=== PATIENT | female | born 1940 | race African-American/Black ===

== ENCOUNTER 2018-05-18 12:54 | Emergency (ER) | payer OTHER ==
--- OUTSIDE RECORDS SUMMARY | 2018-05-18 12:55 | XMS REPORT | Clinical Summary ---
:1940 Author Organization [facility] Address [address] [place] [address] Care Team Providers Name Role Phone Sue Jose DO Primary Care Provider Allergies Active Allergy Reactions Severity Noted Date Comments Codeine 12/27/2016 Iodine 12/27/2016 Penicillins 12/27/2016 Current Medications Prescription Sig. Disp. Refills Start Date End Date Status citalopram (CeleXA) TK 1/2 T PO 5 10/28/2016 Active 10 MG tablet QD. BYSTOLIC 10 mg TK 1 T PO 2 10/17/2016 Active tablet BID. lisinopril TK 1 T PO QD 5 12/20/2016 Active (PRINIVIL,ZESTRIL) 20 mg tablet GABAPENTIN ORAL Take by Active mouth. aspirin (ECOTRIN) Take 81 mg by Active 81 MG enteric mouth daily. coated tablet ASCORBATE CALCIUM Take by Active (VITAMIN C ORAL) mouth. CHOLECALCIFEROL, Take by Active VITAMIN D3, mouth. (VITAMIN D3 ORAL) rosuvastatin Take 20 mg by Active (CRESTOR) 20 MG mouth daily. tablet hydrALAZINE Take 1 tablet 180 tablet 3 06/13/2017 06/13/2018 Active (APRESOLINE) 50 MG (50 mg total) tablet by mouth 2 (two) times a day. clopidogrel TK 1 T PO QD 90 tablet 3 09/06/2017 Active (PLAVIX) 75 mg tablet clopidogrel TK 1 T PO QD 3 12/01/2016 09/06/2017 Discontinued (PLAVIX) 75 mg tablet fentaNYL UNW AND JUDY 1 0 10/21/2016 06/13/2017 Discontinued (DURAGESIC) 75 PA TO SKIN Q mcg/hr 3 DAYS. hydrALAZINE TK 1 T PO BID 3 10/13/2016 06/13/2017 Discontinued (APRESOLINE) 25 MG tablet lisinopril TK 1 T PO QD. 5 10/26/2016 06/13/2017 Discontinued (PRINIVIL,ZESTRIL) 10 mg tablet memantine (NAMENDA) 5 10/05/2016 06/13/2017 Discontinued 5 MG tablet Active Problems Problem Noted Date Essential hypertension 06/13/2017 Chest pain 12/27/2016 Coronary artery disease involving [place] heart without angina pectoris 2016 PAD (peripheral artery disease) 12/27/2016 Encounters Date Type Specialty Care Team Description 09/06/2017 Refill Cardiology Terry Mendenhall MA Med Refill 06/13/2017 Office Visit Cardiology Kenn Diane MD Essential hypertension (Primary Dx); Coronary artery disease involving [place] coronary artery of [place] heart without angina pectoris 06/13/2017 Refill Cardiology Smita Jay, Med Refill MA after 05/17/2017 Social History Tobacco Use Types Packs/Day Years Used Date Never Smoker Smokeless Tobacco: Never Used Alcohol Use Drinks/Week oz/Week Comments No Sex Assigned at Date Recorded Not on file Last Filed Vital Signs Vital Sign Reading Time Taken Blood Pressure 199/88 06/13/2017 2:25 PM CDT Pulse 58 06/13/2017 2:18 PM CDT Temperature - - Respiratory Rate - - Oxygen Saturation - - Inhaled Oxygen Concentration - - Weight 61.7 kg (136 lb) 06/13/2017 2:18 PM CDT Height 162.6 cm (5' 4") 06/13/2017 2:18 PM CDT Body Mass Index 23.34 06/13/2017 2:18 PM CDT Plan of Treatment Date Type Specialty Care Team Description 06/12/2018 Office Visit Cardiology Kenn Diane MD [address] [facility] [address] [place] [address] Health Maintenance Due Date Last Done Comments SHINGRIX VACCINE (#1) 1988 ZOSTER VACCINE 1998 PNEUMOCOCCAL POLYSACCHARIDE VACCINE AGE 65 AND OVER 2003 PNEUMOCOCCAL-13 2003 INFLUENZA VACCINE 06/27/2018 Results Not on fileafter 05/17/2017 Insurance Payer Benefit Plan / Group Subscriber ID Type Phone Address HUMANA MEDICARE HUMANA MEDICARE PPO/PFFS/ERS [facility] xxxxxxxxx PPO [phone] [place] [id number]
--- OUTSIDE RECORDS SUMMARY | 2018-05-18 12:55 | XMS REPORT | Continuity of Care Document ---
:1940 Author Organization Interface Problems Problem Status Onset Classification Date Comments Source Date Reported CERVICAL NECK Active Condition 07/06/2015 [facility] CERVICAL Active Condition 07/06/2015 [facility] RADICULOPATHY 5 [facility] CERVICAL Active Condition 07/06/2015 [facility] SPONDYLOSIS 5 [facility] WITHOUT MYELOPATHY CHRONIC PAIN Active Condition 07/06/2015 [facility] SYNDROME 5 [facility] HEADACHE Active Condition 07/06/2015 [facility] Medications Medication Details Route Status Patient Ordering Order Source Instructions Provider Date OMEPRAZOLE 40 Active 07/06/20 [facility] CPDR 15 Neuro GABAPENTIN 300 2 tabs po Active 07/06/20 [facility] CAPS qhs 15 Neuro CLOPIDOGREL Active 07/06/20 [facility] BISULFATE 75 15 Neuro MG TABS CRESTOR TABS Active 07/06/20 [facility] 15 [facility] LISINOPRIL 20 Active 07/06/20 [facility] TABS 15 Neuro BYSTOLIC 10 MG Active 07/06/20 [facility] TABS 15 Neuro HYDRALAZINE Active 07/06/20 [facility] HCL 20 MG/ML 15 Neuro SOLN FENTANYL 50 Active 07/06/20 [facility] MCG/HR PT72 15 Neuro VITAMIN C CAPS Active 07/06/20 [facility] 15 Neuro VITAMIN D TABS Active 07/06/20 [facility] 15 [facility] Allergies, Adverse Reactions, Alerts Substance Category Reaction Severity Reaction Status Date Comments Source type Reported IODINE Drug IODINE [facility] allergy 5 Neuro PENICILLIN Drug PENICILLIN [facility] allergy 5 [facility] Immunizations Immunization Date Given Site Status Last Updated Comments Source Results Order Results Value Reference Date Interpretation Comments Source Name Range Vital Signs Vital Sign Value Date Comments Source Weight 141 07/06/2015 [facility] Height 64 07/06/2015 [facility] Temperature Oral (F) 97.7 F 07/06/2015 [facility] Heart Rate 62 07/06/2015 [facility] Systolic (mm Hg) 210 07/06/2015 [facility] Diastolic (mm Hg) 78 07/06/2015 [facility] Neuro Weight 141 07/06/2015 [facility] Neuro Height 64 07/06/2015 [facility] Neuro Temperature Oral (F) 97.7 F 07/06/2015 [facility] Neuro Heart Rate 62 07/06/2015 [facility] Neuro Systolic (mm Hg) 210 07/06/2015 [facility] Neuro Diastolic (mm Hg) 78 07/06/2015 [facility] Neuro Encounters Location Location Encounter Encounter Reason Attending ADM DC Status Source Details Type Number For Provider Date Date Visit [facility] Office [id number] Tim 07/06 07/06 [facility] Neuroscienc Visit [address] LEDEZMA /2014 Neuro e [facility] [id number] ZACHARY 03/21 Active [facility] [place] Outpatient [id number] ZACHARY 05/17 Active [facility] [place] Outpatient [id number] ZACHARY 05/31 Active [facility] [place] Outpatient [id number] ZACHARY 09/19 Active [place] [address] [place] Procedures Procedure Code Date Perfomer Comments Source smoking/tobacco 14 07/06/2015 yes [facility] Neuro cessation, patient education and counseling
--- OUTSIDE RECORDS SUMMARY | 2018-05-18 12:55 | XMS REPORT | Continuity of Care Document ---
:1940 Author Organization [facility] Care Team Providers Name Role Phone Eyal LEDEZMA, Tim Adler Unavailable Insurance Providers Payer name Policy type / Policy ID Covered democrat ID Policy Thayer Coverage type AETNA - TRS ACTIVECARE SELECT - OPEN ACCESS AETNA - TRS ACTIVECARE SELECT - OPEN ACCESS Encounters Encounter Performer Location Date Office Visit Tim Birch MD [facility] [place] 06, 2015 Allergies, Adverse Reactions, Alerts Type Substance Reaction Status Drug allergy IODINE itching Active Drug allergy PENICILLIN Active Problems Problem Effective Dates Problem Status CERVICAL NECK PAIN Jul 06, 2015 Active CERVICAL RADICULOPATHY Jul 06, 2015 Active 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, 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 CHRONIC PAIN SYNDROME Jul 06, 2015 Active Procedures Date Description Comments Jul 02, 2015 smoking status currrent some day smoker Jul 06, 2015 smoking status Current some day smoker Jul 06, 2015 smoking/tobacco cessation, patient education yes and counseling Medications Medication Instructions Start Date Status OMEPRAZOLE 40 MG CPDR Jul 06, 2015 Active GABAPENTIN 300 MG CAPS 2 tabs po qhs Jul 06, 2015 Active CLOPIDOGREL BISULFATE 75 MG TABS Jul 06, 2015 Active CRESTOR TABS Jul 06, 2015 Active LISINOPRIL 20 MG TABS Jul 06, 2015 Active BYSTOLIC 10 MG TABS Jul 06, 2015 Active HYDRALAZINE HCL 20 MG/ML SOLN Jul 06, 2015 Active FENTANYL 50 MCG/HR PT72 Jul 06, 2015 Active VITAMIN C CAPS Jul 06, 2015 Active VITAMIN D TABS Jul 06, 2015 Active Vital Signs Date Description Test Result Jul 06, 2015 weight E&M - 3141-9 WEIGHT 141 lb Jul 06, 2015 height E&M - 8302-2 HEIGHT 64 in Jul 06, 2015 temperature E&M TEMPERATURE 97.7 deg f Jul 06, 2015 pulse rate E&M - 8867-4 PULSE RATE 62 /min Jul 06, 2015 blood pressure, systolic - 8480-6 BP SYSTOLIC 210 mm Hg Jul 06, 2015 blood pressure, diastolic - 8462-4 BP DIASTOLIC 78 mm Hg Jul 06, 2015 weight E&M - 3141-9 WEIGHT 141 lb Jul 06, 2015 height E&M - 8302-2 HEIGHT 64 in Jul 06, 2015 temperature E&M TEMPERATURE 97.7 deg f Jul 06, 2015 pulse rate E&M - 8867-4 PULSE RATE 62 /min Jul 06, 2015 blood pressure, systolic - 8480-6 BP SYSTOLIC 210 mm Hg Jul 06, 2015 blood pressure, diastolic - 8462-4 BP DIASTOLIC 78 mm Hg
--- OUTSIDE RECORDS SUMMARY | 2018-05-18 12:56 | XMS REPORT | Continuity of Care Document ---
:1940 Author Organization [facility] Care Team Providers Name Role Phone Eyal LEDEZMA, Tim Adler Unavailable Insurance Providers Payer name Policy type / Policy ID Covered constitution party ID Policy Thayer Coverage type AETNA - TRS ACTIVECARE SELECT - OPEN ACCESS AETNA - TRS ACTIVECARE SELECT - OPEN ACCESS Encounters Encounter Performer Location Date Office Visit Tim Birch MD [facility] Jul 06, 2015 Allergies, Adverse Reactions, Alerts Type Substance Reaction Status Drug allergy IODINE itching Active Drug allergy PENICILLIN Active Problems Problem Effective Dates Problem Status CERVICAL NECK PAIN Jul 06, 2015 Active CERVICAL RADICULOPATHY Jul 06, 2015 Active 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
[2018-05-18 14:05] LABS: Absolute Lymphocytes (CBC) 2.4 K/uL (0.7-4.9); Absolute Monocytes 0.8 K/uL (0.1-1.3); Absolute Neutrophil 4.2 K/uL (1.8-8.0); Basophils % 1.1 % (0-1.3); Eosinophils % 1.7 % (0-4.4); Hematocrit 21.8 % (36.0-45.0); Lymphocytes % 31.3 % (15.3-44.8); MCH 25.7 pg (27.0-35.0); MCV 84.2 fL (80-100); MPV 9.1 fL (7.6-11.3); Monocytes % 10.4 % (3.3-12.3); RBC Red Blood Cell Count 2.58 M/uL (3.86-4.86)
[2018-05-18 14:31] LABS: Anisocytosis 1+; Blood Morphology Comment NOTED (NOT SEEN); Hypochromasia 1+; Platelet Estimate ADEQ; Poikilocytosis 2+; Polychromasia 1+
--- NOTE | 2018-05-18 14:37 | RAD REPORT ---
EXAM DESCRIPTION: Dago Worley And Lat (2 Views)05/18/2018 2:29 pm CLINICAL HISTORY: Shortness of breath COMPARISON: 2016 FINDINGS: The proximal descending thoracic aorta is without significant change in appearance. It is prominent. The lungs appear clear of acute infiltrate. The heart is mildly enlarged IMPRESSION: Prominence of the descending thoracic aorta is unchanged from the prior exam. It is eith er ectatic or aneurysmal. Further evaluation could be obtained with CAT scan.
[2018-05-18 14:41] LABS: Urine Blood NEGATIVE (NEG); Urine Glucose NEGATIVE (NEG); Urine Protein 2+ (NEG)
[2018-05-18 14:46] LABS: Urine Bacteria 20-50 /HPF (<20); Urine Culture Reflex Order REFLEXED; Urine RBC <5 /HPF (NONE SEEN)
[2018-05-18] MEDS ORDERED: PANTOPRAZOLE 40 MG INJ ONE (14:55)
[2018-05-18] MEDS ORDERED: NA CHLORIDE 0.9% 250 ML ONE (14:55)
[2018-05-18 14:56] LABS: Potassium 4.9 mmol/L (3.5-5.1)
--- NOTE | 2018-05-18 15:28 | EDPHYS ---
Physician Documentation [facility] Name: Safia Christensen Age: 77 yrs Sex: Female : 1940 Arrival Date: 05/18/2018 Time: 12:56 Bed 30 Private MD: Sue Jose H ED Physician Martín Donohue HPI: 05/18 15:16 This 77 yrs old Black Female presents to ER via Wheelchair with complaints of Anemia. rn 15:[address] Hull for anemia, + chronic kidney disease, reports dark stool, no rn fever, no abd pain, + generalized weakness.. Onset: The symptoms/episode began/occurred at an unknown time. Severity of symptoms: At their worst the symptoms were mild in the emergency department the symptoms are unchanged. The patient has experienced a previous episode. The patient has been recently seen by a physician:. Historical: - Allergies: 13:06 No Known Allergies; sv - PMHx: 13:06 Arthritis; High Cholesterol; Hypertension; sv - PSHx: 13:06 Hysterectomy; cardiac stents; sv - Immunization history:: Adult Immunizations up to date. - Social history:: Smoking status: Patient uses tobacco products, denies chronic smoking, but will smoke occasionally. - Ebola Screening: : No symptoms or risks identified at this time. - Family history:: not pertinent. - Hospitalizations: : No recent hospitalization is reported. ROS: 15:16 Constitutional: Negative for fever, chills, and weight loss, Eyes: Negative for injury, rn pain, redness, and discharge, Neck: Negative for injury, pain, and swelling, Cardiovascular: Negative for chest pain, palpitations, and edema, Respiratory: + mild sob Abdomen/GI: Negative for abdominal pain, nausea, vomiting, diarrhea, and constipation, + dark stool MS/Extremity: Negative for injury and deformity, Skin: Negative for injury, rash, and discoloration, Neuro: Negative for headache, weakness, numbness, tingling, and seizure. Exam: 14:16 Abdomen/GI: Rectal exam: Stool: brown, guaiac positive. rn Vital Signs: 13:07 BP 116 / 58; Pulse 60; Resp 18; Temp 97.3; Pulse Ox 100% ; Weight 65.77 kg; Height 5 sv ft. 4 in. (162.56 cm); 14:09 BP 104 / 49; Pulse 65; Resp 16; Pulse Ox 100% ; tl3 15:17 BP 137 / 75; Pulse 51; Resp 16; Pulse Ox 99% on R/A; Pain 0/10; kr2 16:30 BP 121 / 62; Pulse 72; Resp 18; Temp 97.9; Pulse Ox 99% on R/A; kr2 16:35 BP 130 / 66; Pulse 76; Resp 18; Temp 98.4; Pulse Ox 99% on R/A; kr2 16:40 kr2 13:07 Body Mass Index 24.89 (65.77 kg, 162.56 cm) sv 16:30 prior to start of transfusion kr2 16:35 5 minutes after start of transfusion kr2 16:40 Patient transferred to EMS care, [facility] to continue transfusion in route to kr2 receiving facility MDM: 13:03 Patient medically screened. rn 15:20 ED course: [facility], waiting for GI rn clearance. . 15:25 Differential Diagnosis anemia, UGIB. Data reviewed: vital signs, nurses notes, lab test rn result(s), EKG, radiologic studies, and as a result, I will admit patient. Counseling: I had a detailed discussion with the patient and/or guardian regarding: the historical points, exam findings, and any diagnostic results supporting the discharge/admit diagnosis, lab results, radiology results, the need to transfer to another facility, [facility] does not immediately have the required specialist. Response to treatment: the patient's symptoms have mildly improved after treatment, and as a result, I will admit patient. Admission orders: after a detailed discussion of the patient's condition and case, the admit orders are written by me. 05/18 13:16 Order name: CBC with Diff; Complete Time: 14:42 rn 05/18 13:16 Order name: Basic Metabolic Panel; Complete Time: 15:13 rn 05/18 13:16 Order name: Type And Screen rn 05/18 13:16 Order name: Troponin (emerg Dept Use Only); Complete Time: 14:42 rn 05/18 13:16 Order name: BNP; Complete Time: 15:13 rn 05/18 13:18 Order name: Urine Microscopic Only; Complete Time: 15:13 rn 05/18 13:16 Order name: XRAY Chest Pa And Lat (2 Views); Complete Time: 14:42 rn 05/18 14:17 Order name: Occult Blood--Ancillary 05/18 14:20 Order name: Manual Differential; Complete Time: 14:42 [facility] 05/18 14:23 Order name: Urine Dipstick--Ancillary (enter results); Complete Time: 14:42 bd 05/18 14:48 Order name: Urine Culture [facility] 05/18 14:59 Order name: Bb Add On 05/18 15:29 Order name: Packed RBC Leukored -1 [facility] 05/18 13:16 Order name: IV Start; Complete Time: 15:16 rn 05/18 13:16 Order name: EKG; Complete Time: 13:16 rn 05/18 13:16 Order name: EKG - Nurse/Tech; Complete Time: 14:08 rn 05/18 13:16 Order name: Urine Dipstick-Ancillary (obtain specimen); Complete Time: 15:16 rn Administered Medications: 15:10 Drug: ProTONIX 40 mg Route: IVP; Site: left antecubital; kr2 16:04 Follow up: Response: No adverse reaction kr2 15:15 Drug: ProTONIX 8 mg/hr Route: IV; Rate: 25 ml/hr; Site: left antecubital; kr2 Disposition: 05/18/18 15:[address] [facility]. Diagnosis are Upper GI Bleed, Anemia, Weakness. - Reason for transfer: Higher level of care. - Accepting physician is . - Condition is Stable. - Problem is an ongoing problem. - Symptoms have improved. Signatures: Dispatcher [employer] [facility] Deb Noriega RN Martín Arreaga MD MD rn Reaves, Karey, RN RN kr2 Gladis Aguilar RN RN tl3 Corrections: (The following items were deleted from the chart) 16:45 15:27 05/18/2018 15:[address] [facility]. Diagnosis is tl3 Upper GI Bleed; Anemia; Weakness. Reason for transfer: Higher level of care. Accepting physician is . Condition is Stable. Problem is an ongoing problem. Symptoms have improved. rn
--- NOTE | 2018-05-18 15:28 | ER ---
Nurse's Notes [facility] Name: Safia Christensen Age: 77 yrs Sex: Female : 1940 Arrival Date: 05/18/2018 Time: 12:56 Bed 30 Private MD: Sue Jose H Diagnosis: Upper GI Bleed;Anemia;Weakness Presentation: 05/18 13:05 Presenting complaint: Patient states: sent by Dr Hull for low hemoglobin by lab draw sv this morning. Pt reports weakness, Denies SOB or CP. Transition of care: patient was not received from another setting of care. Onset of symptoms was May 18, 2018. Risk Assessment: Do you want to hurt yourself or someone else? Patient reports no desire to harm self or others. Care prior to arrival: None. 13:05 Method Of Arrival: Wheelchair sv 13:05 Acuity: DARSHAN 3 sv 13:23 Initial Sepsis Screen: Does the patient meet any 2 criteria? No. Patient's initial kr2 sepsis screen is negative. Does the patient have a suspected source of infection? No. Patient's initial sepsis screen is negative. Historical: - Allergies: 13:06 No Known Allergies; sv - PMHx: 13:06 Arthritis; High Cholesterol; Hypertension; sv - PSHx: 13:06 Hysterectomy; cardiac stents; sv - Immunization history:: Adult Immunizations up to date. - Social history:: Smoking status: Patient uses tobacco products, denies chronic smoking, but will smoke occasionally. - Ebola Screening: : No symptoms or risks identified at this time. - Family history:: not pertinent. - Hospitalizations: : No recent hospitalization is reported. Screenin:22 Abuse screen: Denies threats or abuse. Denies injuries from another. Nutritional kr2 screening: No deficits noted. Tuberculosis screening: No symptoms or risk factors identified. Fall Risk None identified. Assessment: 13:14 General: Appears in no apparent distress. comfortable, well groomed, well developed, kr2 well nourished, Behavior is calm, cooperative, appropriate for age. Pain: Denies pain. Neuro: Level of Consciousness is awake, alert, obeys commands, Oriented to person, place, time, situation, Appropriate for age. Cardiovascular: Reports fatigue, lightheadedness, Heart tones S1 S2 present Capillary refill < 3 seconds in bilateral fingers Patient's skin is warm and dry. Respiratory: Airway is patent Respiratory effort is even, unlabored, Respiratory pattern is regular, symmetrical. GI: Abdomen is flat, non-distended. GI: Reports dark stools. : Denies burning with urination. EENT: Nares are clear Oral mucosa is moist. Derm: Skin is intact, is healthy with good turgor, Skin is pink, warm \T\ dry. Musculoskeletal: Circulation, motion, and sensation intact. 14:15 Reassessment: Patient appears in no apparent distress at this time. Patient and/or kr2 family updated on plan of care and expected duration. Pain level reassessed. Patient is alert, oriented x 3, equal unlabored respirations, skin warm/dry/pink. Patient denies pain at this time. 15:16 Reassessment: Patient appears in no apparent distress at this time. Patient and/or kr2 family updated on plan of care and expected duration. Pain level reassessed. Patient is alert, oriented x 3, equal unlabored respirations, skin warm/dry/pink. Patient denies pain at this time. 16:00 Reassessment: Report called to receiving facility nurse, TAM Murphy. kr2 16:30 Reassessment: Patient appears in no apparent distress at this time. Patient and/or kr2 family updated on plan of care and expected duration. Pain level reassessed. Patient is alert, oriented x 3, equal unlabored respirations, skin warm/dry/pink. Blood transfusion initiated, Vi Goddard RN verified blood products and blood transfusion initiated Patient denies pain at this time. 16:40 Reassessment: Patient appears in no apparent distress at this time. Patient and/or kr2 family updated on plan of care and expected duration. Pain level reassessed. Patient is alert, oriented x 3, equal unlabored respirations, skin warm/dry/pink. Transfer of care to EMS, blood transfusion to continue in route. Dr. Donohue aware Patient denies pain at this time. Vital Signs: 13:07 BP 116 / 58; Pulse 60; Resp 18; Temp 97.3; Pulse Ox 100% ; Weight 65.77 kg; Height 5 sv ft. 4 in. (162.56 cm); 14:09 BP 104 / 49; Pulse 65; Resp 16; Pulse Ox 100% ; tl3 15:17 BP 137 / 75; Pulse 51; Resp 16; Pulse Ox 99% on R/A; Pain 0/10; kr2 16:30 BP 121 / 62; Pulse 72; Resp 18; Temp 97.9; Pulse Ox 99% on R/A; kr2 16:35 BP 130 / 66; Pulse 76; Resp 18; Temp 98.4; Pulse Ox 99% on R/A; kr2 16:40 kr2 13:07 Body Mass Index 24.89 (65.77 kg, 162.56 cm) sv 16:30 prior to start of transfusion kr2 16:35 5 minutes after start of transfusion kr2 16:40 Patient transferred to [facility] care, [facility] to [facility] transfusion in route to kr2 receiving facility ED Course: 12:56 Patient arrived in ED. mr 12:56 Sue Jose DO is Private Physician. mr 13:02 Karina Davis, RN is Primary Nurse. kr2 13:03 Martín Donohue MD is Attending Physician. rn 13:06 Triage completed. sv 13:07 Arm band placed on right wrist. sv 13:23 Patient has correct armband on for positive identification. Bed in low position. Call kr2 light in reach. Side rails up X 1. Adult w/ patient. monitoring analyst on. Pulse ox on. NIBP on. Door closed. Warm blanket given. Pillow given. Head of bed elevated. 13:32 EKG done, by oncology technician. reviewed by Martín Donohue MD. sm3 14:00 Missed attempt(s): 22 gauge in right forearm. Bleeding controlled, band aid applied, dh3 catheter tip intact. 14:00 Initial lab(s) drawn, by md, sent to lab. T\T\S collected, blood band applied to patient. dh3 14:26 XRAY Chest Pa And Lat (2 Views) In Process Unspecified. EDMS 14:45 Inserted saline lock: 20 gauge in left antecubital area, using aseptic technique. Blood kr2 collected. 16:13 Consent for blood and/or blood product transfusion explained by staff, explained by kr2 physician, signed by patient. 16:28 Inserted saline lock: 22 gauge in right antecubital area, using aseptic technique. dh3 16:40 No provider procedures requiring assistance completed. Patient transferred, IV remains kr2 in place. Administered Medications: 15:10 Drug: ProTONIX 40 mg Route: IVP; Site: left antecubital; kr2 16:04 Follow up: Response: No adverse reaction kr2 15:15 Drug: ProTONIX 8 mg/hr Route: IV; Rate: 25 ml/hr; Site: left antecubital; kr2 Outcome: 15:27 ER care complete, transfer ordered by . rn 16:40 Transferred by ground EMS to [facility], Transfer form completed. kr2 16:40 Condition: stable 16:40 Instructed on the need for transfer. 16:45 Patient left the ED. tl3 Signatures: Dispatcher [employer] EDDeb Gallardo RN RN sv Rivera, Maria mr Nieto, Roman, MD MD rn Herrera, Madeleine [facility] Karina Davis RN RN kr2 Gladis Aguilar RN RN tl3 Digna العلي 3
[2018-05-18 17:14] VITALS: TEMP 97.3
[2018-05-18 17:28] VITALS: BP 137/75; O2SAT 99
--- NOTE | 2018-05-18 17:31 | EKG ---
Test Date: 2018-05-18 Test Time: 13:26:06 Parts Clerk: SERJIO MEASUREMENT RESULTS: Intervals: Rate: 60 NE: 200 QRSD: 86 QT: 446 QTc: 446 [place]: P: 35 NE: 200 QRS: 85 T: 39 INTERPRETIVE STATEMENTS: Sinus rhythm with premature atrial complexes with aberrant conduction Nonspecific T wave abnormality Abnormal ECG Compared to ECG 07/26/2016 10:11:04 Atrial premature complex(es) now present Aberrant conduction of supraventricular beat(s) now present T-wave abnormality now present Sinus bradycardia no longer present Left ventricular hypertrophy no longer present Electronically Signed On 05-18-18 17:30:16 CDT by Nathaniel Grajeda
== END 2018-05-18 16:45 | disposition short-term general hospital (02) ==
LOC: ER 12:54
PROC: 30233N1 Transfusion of Nonautologous Red Blood Cells into Peripheral Vein, Percutaneous Approach (ICD-10-PCS; principal; 2018-05-18)
DX: D64.9 Anemia, unspecified (principal); I12.9 Hypertensive chronic kidney disease with stage 1 through stage 4 chronic kidney disease, or unspecified chronic kidney disease; N18.9 Chronic kidney disease, unspecified; Z72.0 Tobacco use; Z95.818 Presence of other cardiac implants and grafts
CPT/HCPCS: 36415; 36430; 71046; 80048; 82272; 83880; 84484; 85025; 86850; 86900; 86901; 87086; 87088; 93005; 96374; 99285; C9113; P9016; 72100; 81003; 81015; 82565; 84520; 85652

== ENCOUNTER 2019-02-22 10:32 | Inpatient (IN) | payer OTHER ==
--- OUTSIDE RECORDS SUMMARY | 2019-02-22 10:35 | XMS REPORT | Clinical Summary ---
:1940 Author Organization [facility] Address [address] [place] [address] Care Team Providers Name Role Phone Sue Jose DO Primary Care Provider Allergies Active Allergy Reactions Severity Noted Date Comments Codeine 12/27/2016 Iodine 12/27/2016 Nsaids (Non-Steroidal 05/19/2018 History of gastritis and Anti-Inflammatory Drug) ulcers Penicillins 12/27/2016 Medications Medication Sig Dispensed Refills Start Date End Date Status citalopram TK 1/2 T PO 5 10/28/2016 Active (CeleXA) 10 MG QD. tablet lisinopril TK 1 T PO QD 5 12/20/2016 Active (PRINIVIL,ZESTRIL) 20 mg tablet aspirin (ECOTRIN) Take 81 mg by 0 Active 81 MG enteric mouth daily. coated tablet ASCORBATE CALCIUM Take by mouth. 0 Active (VITAMIN C ORAL) CHOLECALCIFEROL, Take by mouth. 0 Active VITAMIN D3, (VITAMIN D3 ORAL) rosuvastatin Take 20 mg by 0 Active (CRESTOR) 20 MG mouth daily. tablet gabapentin TK 2 CS PO 0 04/30/2018 Active (NEURONTIN) 300 mg BID. capsule pantoprazole Take 40 mg by 0 Active (PROTONIX) 40 MG mouth daily. EC tablet hydrALAZINE Take 1 tablet 270 tablet 3 06/12/2018 06/12/2019 Active (APRESOLINE) 50 MG (50 mg total) tablet by mouth 3 (three) times a day. metoprolol Take 1 tablet 90 tablet 3 06/12/2018 06/12/2019 Active succinate XL (50 mg total) (TOPROL-XL) 50 mg by mouth 24 hr tablet daily. memantine 5 11/10/2018 Active (NAMENDA) 5 MG tablet amLODIPine Take 1 tablet 90 tablet 3 12/11/2018 Active (NORVASC) 5 mg (5 mg total) tablet by mouth daily. clopidogrel TAKE 1 TABLET 90 tablet 0 12/12/2018 Active (PLAVIX) 75 mg BY MOUTH EVERY tablet DAY clopidogrel TAKE 1 TABLET 90 tablet 0 01/08/2019 Active (PLAVIX) 75 mg BY MOUTH EVERY tablet DAY BYSTOLIC 10 mg TK 1 T PO 2 10/17/2016 06/12/2018 Discontinued tablet BID. GABAPENTIN ORAL Take 300 mg by 0 06/12/2018 Discontinued mouth 2 (two) times a day. 2 capsules twice a day hydrALAZINE Take 1 tablet 180 tablet 3 06/13/2017 06/12/2018 Discontinued (APRESOLINE) 50 MG (50 mg total) tablet by mouth 2 (two) times a day. clopidogrel TK 1 T PO QD 90 tablet 3 09/06/2017 10/16/2018 Discontinued (PLAVIX) 75 mg tablet clopidogrel TAKE 1 TABLET 90 tablet 0 10/16/2018 12/12/2018 Discontinued (PLAVIX) 75 mg BY MOUTH EVERY tablet DAY Active Problems Problem Noted Date Bilateral carotid bruits 12/11/2018 Essential hypertension 06/13/2017 Chest pain 12/27/2016 Coronary artery disease involving torres martinez heart without angina pectoris 2016 PAD (peripheral artery disease) 12/27/2016 Encounters Date Type Specialty Care Team Description 01/08/2019 Refill Cardiology Kenn Becerril MD Med Refill 12/12/2018 Refill Cardiology Kenn Becerril MD Med Refill 12/11/2018 Office Visit Cardiology Kenn Becerril MD Coronary artery disease involving torres martinez coronary artery of torres martinez heart without angina pectoris (Primary Dx); Essential hypertension; PAD (peripheral artery disease) (HCC); Bilateral carotid bruits 10/16/2018 Refill Cardiology Kenn Becerril MD Med Refill 06/12/2018 Office Visit Cardiology Kenn Becerril MD Coronary artery disease involving torres martinez coronary artery of torres martinez heart without angina pectoris (Primary Dx); PAD (peripheral artery disease); Essential hypertension after 02/21/2018 Family History Relation Name Status Comments Father Mother Social History Tobacco Use Types Packs/Day Years Used Date Never Smoker Smokeless Tobacco: Never Used Alcohol Use Drinks/Week oz/Week Comments No Sex Assigned at Date Recorded Not on file Job Start Date Occupation Industry Not on file Not on file Not on file Travel History Travel Start Travel End No recent travel history available. Last Filed Vital Signs Vital Sign Reading Time Taken Blood Pressure 160/87 12/11/2018 1:11 PM [employer] Pulse 62 12/11/2018 1:11 PM [employer]ERK Temperature - - Respiratory Rate - - Oxygen Saturation - - Inhaled Oxygen Concentration - - Weight 70.3 kg (155 lb) 12/11/2018 1:11 PM [employer]LE[employer] CLERK Height 165.1 cm (5' 5") 12/11/2018 1:11 PM [employer]LE[employer] CLERK Body Mass Index 25.79 12/11/2018 1:11 PM [employer]LE[employer] CLERK Plan of Treatment Date Type Specialty Care Team Description 06/11/2019 Office Visit Cardiology Kenn Becerril MD [address] [facility] [address] [place] [phone] Health Maintenance Due Date Last Done Comments SHINGLES VACCINES (#1) 1988 65+ PNEUMOCOCCAL VACCINE (1 of 2 - PCV13) 2003 PNEUMOCOCCAL POLYSACCHARIDE VACCINE AGE 65 AND OVER 2003 INFLUENZA VACCINE 06/27/2018 Procedures Procedure Name Priority Date/Time Associated Diagnosis Comments US CAROTID DUPLEX Routine 12/13/2018 11:50 AM Coronary artery Results for this BILATERAL [employer]LE[employer] CLERK disease involving procedure are in torres martinez coronary the results artery of torres martinez section. heart without angina pectoris Essential hypertension PAD (peripheral artery disease) (HCC) Bilateral carotid bruits US RENAL DOPPLER Routine 12/11/2018 3:49 PM Coronary artery Results for this [employer]LE[employer] CLERK disease involving procedure are in torres martinez coronary the results artery of torres martinez section. heart without angina pectoris Essential hypertension PAD (peripheral artery disease) (HCC) Bilateral carotid bruits after 02/21/2018 Results Us carotid duplex (12/13/2018 11:50 AM BANK [employer] C[employer] COLLECTION CLERK) Narrative Performed At [facility] Carotid Artery Ultrasound Report Pat.Name:LAUREN HELLER.ID:[id number] .Date: 12/13/2018 Refer.MD:KENN BECERRIL MD Exam Time: 11:13:00 AM Study Type:Carotid DOBAge:1940,78YSex: FEMALE Sonogrphr: Sugey Rucker RVT Pat. Stat.:Outpatient Room:[facility] TapeVol: SD, CPT - 4: 40542 Echo Event ID:[id number] Order ID:[id number] Reason for Study:Bilateral carotid bruit, Carotid artery disease, S/P left carotid endarterectomy, Hx of HTN, CAD. Procedures:Colorflow, Grayscale/2D, Pulsed wave Doppler SUMMARY: CAROTID ARTERY SCAN RIGHT:There is scattered hard plaquein the common carotid artery. There is hard and calcified plaque noted in the bulb extending into the proximal internal carotid artery. There external carotid artery is artery is clearly not visualized in sorensen scale. Colorflow is minimally disturbed. The vertebral artery has absent color flow and Doppler signals. LEFT:There is scattered hard plaquein the common carotid artery.There is satisfactory appearance of distal common carotid to proximal internal carotid endarterectomy site. The external carotid artery is poorly seen in the sorensen scale. Color flow appears normal. PRELIMINARY FINDINGS 1. <50% stenosis in the right bulb/internal carotid artery. 2. Satisfactory appearance of left distal common carotid to proximal internal carotid endarterectomy site. 3. The right vertebral artery has absent color flow and Doppler signals, suggestive of occlusion. 4. Antegrade flow in the left vertebral artery. 5. Non stenotic scattered hard plaque in the common carotid artery, bilaterally. PHYSICIAN INTERPRETATION Bilateral carotid duplex exam demonstrates atherosclerotic plaque in both common carotid arteries and the right bulb/internal carotid artery with <50% stenosis. There is satisfactory appearance of left distal common carotid to proximal internal carotid artery endarterectomy site. Occlusion of the right vertebral artery. Left vertebral artery has antegrade flow. Carotid Findings:RightLeft Verteb.Flw Absent Antegrade Subclavian Biphasic Biphasic MEASUREMENTS: DOPPLER Right CCA Dist CCA Dist PSV70.5 cm/sCCA Dist EDV12.1 cm/s Right CCA Mid CCA Mid PSV 99 cm/sCCA Mid EDV 12.6 cm/s Right CCA Prox CCA Prox PSV 115 cm/sCCA Prox EDV14.1 cm/s Right Bulb Bulb PSV55.7 cm/sBulb EDV10.8 cm/s Right ECA Prox ECA Prox PSV88.5 cm/sECA Prox EDV4.15 cm/s Right ICA Dist ICA Dist PSV65 cm/[place] Dist EDV17.8 cm/s Right ICA Mid ICA Mid PSV 87.3 cm/[place] Mid EDV 26.1 cm/s Right ICA Prox ICA Prox PSV89.9 cm/[place] Prox EDV23.5 cm/s Right Vertebral Vertebral PSV 17.5 cm/sVertebral EDV0 cm/s Right SCA Prox SCA Prox PSV 181 cm/sSCA Prox EDV 0 cm/s Left CCA Mid CCA Mid PSV 91.4 cm/sCCA Mid EDV 14.9 cm/s Left CCA Prox CCA Prox PSV77.3 cm/sCCA Prox EDV10.4 cm/s Left Bulb Bulb PSV80.2 cm/sBulb EDV 0 cm/s Left ECA Prox ECA Prox PSV58.2 cm/sECA Prox EDV5.71 cm/s Left ICA Dist ICA Dist PSV95.3 cm/[place] Dist EDV27.2 cm/s Left ICA Mid ICA Mid PSV 73.7 cm/[place] Mid EDV 20.2 cm/s Left ICA Prox ICA Prox PSV74.9 cm/[place] Prox EDV19.3 cm/s Left Vertebral Vertebral PSV 53.3 cm/sVertebral EDV 10.2 cm/s Left SCA Prox SCA Prox PSV 121 cm/sSCA Prox EDV1.63 cm/s Right ICA/CCA Ratio ICA/CCA PSV0.908 Left ICA/CCA Ratio ICA/CCA PSV0.819 Left CCA Dist CCA Dist PSV67 cm/sCCA Dist EDV13 cm/s Signed 12/15/2018 06:47 AM Kenn Becerril MD Procedure Note Interface, Radiology Results In - 12/15/2018 6:48 AM B[employer]LECTION CLERK [facility] Carotid Artery Ultrasound Report Pat.Name: LAUREN HELLER Pat.ID: [id number] St.Date: 12/13/2018 Refer.MD: KENN BECERRIL MD Exam Time: 11:13:00 AM Study Type:Carotid Age: 8 1940,78Y Sex: FEMALE Sonogrphr: Sugey Rucker RVT Pat. Stat.:Outpatient Room: [place] Tape Vol: SD, CPT - 4: 11778 Echo Event ID:[id number] Order ID: [id number] Reason for Study:Bilateral carotid bruit, Carotid artery disease, S/P left carotid endarterectomy, Hx of HTN, CAD. Procedures:Colorflow, Grayscale/2D, Pulsed wave Doppler SUMMARY: CAROTID ARTERY SCAN RIGHT: There is scattered hard plaque in the common carotid artery. There is hard and calcified plaque noted in the bulb extending into the proximal internal carotid artery. There external carotid artery is artery is clearly not visualized in sorensen scale. Colorflow is minimally disturbed. The vertebral artery has absent color flow and Doppler signals. LEFT: There is scattered hard plaque in the common carotid artery. There is satisfactory appearance of distal common carotid to proximal internal carotid endarterectomy site. The external carotid artery is poorly seen in the sorensen scale. Color flow appears normal. PRELIMINARY FINDINGS 1. <50% stenosis in the right bulb/internal carotid artery. 2. Satisfactory appearance of left distal common carotid to proximal internal carotid endarterectomy site. 3. The right vertebral artery has absent color flow and Doppler signals, suggestive of occlusion. 4. Antegrade flow in the left vertebral artery. 5. Non stenotic scattered hard plaque in the common carotid artery, bilaterally. PHYSICIAN INTERPRETATION Bilateral carotid duplex exam demonstrates atherosclerotic plaque in both common carotid arteries and the right bulb/internal carotid artery with <50% stenosis. There is satisfactory appearance of left distal common carotid to proximal internal carotid artery endarterectomy site. Occlusion of the right vertebral artery. Left vertebral artery has antegrade flow. Carotid Findings: Right Left Verteb.Flw Absent Antegrade Subclavian Biphasic Biphasic MEASUREMENTS: DOPPLER Right CCA Dist CCA Dist PSV 70.5 cm/s CCA Dist EDV 12.1 cm/s Right CCA Mid CCA Mid PSV 99 cm/s CCA Mid EDV 12.6 cm/s Right CCA Prox CCA Prox PSV 115 cm/s CCA Prox EDV 14.1 cm/s Right Bulb Bulb PSV 55.7 cm/s Bulb EDV 10.8 cm/s Right ECA Prox ECA Prox PSV 88.5 cm/s ECA Prox EDV 4.15 cm/s Right ICA Dist ICA Dist PSV 65 cm/s ICA Dist EDV 17.8 cm/s Right ICA Mid ICA Mid PSV 87.3 cm/s ICA Mid EDV 26.1 cm/s Right ICA Prox ICA Prox PSV 89.9 cm/s ICA Prox EDV 23.5 cm/s Right Vertebral Vertebral PSV 17.5 cm/s Vertebral EDV 0 cm/s Right SCA Prox SCA Prox PSV 181 cm/s SCA Prox EDV 0 cm/s Left CCA Mid CCA Mid PSV 91.4 cm/s CCA Mid EDV 14.9 cm/s Left CCA Prox CCA Prox PSV 77.3 cm/s CCA Prox EDV 10.4 cm/s Left Bulb Bulb PSV 80.2 cm/s Bulb EDV 0 cm/s Left ECA Prox ECA Prox PSV 58.2 cm/s ECA Prox EDV 5.71 cm/s Left ICA Dist ICA Dist PSV 95.3 cm/s ICA Dist EDV 27.2 cm/s Left ICA Mid ICA Mid PSV 73.7 cm/s ICA Mid EDV 20.2 cm/s Left ICA Prox ICA Prox PSV 74.9 cm/s ICA Prox EDV 19.3 cm/s Left Vertebral Vertebral PSV 53.3 cm/s Vertebral EDV 10.2 cm/s Left SCA Prox SCA Prox PSV 121 cm/s SCA Prox EDV 1.63 cm/s Right ICA/CCA Ratio ICA/CCA PSV 0.908 Left ICA/CCA Ratio ICA/CCA PSV 0.819 Left CCA Dist CCA Dist PSV 67 cm/s CCA Dist EDV 13 cm/s Signed 12/15/2018 06:47 AM Kenn Becerril MD Performing Organization Address [facility]ode Phone Number [facility]UP[facility] [address] [place] [place] [address] [place] Renal Doppler (12/11/2018 3:49 PM BANK CR[employer] C[employer] COLLECTION CLERK) Narrative Performed At EXAMINATION:US RENAL DOPPLER [facility] CLINICAL HISTORY:I25.10 Atherosclerotic heart disease of torres martinez coronary artery without angina pectoris, I10 Essential (primary) hypertension, other TECHNIQUE: Examination includes a full duplex Doppler scan of the renal vessels (real-time B mode grayscale, Doppler spectral analysis, and Doppler color flow imaging). COMPARISON:None. FINDINGS: There is a delayed upstroke in the right mid renal artery. 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 The right renal vein is patent.The resistive index measures 0.75-0.88. Left renal arterial waveforms demonstrate normal systolic upstrokes and good end diastolic flow. The left renal vein is patent.The resistive index measures 8.0. IMPRESSION: Equivocal findings in the right kidney for which right renal artery stenosis cannot be excluded. If further evaluation is desired, suggest CTA or MRA. [facility]-[id number] Procedure Note Interface, Radiology Results Incoming - 12/11/2018 4:43 PM BANK CREDIT CARD COLLECTION CLERK EXAMINATION: US RENAL DOPPLER CLINICAL HISTORY: I25.10 Atherosclerotic heart disease of torres martinez coronary artery without angina pectoris, I10 Essential (primary) hypertension, other TECHNIQUE: Examination includes a full duplex Doppler scan of the renal vessels (real-time B mode grayscale, Doppler spectral analysis, and Doppler color flow imaging). COMPARISON: None. FINDINGS: There is a delayed upstroke in the right mid renal artery. 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 The right renal vein is patent. The resistive index measures 0.75-0.88. Left renal arterial waveforms demonstrate normal systolic upstrokes and good end diastolic flow. The left renal vein is patent. The resistive index measures 8.0. IMPRESSION: Equivocal findings in the right kidney for which right renal artery stenosis cannot be excluded. If further evaluation is desired, suggest CTA or MRA. [facility]-[id number] Performing Organization Address [facility]/Zipcode Phone Number [facility] [address] [place] [address] after 02/21/2018 Insurance Payer Benefit Plan / Group Subscriber ID Type Phone Address [employer]NA MEDICARE HU[employer]NA MEDICARE PPO/PFFS/[facility] xxxxxxxxx PPO
--- OUTSIDE RECORDS SUMMARY | 2019-02-22 10:36 | XMS REPORT | Continuity of Care Document ---
[...] [facility] Diastolic (mm Hg) 78 07/06/2015 [facility] Weight 141 07/06/2015 [facility] Height 64 07/06/2015 [facility] Temperature Oral (F) 97.7 F 07/06/2015 [facility] Heart Rate 62 07/06/2015 [facility] Systolic (mm Hg) 210 07/06/2015 [facility] Diastolic (mm Hg) 78 07/06/2015 [facility] Encounters Location Location Encounter Encounter Reason Attending ADM DC Status Source Details Type Number For Provider Date Date Visit [facility] Office [id number] Tim 07/06 07/06 [facility] Visit 9640 Eyal LEDEZMA /2014 [facility] [id number] ZACHARY 03/21 Active [facility] [id number] ZACHARY 05/17 Active [facility] [place] [facility] [id number] ZACHARY 05/31 Active [facility] [place] [facility] [id number] ZACHARY 08/16 Active [facility] [place] [facility] [id number] ZACHARY 09/19 Active [facility] [place] [facility] [id number] Zachary 02/20 Active [facility] [place] [facility] [id number] Zachary 02/20 Active [facility] [place] [facility] [id number] Zachary 04/24 Active [facility] [place] Procedures Procedure Code Date Perfomer Comments Source smoking/tobacco 14 07/06/2015 yes [facility] cessation, patient education and counseling
--- OUTSIDE RECORDS SUMMARY | 2019-02-22 10:36 | XMS REPORT | Continuity of Care Document ---
:1940 Author Organization [facility] Care Team Providers Name Role Phone Eyal LEDEZMA, Tim Adler Unavailable Insurance Providers Payer name Policy type / Policy ID Covered alliance party ID Policy Thayer Coverage type AETNA - TRS ACTIVECARE SELECT - OPEN ACCESS AETNA - TRS ACTIVECARE SELECT - OPEN ACCESS Encounters Encounter Performer Location Date Office Visit Tim Birch MD [facility] Jul 06, 2015 Allergies, Adverse Reactions, [...]
--- OUTSIDE RECORDS SUMMARY | 2019-02-22 10:36 | XMS REPORT | Clinical Summary ---
:1940 Author Organization [facility] Address [address] [place] [address] Care Team Providers Name Role Phone Pcp, No Primary Care Provider Unavailable Allergies Active Allergy Reactions Severity Noted Date Comments Nsaids (Non-Steroidal 05/19/2018 History of gastritis and Anti-Inflammatory Drug) ulcers Medications Medication Sig Dispensed Refills Start Date End Date Status rosuvastatin Take 1 tablet by 0 06/07/2017 Active (CRESTOR) 20 MG mouth. tablet citalopram (CELEXA) Take 0.5 tablets 0 08/16/2017 Active 10 MG tablet by mouth. memantine (NAMENDA) Take 10 mg by 0 Active 10 MG tablet mouth. clopidogrel (PLAVIX) TK 1 T PO QD 0 09/06/2017 Active 75 mg tablet gabapentin TK 2 CS PO BID. 1 04/30/2018 Active (NEURONTIN) 300 MG capsule lisinopril TK 1 T PO BID 4 03/25/2018 Active (PRINIVIL,ZESTRIL) 20 MG tablet BYSTOLIC 10 mg tablet TK 1 T PO BID. 2 03/17/2018 Active furosemide (LASIX) 20 Take 1 tablet 20 tablet 0 05/19/2018 05/19/2019 Active MG tablet (20 mg total) by mouth daily as needed (leg swelling). hydrALAZINE Take 50 mg by 0 06/13/2017 06/13/2018 (APRESOLINE) 50 MG mouth. tablet pantoprazole Take 1 tablet 60 tablet 2 05/19/2018 08/17/2018 (PROTONIX) 40 MG (40 mg total) by tablet mouth 2 (two) times daily for 90 days. 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 Overview: Mild, no stents Duodenitis 05/19/2018 Gastritis 05/19/2018 Esophagitis 05/19/2018 GI bleed 05/18/2018 Elevated brain natriuretic peptide (BNP) level 05/18/2018 Leg swelling 05/18/2018 Essential hypertension HLD (hyperlipidemia) Encounters Date Type Specialty Care Team Description 05/19/2018 Anesthesia Event Gastroenterology Stephanie Rossi, ROHAN 05/19/2018 Surgery Gastroenterology Heather Leyva UPPER ENDOSCOPY,BIOPSY MD Dory 05/18/2018 Hospital Cardiology Changela, Elevated brain natriuretic peptide (BNP) level; - Encounter Ashly Garrison MD Essential hypertension; 05/19/2018 Nalam, Ramonita Gastrointestinal hemorrhage with melena; MD Zoya Hyperlipidemia, unspecified hyperlipidemia type; Leg swelling 05/18/2018 Orders Only General Internal Medicine 05/18/2018 Telephone Gastroenterology Heather Leyva Fatigue MD Dory after 02/21/2018 Social History Tobacco Use Types Packs/Day Years Used Date Never Assessed Sex Assigned at Date Recorded Not on file Job Start Date Occupation Industry Not on file Not on file Not on file Travel History Travel Start Travel End No recent travel history available. Last Filed Vital Signs Vital Sign Reading Time Taken Blood Pressure 178/77 05/19/2018 11:59 AM CDT Pulse 60 05/19/2018 1:19 PM CDT Temperature 36.1 C (96.9 F) 05/19/2018 11:59 AM CDT Respiratory Rate 15 05/19/2018 11:59 AM CDT Oxygen Saturation 99% 05/19/2018 11:59 AM CDT Inhaled Oxygen Concentration - - Weight - - Height - - Body Mass Index - - Plan of Treatment Not on file Procedures Procedure Name Priority Date/Time Associated Comments Diagnosis TRANSFUSION SERVICE 05/21/2018 6:00 REPORT - SCAN PM CDT RHYTHM STRIP - SCAN 05/21/2018 1:01 PM CDT PREPARE Routine 05/20/2018 11:54 Results for this LEUKO-REDUCED RBC PM CDT procedure are in the results section. TRANSFUSION SERVICE 05/19/2018 6:01 REPORT - SCAN PM CDT TSH/FREE T4 IF Routine 05/19/2018 12:11 Results for this INDICATED PM CDT procedure are in the results section. BASIC METABOLIC Routine 05/19/2018 12:11 Results for this PANEL (7) PM CDT procedure are in the results section. POCT-GLUCOSE METER Routine 05/19/2018 11:27 Results for this AM CDT procedure are in the results section. HEMOGLOBIN AND Routine 05/19/2018 11:27 Results for this HEMATOCRIT AM CDT procedure are in the results section. REPORT OF PROCEDURE 05/19/2018 10:36 - ENDOSCOPY URL AM CDT TISSUE EXAM AP Routine 05/19/2018 10:16 Results for this AM CDT procedure are in the results section. UPPER 05/19/2018 10:00 Gastric bleeding ENDOSCOPY,BIOPSY AM CDT POCT-GLUCOSE METER Routine 05/19/2018 6:12 Results for this AM CDT procedure are in the results section. HEMOGLOBIN AND Routine 05/19/2018 5:17 Results for this HEMATOCRIT AM CDT procedure are in the results section. TRANSFUSE Routine 05/19/2018 3:24 LEUKO-REDUCED RED AM CDT BLOOD CELLS ECG 12-LEAD Routine 05/18/2018 11:35 PM CDT Procedure Note - Interface, External Ris In - 05/18/2018 11:41 PM CDT Ventricular Rate 68 BPM Atrial Rate 68 BPM P-R Interval 224 ms QRS Duration 84 ms Q-T Interval 424 ms QTC Calculation(Bazett) 450 ms P Porter 45 degrees R Porter -12 degrees T Porter 54 degrees Sinus rhythm with 1st degree A-V block with frequent and consecutive Premature ventricular complexes Minimal voltage criteria for LVH, may be normal variant T wave abnormality, consider lateral ischemia Abnormal ECG When compared with ECG of 08-JUN-2005 12:56, Premature ventricular complexes are now Present ECG 12-LEAD Routine 05/18/2018 11:35 PM CDT POCT-GLUCOSE METER Routine 05/18/2018 11:08 PM CDT CBC W/PLT COUNT & AUTO Routine 05/18/2018 9:40 PM CDT Results for this DIFFERENTIAL procedure are in the results section. TYPE AND SCREEN, AUTOMATED Routine 05/18/2018 9:40 PM CDT B-TYPE NATRIURETIC FACTOR Routine 05/18/2018 9:40 PM CDT Results for this (BNP) procedure are in the results section. TROPONIN I Routine 05/18/2018 9:40 PM CDT PT/APTT Routine 05/18/2018 9:40 PM CDT HEPATIC FUNCTION PANEL Routine 05/18/2018 9:40 PM CDT CBC W/PLT COUNT & AUTO Routine 05/18/2018 9:40 PM CDT Results for this DIFFERENTIAL procedure are in the results section. BASIC METABOLIC PANEL (7) Routine 05/18/2018 9:40 PM CDT after 02/21/2018 Results TRANSFUSION SERVICE REPORT - SCAN (05/21/2018 6:00 PM CDT)Only the most recent of2 resultswithin the time period is included. Narrative Performed At RHYTHM STRIP - SCAN (05/21/2018 1:01 PM CDT) Narrative Performed At Prepare Leuko-Red RBC (05/20/2018 11:54 PM CDT) CROSSMATCH COMPATIBLE SAFETRACE TX Unit ABO B Pos SAFETRACE TX UNIT NUMBER [id number] SAFETRACE TX Status TRANSFUSED SAFETRACE TX Blood Bank Product RED BLOOD CELLS SAFETRACE TX PRODUCT CODE [id number] [place]AFET[place]ACE [place] Specimen Other Performing Organization Address City/State/[facility] Phone Number SAFETRACE TX TSH/Free T4 If Indicated (05/19/2018 12:11 PM CDT) TSH 1.13 0.35 - 4.94 uIU/mL [facility] Specimen Blood - Line, Venous Performing Organization Address City/State/Zipcode Phone Number [address] [address] [phone] CENTER Basic Metabolic Panel (05/19/2018 12:11 PM CDT)Only the most recent of2 resultswithin the time period is included. Sodium 141 136 - 145 meq/L [facility] Potassium 4.4 3.5 - 5.1 meq/L [facility] Chloride 117 (H) 98 - 107 meq/L [facility] CO2 16 (L) 22 - 29 meq/L [facility] BUN 22 (H) 7 - 21 mg/dL [facility] Creatinine 0.95 0.57 - 1.25 mg/dL [facility] Glucose 81 70 - 105 mg/dL [facility] Calcium 8.7 8.4 - 10.2 mg/dL [facility] EGFR 69Comment: ESTIMATED GFR IS mL/min/1.73 sq m [facility] NOT ACCURATE CREATININE [facility] CENTER CLEARANCE IN PREDICTING GLOMERULAR FILTRATION RATE. ESTIMATED GFR IS NOT APPLICABLE FOR DIALYSIS PATIENTS. Specimen Blood - Line, Venous Performing Organization Address City/[facility] Phone Number [address] [address] CENTER POC-Glucose meter (05/19/2018 11:27 AM CDT)Only the most recent of3 resultswithin the time period is included. POC-Glucose Meter 103Comment: TESTED AT 70 - 110 mg/dL [facility] [address] [place] [id number] Specimen Blood Performing Organization Address City/[facility] Phone Number [address] [address] CENTER Hemoglobin and hematocrit (05/19/2018 11:27 AM CDT)Only the most recent of2 resultswithin the time period is included. Hemoglobin 8.9 (L) 11.2 - 15.7 GM/DL [facility] Hematocrit 28.7 (L) 34.1 - 44.9 % [facility] Specimen Blood Performing Organization Address City/[facility] Phone Number [address] [address] CENTER REPORT OF PROCEDURE - ENDOSCOPY URL (05/19/2018 10:36 AM CDT) Narrative Performed At Tissue Exam (05/19/2018 10:16 AM CDT) Case Report Surgical Pathology Report Case: [id number] [facility] Authorizing Provider:Heather Leyva MDCollected: 05/19/[address] [place] [address] Ordering Location: [address] Received: 05/21/2018 0830 Service Pathologist: Jeet Soria MD Specimen:Biopsy, Gastric, raondom bx r/o H PYLORI DIAGNOSIS STOMACH, RANDOM, BIOPSY [facility] - NO DIAGNOSTIC ALTERATION [facility] - NEGATIVE FOR HELICOBACTER ON WARTHIN-STARRY STAIN Signing Pathologist Direct Phone Line: [phone] CPT Code(s) 13707, 66858 [facility] CLINICAL HISTORY Gastric bleeding, rule out [facility] H. pylori [facility] SPECIMEN SOURCE A. Random gastric biopsy [facility] GROSS DESCRIPTION The specimen is received in [facility] a formalin-filled container [facility] and labeled with the patient's information and labeled "random gastric biopsy" and consists of four fragments of dao tissue ranging from less than 0.1 to 0.3 cm, submitted entirely A1. CG/pl MICROSCOPIC DESCRIPTION Performed. [facility] Specimen Tissue - Biopsy, Gastric Performing Organization Address City/State/Zipcode Phone Number [facility] [address] [place] [address] [phone] CENTER Transfuse Leuko-Red RBC (05/19/2018 3:24 AM CDT)Only the most recent of2 resultswithin the time period is included.ECG 12 lead (05/18/2018 11:35 PM CDT) Narrative Performed At Ventricular Rate 68 BPM GE MUSE Atrial Rate 68 BPM P-R Interval 224 ms QRS Duration 84 ms Q-T Interval 424 ms QTC Calculation(Bazett) 450 ms P Porter 45 degrees R Porter -12 degrees T Porter 54 degrees Sinus rhythm with 1st degree A-V block with frequent and consecutive Premature ventricular complexes Minimal voltage criteria for LVH, may be normal variant T wave abnormality, consider lateral ischemia Abnormal ECG When compared with ECG of 08-JUN-2005 12:56, Premature ventricular complexes are now Present Confirmed by MD LORETTA, KRISTAN ([id number]) on 05/19/2018 10:29:26 AM Procedure Note Interface, External Ris In - 05/19/2018 10:29 AM CDT Ventricular Rate 68 BPM Atrial Rate 68 BPM P-R Interval 224 ms QRS Duration 84 ms Q-T Interval 424 ms QTC Calculation(Bazett) 450 ms P Porter 45 degrees R Porter -12 degrees T Porter 54 degrees Sinus rhythm with 1st degree A-V block with frequent and consecutive Premature ventricular complexes Minimal voltage criteria for LVH, may be normal variant T wave abnormality, consider lateral ischemia Abnormal ECG When compared with ECG of 08-JUN-2005 12:56, Premature ventricular complexes are now Present Confirmed by MD BURGOS PABLO ([id number]) on 05/19/2018 10:29:26 AM Performing Organization Address [facility] Phone Number GE MUSE Type and screen, automated (05/18/2018 9:40 PM CDT) ABO/RH AUTOMATED (BEAKER) B POSITIVE [facility] Ab Scrn NEGATIVE [facility] Specimen Blood Performing Organization Address [facility] Phone Number [address] [address] PT/aPTT (05/18/2018 9:40 PM CDT) Protime 16.5 (H) 11.7 - 14.7 seconds [facility] INR 1.3 <=5.9 [facility] PTT 30.0 22.5 - 36.0 seconds [facility] Specimen Blood Narrative Performed At [facility] RECOMMENDED COUMADIN/WARFARIN INR THERAPY RANGES STANDARD DOSE: 2.0 - 3.0 Includes: PROPHYLAXIS for venous thrombosis, systemic embolization; TREATMENT for venous thrombosis and/or pulmonary embolus. HIGH RISK: Target INR is 2.5-3.5 for patients with mechanical heart valves. Performing Organization Address [facility] Phone Number [address] [address] [phone] CENTER CBC with platelet count + automated diff (05/18/2018 9:40 PM CDT) WBC 7.0 3.5 - 10.5 K/L [facility] RBC 2.78 (L) 3.93 - 5.22 M/L [facility] Hemoglobin 7.4 (L) 11.2 - 15.7 GM/DL [facility] Hematocrit 24.0 (L) 34.1 - 44.9 % [facility] MCV 86.3 79.4 - 94.8 fL [facility] MCH 26.6 25.6 - 32.2 pg [facility] MCHC 30.8 (L) 32.2 - 35.5 GM/DL [facility] RDW 17.2 (H) 11.7 - 14.4 % [facility] Platelets 256 150 - 450 K/CU MM [facility] MPV 10.8 9.4 - 12.3 fL [facility] nRBC 1 (H) 0 - 0 /100 WBC [facility] % Neutros 67 % [facility] % Lymphs 20 % [facility] % Monos 11 % [facility] % Eos 2 % [facility] % Baso 0 % [facility] # Neutros 4.70 1.56 - 6.13 K/L [facility] # Lymphs 1.37 1.18 - 3.74 K/L [facility] # Monos 0.79 (H) 0.24 - 0.36 K/L [facility] # Eos 0.15 0.04 - 0.36 K/L [facility] # Baso 0.02 0.01 - 0.08 K/L [facility] Immature Granulocytes-Relative 0 0 - 1 % [facility] Specimen Blood Performing Organization Address [facility]/Zipcode Phone Number [address] [address] CENTER Troponin I (05/18/2018 9:40 PM CDT) Troponin I 0.03 0.00 - 0.03 ng/mL [facility] Specimen Blood Narrative Performed At [facility] Troponin I (TnI) levels must be interpreted in the context of the presenting symptoms and the clinical findings. Elevated TnI levels indicate myocardial damage, but are not specific for ischemic heart disease. Elevated TnI levels are seen in patients with other cardiac conditions (including myocarditis and congestive heart failure), and slight TnI elevations occur in patients with other conditions, including sepsis, renal failure, acidosis, acute neurological disease, and persistent tachyarrhythmia. Performing Organization Address City/[facility] Phone Number [address] [address] CENTER B-type Natriuretic Factor (BNP) (05/18/2018 9:40 PM CDT) BNP 432 (H) 0 - 100 pg/mL [facility] Specimen Blood Performing Organization Address City/[facility] Phone Number [address] [address] [place] Hepatic function panel (05/18/2018 9:40 PM CDT) Protein, Total 6.1 6.0 - 8.3 gm/dL [facility] Albumin 3.8 3.5 - 5.0 g/dL [facility] Total Bilirubin 0.6 0.2 - 1.2 mg/dL [facility] Bilirubin, Direct 0.3 0.1 - 0.5 mg/dL [facility] Alkaline Phosphatase 164 (H) 40 - 150 U/L [facility] AST 24 5 - 34 U/L [facility] ALT 18 6 - 55 U/L [facility] Specimen Blood Performing Organization Address City/State/Zipcode Phone Number [facility] [address] [place] [address] CENTER after 02/21/2018 Insurance Payer Benefit Plan / Group Subscriber ID Type Phone Address HUMANA - MEDICARE MGD HUMANA MEDICARE ADV xxxxxxxxx Maps Contracted CARE Advance Directives For more information, please contact:[facility] [place], [place] [phone] Code Status Date Activated Date Inactivated Comments Full Code 05/18/2018 6:41 PM 05/19/2018 5:31 PM This code status was determined by: Patient
--- OUTSIDE RECORDS SUMMARY | 2019-02-22 10:36 | XMS REPORT | Continuity of Care Document ---
:1940 Author Organization [facility] Care Team Providers Name Role Phone Eyal LEDEZMA, Tim Adler Unavailable Insurance Providers Payer name Policy type / Policy ID Covered green party ID Policy Thayer Coverage type AETNA - TRS ACTIVECARE SELECT - OPEN ACCESS AETNA - TRS ACTIVECARE SELECT - OPEN ACCESS Encounters Encounter Performer Location Date Office Visit Tim Birch MD [facility] Jul 06, 2015 Allergies, Adverse Reactions, [...]
--- OUTSIDE RECORDS SUMMARY | 2019-02-22 10:37 | XMS REPORT ---
:1940 [facility] Address [address] [place] [address] Care Team Providers Name Role Phone ALYCEJENNIFER DURHAMCynthia Garrison Unavailable Unavailable Problems This patient has no known problems. Allergies, Adverse Reactions, Alerts This patient has no known allergies or adverse reactions. Medications This patient has no known medications. Results Test Description Test Time Test Comments Text Results Atomic Results Result Comments TISSUE EXAM 2018-05-22 09:29:00 Surgical Pathology Report Case: [id number] Authorizing Provider: Heather Leyva MD Collected: 05/19/2018 1016 Ordering Location: [address] Received: 05/21/2018 0830 Service Pathologist: Jeet Soria MD Specimen: Biopsy, Gastric, raondom bx r/o H PYLORI STOMACH, RANDOM, BIOPSY- NO DIAGNOSTIC ALTERATION- NEGATIVE FOR HELICOBACTER ON WARTHIN-STARRY STAIN Signing Pathologist Direct Phone Line: [phone] signed by Jeet Soria MD on 05/22/2018 at 9:29 [id number], [id number] bleeding, rule out H. pyloriA. Random gastric biopsyThe specimen is received in a formalin-filled container and labeled with the patient's information and labeled "random gastric biopsy" and consists of four fragments of dao tissue ranging from less than 0.1 to 0.3 cm, submitted entirely A1. CG/pl Performed. TSH/FREE T4 IF INDICATED 2018-05-19 13:03:00 Test Item Value Reference Range Comments THYROID STIMULATING HORMONE (BEAKER) (test ajdh=126) 1.13 uIU/mL 0.35-4.94 BASIC METABOLIC [id number] 12:43:00 Test Item Value Reference Range Comments SODIUM (BEAKER) (test 141 meq/L 136-145 iepm=810) POTASSIUM (BEAKER) (test 4.4 meq/L 3.5-5.1 wawe=267) CHLORIDE (BEAKER) (test 117 meq/L 98-107 ryzq=425) CO2 (BEAKER) (test 16 meq/L 22-29 gfiu=635) BLOOD UREA NITROGEN 22 mg/dL 7-21 (BEAKER) (test vwjb=643) CREATININE (BEAKER) (test 0.95 mg/dL 0.57-1.25 urci=328) GLUCOSE RANDOM (BEAKER) 81 mg/dL 70-105 (test cnac=718) CALCIUM (BEAKER) (test 8.7 mg/dL 8.4-10.2 lmeg=474) EGFR (BEAKER) (test 69 mL/min/1.73 sq m ESTIMATED GFR IS NOT xzjw=5654) ACCURATE CREATININE CLEARANCE IN PREDICTING GLOMERULAR FILTRATION RATE. ESTIMATED GFR IS NOT APPLICABLE FOR DIALYSIS PATIENTS. HEMOGLOBIN AND [id number] 11:34:00 Test Item Value Reference Range Comments HEMOGLOBIN (BEAKER) (test efhv=300) 8.9 GM/DL 11.2-15.7 HEMATOCRIT (BEAKER) (test twdo=446) 28.7 % 34.1-44.9 POCT-GLUCOSE [id number] 11:29:00 Test Item Value Reference Range Comments POC-GLUCOSE METER (BEAKER) 103 mg/dL 70-110 TESTED AT [address] (test avta=5845) [facility] [address] POCT-GLUCOSE [id number] 06:18:00 Test Item Value Reference Range Comments POC-GLUCOSE METER (BEAKER) 81 mg/dL 70-110 TESTED AT [address] (test cbzd=9186) [place] [id number] HEMOGLOBIN AND [id number] 05:44:00 Test Item Value Reference Range Comments HEMOGLOBIN (BEAKER) (test fohn=686) 8.6 GM/DL 11.2-15.7 HEMATOCRIT (BEAKER) (test jsco=573) 27.4 % 34.1-44.9 POCT-GLUCOSE [id number] 23:11:00 Test Item Value Reference Range Comments POC-GLUCOSE METER (BEAKER) 91 mg/dL 70-110 TESTED AT [address] (test ubpv=6819) [facility] [address] TROPONIN [id number] 22:21:00 Test Item Value Reference Range Comments TROPONIN I (BEAKER) (test kgyu=197) 0.03 ng/mL 0.00-0.03 Troponin I (TnI) levels must be interpreted [...] failure, acidosis, acute neurological disease, and persistent tachyarrhythmia.B-TYPE NATRIURETIC FACTOR (BNP) 22:21:00 Test Item Value Reference Range Comments B-TYPE NATRIURETIC PEPTIDE (BEAKER) (test 432 pg/mL 0-100 wbhn=999) HEPATIC FUNCTION [id number] 22:15:00 Test Item Value Reference Range Comments TOTAL PROTEIN (BEAKER) (test kqsw=353) 6.1 gm/dL 6.0-8.3 ALBUMIN (BEAKER) (test itsy=5183) 3.8 g/dL 3.5-5.0 BILIRUBIN TOTAL (BEAKER) (test pzck=446) 0.6 mg/dL 0.2-1.2 BILIRUBIN DIRECT (BEAKER) (test povo=237) 0.3 mg/dL 0.1-0.5 ALKALINE PHOSPHATASE (BEAKER) (test ydmp=867) 164 U/L 40-150 AST (SGOT) (BEAKER) (test yzpe=479) 24 U/L 5-34 ALT (SGPT) (BEAKER) (test leqy=900) 18 U/L 6-55 BASIC METABOLIC [id number] 22:15:00 Test Item Value Reference Range Comments SODIUM (BEAKER) (test 141 meq/L 136-145 piva=639) POTASSIUM (BEAKER) (test 4.6 meq/L 3.5-5.1 bkkx=787) CHLORIDE (BEAKER) (test 117 meq/L 98-107 tbnu=666) CO2 (BEAKER) (test 14 meq/L 22-29 vjfm=957) BLOOD UREA NITROGEN 32 mg/dL 7-21 (BEAKER) (test tuwj=659) CREATININE (BEAKER) (test 1.14 mg/dL 0.57-1.25 hekk=223) GLUCOSE RANDOM (BEAKER) 90 mg/dL 70-105 (test hdgm=707) CALCIUM (BEAKER) (test 8.6 mg/dL 8.4-10.2 xzns=730) EGFR (BEAKER) (test 56 mL/min/1.73 sq m ESTIMATED GFR IS NOT hand=9476) ACCURATE CREATININE CLEARANCE IN PREDICTING GLOMERULAR FILTRATION RATE. ESTIMATED GFR IS NOT APPLICABLE FOR DIALYSIS PATIENTS. [id number] 22:06:00 Test Item Value Reference Range Comments PROTIME (BEAKER) (test eaqr=926) 16.5 seconds 11.7-14.7 INR (BEAKER) (test zgro=548) 1.3 <=5.9 PARTIAL THROMBOPLASTIN TIME (BEAKER) (test 30.0 seconds 22.5-36.0 ihhf=631) RECOMMENDED COUMADIN/WARFARIN INR THERAPY RANGESSTANDARD DOSE: 2.0 - 3.0 Includes: PROPHYLAXIS forvenous thrombosis, systemic embolization; TREATMENT for venous thrombosis and/or pulmonary embolus.HIGH RISK: Target INR is 2.5-3.5 for patients with mechanical heart valves.CBC W/PLT COUNT & AUTO [id number] 22:00:00 Test Item Value Reference Range Comments WHITE BLOOD CELL COUNT (BEAKER) (test gipr=690) 7.0 K/ L 3.5-10.5 RED BLOOD CELL COUNT (BEAKER) (test dewr=667) 2.78 M/ L 3.93-5.22 HEMOGLOBIN (BEAKER) (test jest=773) 7.4 GM/DL 11.2-15.7 HEMATOCRIT (BEAKER) (test kgwf=218) 24.0 % 34.1-44.9 MEAN CORPUSCULAR VOLUME (BEAKER) (test xded=841) 86.3 fL 79.4-94.8 MEAN CORPUSCULAR HEMOGLOBIN (BEAKER) (test 26.6 pg 25.6-32.2 rkel=489) MEAN CORPUSCULAR HEMOGLOBIN CONC (BEAKER) (test 30.8 GM/DL 32.2-35.5 xwoh=106) RED CELL DISTRIBUTION WIDTH (BEAKER) (test 17.2 % 11.7-14.4 bsjb=414) PLATELET COUNT (BEAKER) (test twke=919) 256 K/CU MM 150-450 MEAN PLATELET VOLUME (BEAKER) (test uqly=409) 10.8 fL 9.4-12.3 NUCLEATED RED BLOOD CELLS (BEAKER) (test 1 /100 WBC 0-0 jsap=471) NEUTROPHILS RELATIVE PERCENT (BEAKER) (test 67 % jtxb=618) LYMPHOCYTES RELATIVE PERCENT (BEAKER) (test 20 % pzqx=229) MONOCYTES RELATIVE PERCENT (BEAKER) (test 11 % zpqn=835) EOSINOPHILS RELATIVE PERCENT (BEAKER) (test 2 % crll=151) BASOPHILS RELATIVE PERCENT (BEAKER) (test 0 % xfos=979) NEUTROPHILS ABSOLUTE COUNT (BEAKER) (test 4.70 K/ L 1.56-6.13 yptn=476) LYMPHOCYTES ABSOLUTE COUNT (BEAKER) (test 1.37 K/ L 1.18-3.74 qrij=653) MONOCYTES ABSOLUTE COUNT (BEAKER) (test 0.79 K/ L 0.24-0.36 xkoo=374) EOSINOPHILS ABSOLUTE COUNT (BEAKER) (test 0.15 K/ L 0.04-0.36 eynw=374) BASOPHILS ABSOLUTE COUNT (BEAKER) (test 0.02 K/ L 0.01-0.08 sjij=379) IMMATURE GRANULOCYTES-RELATIVE PERCENT (BEAKER) 0 % 0-1 (test lnnm=2992)
[2019-02-22] MEDS ORDERED: PANTOPRAZOLE INJ 80 MG in NA CHLORIDE 0.9% 250 ML IV ONE (11:15)
[2019-02-22] MEDS ORDERED: PANTOPRAZOLE 40 MG INJ ONE (11:20)
[2019-02-22] MEDS ORDERED: NA CHLORIDE 0.9% 500 ML ONE (11:20)
[2019-02-22 11:48] LABS: Absolute Lymphocytes (CBC) 1.8 K/uL (0.7-4.9); Absolute Monocytes 0.5 K/uL (0.1-1.3); Absolute Neutrophil 7.2 K/uL (1.8-8.0); Basophils % 0.1 % (0-1.3); Lymphocytes % 18.7 % (15.3-44.8); MPV 9.9 fL (7.6-11.3); RBC Red Blood Cell Count 4.68 M/uL (3.86-4.86)
[2019-02-22] MEDS ORDERED: ONDANSETRON 4 MG/2 ML VIAL ONE (11:50)
[2019-02-22 11:59] LABS: Albumin 4.1 g/dL (3.4-5.0); Bilirubin Direct 0.1 mg/dL (0-0.2); Bilirubin Total 0.4 mg/dL (0.2-1.0); Protein, Total 8.1 g/dL (6.4-8.2)
[2019-02-22] MEDS ORDERED: NA CHLORIDE 0.9% 1,000 ML ONE (12:08)
--- NOTE | 2019-02-22 12:48 | EKG ---
Test Date: 2019-02-22 Test Time: 10:59:30 Professor Of Kinesiology: LUDWIN MEASUREMENT RESULTS: Intervals: Rate: 77 KS: 174 QRSD: 100 QT: 406 QTc: 459 [place]: P: 36 KS: 174 QRS: -25 T: 90 INTERPRETIVE STATEMENTS: Normal sinus rhythm Voltage criteria for left ventricular hypertrophy Nonspecific T wave abnormality Abnormal ECG Compared to ECG 05/18/2018 13:26:06 Left ventricular hypertrophy now present Atrial premature complex(es) no longer present Aberrant conduction of supraventricular beat(s) no longer present T-wave abnormality still present Electronically Signed On 02-22-19 12:47:25 CDT by Ant Slater
--- NOTE | 2019-02-22 13:04 | RAD REPORT ---
EXAM DESCRIPTION: CT - Abdomen Pelvis Wo Contrast - 02/22/2019 12:52 pm CLINICAL HISTORY: Abdominal pain vomiting COMPARISON: 2016 TECHNIQUE: Computed axial tomography of the abdomen and pelvis was obtained. IV and oral contrast we re not requested. All CT scans are performed using dose optimization technique as appropriate and may include automated exposure control or mA/KV adjustment according to patient size. FINDINGS: The evaluation of solid organs, vessels and bowel is limited secondary to the lack of con trast administration. A moderate hiatal hernia The liver, pancreas and adrenals appear grossly normal. Absent spleen Bilateral renal cysts. Largest extends off of the right kidney measuring 4 centimeters. Aorto bi femoral graft. Diverticula stem from the colon. Minimal stranding adjacent to the sigmoid. Wall of the transverse colon appears mildly thickened. 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
[2019-02-22] MEDS ORDERED: METRONIDAZOLE 500mg IVPB 500 MG/100 ML BAG IV ONE (13:56)
[2019-02-22] MEDS ORDERED: CEFTRIAXONE/SWI 1gm 1 GM/10 ML SYR ONE (13:56)
[2019-02-22 14:19] LABS: Anisocytosis 2+; Blood Morphology Comment NOTED (NOT SEEN); Platelet Estimate ADEQ; Poikilocytosis 2+
[2019-02-22 14:20] LABS: Burr Cells 2+
--- NOTE | 2019-02-22 14:20 | EDPHYS ---
Physician Documentation [facility] Name: Safia Christensen Age: 78 yrs Sex: Female : 1940 Arrival Date: 02/22/2019 Time: 10:36 Bed 2 Private MD: Sue Jose H ED Physician Martín Donohue HPI: 02/22 11:33 This 78 yrs old Black Female presents to ER via Wheelchair with complaints of vomiting, rn black stool, weakness. 11:33 The patient presents to the emergency department with weakness of the entire body, rn generalized weakness. Onset: The symptoms/episode began/occurred 1 week(s) ago. Severity of symptoms: At their worst the symptoms were moderate in the emergency department the symptoms are unchanged. Current symptoms:. The patient has not experienced similar symptoms in the past. Reports 1 week of nausea/vomiting/dark stool/generalized weakness, no hx of ulcers/GERD/bleeding, sent by Dr. Jose for concern of GI bleed. . Historical: - Allergies: 10:40 No Known Allergies; aj1 - Home Meds: 10:40 aspirin 325 mg Oral tab 1 tab once daily [Active]; baclofen 10 mg Oral tab nightly aj1 [Active]; Bystolic 10 mg Oral tab 1 tab twice a day [Active]; citalopram 10 mg tab 0.5 tab once daily [Active]; gabapentin 300 mg Oral cap 2 caps twice daily [Active]; hydralazine 25 mg Oral tab twice a day [Active]; memantine 10 mg Oral tab 1 tab 2 times per day [Active]; rosuvastatin Oral 20 mg once daily [Active]; - PMHx: 10:40 Arthritis; High Cholesterol; Hypertension; aj1 - PSHx: 10:40 Hysterectomy; aj1 - Immunization history:: Flu vaccine is not up to date. - Social history:: Smoking status: Patient uses tobacco products, denies chronic smoking, but will smoke occasionally. - Ebola Screening: : Patient denies travel to an Ebola-affected area in the 21 days before illness onset. - Family history:: not pertinent. - Hospitalizations: : No recent hospitalization is reported. ROS: 11:33 Constitutional: Negative for fever, chills, and weight loss, Eyes: Negative for injury, rn pain, redness, and discharge, Neck: Negative for injury, pain, and swelling, Cardiovascular: Negative for chest pain, palpitations, and edema, Respiratory: Negative for shortness of breath, cough, wheezing, and pleuritic chest pain, Abdomen/GI: + nausea/vomiting, no abdominal pain MS/Extremity: Negative for injury and deformity, Skin: Negative for injury, rash, and discoloration, Neuro: + generalized weakness Exam: 11:03 ECG was reviewed by the Attending Physician. rn 11:33 Constitutional: This is a well developed, well nourished patient who is awake, alert, rn very weak, unable to walk to bed from wheelchair without assistance Head/Face: Normocephalic, atraumatic. Eyes: Slightly pale conjunctivae ENT: dry MM Cardiovascular: Regular rate and rhythm, No pulse deficits. Respiratory: Lungs have equal breath sounds bilaterally, clear to auscultation, No increased work of breathing, no retractions or nasal flaring. Abdomen/GI: soft, non-tender MS/ Extremity: Pulses equal, no cyanosis. Neurovascular intact. Full, normal range of motion. Equal circumference. Neuro: Awake and alert, GCS 15, oriented to person, place, time, and situation. Cranial nerves II-XII grossly intact. Motor strength 4/5 in all extremities. Sensory grossly intact. Vital Signs: 10:40 BP 71 / 41; Pulse 88; Resp 20; Temp 97.5; Pulse Ox 96% on R/A; Weight 65.32 kg (R); aj1 Height 5 ft. 2 in. (157.48 cm) (R); Pain 0/10; 11:43 BP 77 / 54; Pulse 82; Resp 15; Pulse Ox 98% on R/A; aj1 12:00 BP 76 / 48; Pulse 89; Resp 18; Pulse Ox 100% on R/A; aj1 12:22 BP 84 / 45; Pulse 89; Resp 16; Pulse Ox 95% on R/A; aj1 12:45 BP 85 / 38; Pulse 88; Resp 18; Pulse Ox 97% on R/A; aj1 13:00 BP 78 / 39; Pulse 86; Resp 20; Pulse Ox 94% on R/A; aj1 13:15 BP 92 / 42; Pulse 82; Resp 20; Pulse Ox 94% on R/A; aj1 13:30 BP 81 / 45; Pulse 92; Resp 12; Pulse Ox 99% on R/A; aj1 13:45 BP 104 / 48; Pulse 90; Resp 20; Pulse Ox 97% on R/A; aj1 13:57 BP 110 / 53; Pulse 88; Resp 13; Pulse Ox 97% on R/A; aj1 14:15 BP 109 / 49; Pulse 92; Resp 14; Pulse Ox 96% on R/A; aj1 14:30 BP 125 / 69; Pulse 92; Resp 20; Pulse Ox 95% on R/A; aj1 14:45 BP 100 / 48; Pulse 95; Resp 20; Pulse Ox 96% on R/A; aj1 15:00 BP 112 / 62; Pulse 97; Resp 18; Pulse Ox 96% on R/A; aj1 15:15 BP 103 / 47; Pulse 84; Resp 20; Pulse Ox 97% on R/A; aj1 15:30 BP 100 / 51; Pulse 97; Resp 18; Pulse Ox 97% on R/A; aj1 16:02 BP 121 / 48; Pulse 100; Resp 18; Pulse Ox 95% on R/A; aj1 16:15 BP 124 / 80; Pulse 102; Resp 18; Pulse Ox 95% on R/A; aj1 16:30 BP 121 / 55; Pulse 103; Resp 18; Pulse Ox 95% on R/A; aj1 16:45 BP 117 / 65; Pulse 103; Resp 20; Pulse Ox 95% on R/A; aj1 17:00 BP 108 / 75; Pulse 102; Resp 20; Pulse Ox 96% on R/A; aj1 17:15 BP 112 / 67; Pulse 103; Resp 20; Pulse Ox 95% on R/A; aj1 10:40 Body Mass Index 26.34 (65.32 kg, 157.48 cm) aj MDM: 10:39 Patient medically screened. rn 13:11 Data reviewed: vital signs, nurses notes, lab test result(s), radiologic studies, CT rn scan, and as a result, I will admit patient. ED course: Patient almost done with fluid challenge, still hypotensive, spoke with patient and verbally consented to central line for pressor support. Stool black and hemoccult +.. 13:51 ED course: About to place central line, BP improved, will give another 500cc bolus and rn reassess. Current BP 114/58. 14:18 Counseling: I had a detailed discussion with the patient and/or guardian regarding: the rn historical points, exam findings, and any diagnostic results supporting the discharge/admit diagnosis, lab results, radiology results, the need for further work-up and treatment in the hospital. Response to treatment: the patient's symptoms have markedly improved after treatment, and as a result, I will admit patient. Admission orders: after a detailed discussion of the patient's condition and case, the admit orders are written by me. ED course: Admitted to Dr. Anglin for acute renal failure, dehydration, and upper GI bleed. . 02/22 10:44 Order name: Basic Metabolic Panel; Complete Time: 12:13 rn 02/22 10:44 Order name: CBC with Diff; Complete Time: 15:13 rn 02/22 10:44 Order name: Hepatic Function; Complete Time: 12:13 rn 02/22 10:44 Order name: Lipase; Complete Time: 12:13 rn 02/22 10:44 Order name: Type And Screen; Complete Time: 12:57 rn 02/22 14:14 Order name: Manual Differential; Complete Time: 15:13 EDMS 02/22 12:37 Order name: Abdomen ; Complete Time: 13:10 EDMS 02/22 10:44 Order name: IV Saline Lock; Complete Time: 11:35 rn 02/22 10:44 Order name: Labs collected and sent; Complete Time: 11:35 rn 02/22 10:44 Order name: EKG; Complete Time: 10:45 rn 02/22 10:44 Order name: EKG - Nurse/Tech; Complete Time: 11:07 rn EC:03 Rate is 77 beats/min. Rhythm is regular. QRS [place] is Normal. [place] interval is normal. QRS rn interval is normal. T waves are Flattened in leads V5, V6. No ST changes noted. Clinical impression: NSR w/ Non-specific ST/T Changes. Interpreted by me. Administered Medications: 11:00 Drug: NS 0.9% 500 ml Route: IV; Rate: bolus; Site: right forearm; aj1 12:00 Follow up: IV Status: Completed infusion; IV Intake: 500ml aj1 11:36 Drug: ProTONIX 40 mg Route: IVP; Site: right forearm; aj1 12:00 Follow up: Response: No adverse reaction aj1 11:36 Drug: ProTONIX 8 mg/hr Route: IV; Rate: 25 ml/hr; Site: right forearm; aj1 11:43 Drug: Zofran 4 mg Route: IVP; Site: right forearm; aj1 12:15 Follow up: Response: No adverse reaction aj1 12:00 Drug: NS 0.9% 1000 ml Route: IV; Rate: 1000 ml; Site: right forearm; aj1 17:42 Follow up: IV Status: Infusion continued upon admission aj1 13:58 Drug: NS 0.9% 500 ml Route: IV; Rate: bolus; Site: right forearm; aj1 15:00 Follow up: IV Status: Completed infusion; IV Intake: 500ml aj1 15:30 Drug: Rocephin - (cefTRIAXone) 1 grams {Note: Given SIVP per hospital policy.} Route: aj1 IVPB; Infused Over: 30 mins; Site: left jugular; 15:35 Follow up: IV Status: Completed infusion; IV Intake: 10ml aj1 15:45 Drug: Flagyl 500 mg Volume: 100 ml; Route: IVPB; Rate: 200 ml/hr; Infused Over: 30 aj1 mins; Site: left jugular; 16:45 Follow up: IV Status: Completed infusion; IV Intake: 100ml aj Disposition: 02/22/19 14:20 Hospitalization ordered by Melly Anglin for Inpatient Admission. Preliminary diagnosis are Hypotension, Dehydration, Acute kidney failure, Diverticulitis of large intestine without perforation or abscess with bleeding. - Bed requested for Intensive Care Unit. - Status is Inpatient Admission. aj1 - Condition is Fair. - Problem is new. - Symptoms have improved. UTI on Admission? No Critical care time excluding procedures: 14:18 Critical care time: Bedside Care: 25 minutes, Consultation: 5 minutes, Family rn Intervention: 5 minutes. 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 EDAR EDMS 15:10 14:20 Hospitalization Ordered by Melly Anglin MD for Inpatient Admission. Preliminary dw diagnosis is Hypotension; Dehydration; Acute kidney failure; Diverticulitis of large intestine without perforation or abscess with bleeding. Bed requested for Telemetry/MedSurg (Inpatient). Status is Inpatient Admission. Condition is Fair. Problem is new. Symptoms have improved. UTI on Admission? No. rn 15:39 15:10 02/22/2019 14:20 Hospitalization Ordered by Melly Anglin MD for Inpatient dw Admission. Preliminary diagnosis is Hypotension; Dehydration; Acute kidney failure; Diverticulitis of large intestine without perforation or abscess with bleeding. Bed requested for Intensive Care Unit. Status is Inpatient Admission. Condition is Fair. Problem is new. Symptoms have improved. UTI on Admission? No. dw 17:44 15:39 02/22/2019 14:20 Hospitalization Ordered by Melly Anglin MD for Inpatient aj1 Admission. Preliminary diagnosis is Hypotension; Dehydration; Acute kidney failure; Diverticulitis of large intestine without perforation or abscess with bleeding. Bed requested for Intensive Care Unit. Status is Inpatient Admission. Condition is Fair. Problem is new. Symptoms have improved. UTI on Admission? No. dw
--- NOTE | 2019-02-22 14:20 | ER ---
Nurse's Notes [facility] Name: Safia Christensen Age: 78 yrs Sex: Female : 1940 Arrival Date: 02/22/2019 Time: 10:36 Bed 2 Private MD: Sue Jose H Diagnosis: Hypotension;Dehydration;Acute kidney failure;Diverticulitis of large intestine without perforation or abscess with bleeding Presentation: 02/22 10:40 Presenting complaint: Patient states: She has been having generalized weakness, and aj1 dark black stools for the past week. Denies pain at this time. Transition of care: patient was not received from another setting of care. Onset of symptoms was February 15, 2019. Risk Assessment: Do you want to hurt yourself or someone else? Patient reports no desire to harm self or others. Initial Sepsis Screen: Does the patient meet any 2 criteria? RR > 20 per min. Systolic BP < 90 mmHg. Does the patient have a suspected source of infection? No. Patient's initial sepsis screen is negative. Care prior to arrival: None. 10:40 Method Of Arrival: Wheelchair aj1 10:40 Acuity: DARSHAN 2 aj1 Triage Assessment: 10:40 General: Appears uncomfortable, ill, Behavior is calm, cooperative, appropriate for aj1 age. Pain: Denies pain. Historical: - Allergies: 10:40 No Known Allergies; aj1 - Home Meds: 10:40 aspirin 325 mg Oral tab 1 tab once daily [Active]; baclofen 10 mg Oral tab nightly aj1 [Active]; Bystolic 10 mg Oral tab 1 tab twice a day [Active]; citalopram 10 mg tab 0.5 tab once daily [Active]; gabapentin 300 mg Oral cap 2 caps twice daily [Active]; hydralazine 25 mg Oral tab twice a day [Active]; memantine 10 mg Oral tab 1 tab 2 times per day [Active]; rosuvastatin Oral 20 mg once daily [Active]; - PMHx: 10:40 Arthritis; High Cholesterol; Hypertension; aj1 - PSHx: 10:40 Hysterectomy; aj1 - Immunization history:: Flu vaccine is not up to date. - Social history:: Smoking status: Patient uses tobacco products, denies chronic smoking, but will smoke occasionally. - Ebola Screening: : Patient denies travel to an Ebola-affected area in the 21 days before illness onset. - Family history:: not pertinent. - Hospitalizations: : No recent hospitalization is reported. Screenin:40 Abuse screen: Denies threats or abuse. Denies injuries from another. Nutritional aj1 screening: No deficits noted. Tuberculosis screening: No symptoms or risk factors identified. 17:39 Fall Risk No fall in past 12 months (0 pts). Secondary diagnosis (15 points) dementia, aj1 IV access (20 points). Ambulatory Aid- None/Bed Rest/Nurse Assist (0 pts). Gait- Weak (10 pts.). Mental Status- Oriented to own ability (0 pts). Total Gonzalez Fall Scale indicates High Risk Score (45 or more points). Fall prevention measures have been instituted. Frequent Obs/Assessments Occuring. Assessment: 10:40 General: Appears in no apparent distress. uncomfortable, ill, Behavior is calm, aj1 cooperative, appropriate for age, Reports generalized weakness and not feeling well for the past week. Pain: Denies pain. Neuro: Level of Consciousness is awake, alert, obeys commands, Oriented to person, place, time, situation, Operator Bearer Systems are weak bilaterally Moves all extremities. Speech slow. Neuro: Facial symmetry appears normal. Cardiovascular: Denies chest pain, Heart tones S1 S2 present Patient's skin is warm and dry. Rhythm is sinus rhythm. Respiratory: Airway is patent Respiratory effort is even, unlabored, Respiratory pattern is regular, symmetrical. GI: Abdomen is round non-distended, Bowel sounds present X 4 quads. Abd is soft X 4 quads Abdomen is tender to palpation X 4 quads. Reports diarrhea, Patient currently denies nausea, vomiting. : No signs and/or symptoms were reported regarding the genitourinary system. EENT: No signs and/or symptoms were reported regarding the EENT system. Derm: Skin is pale. Musculoskeletal: No signs and/or symptoms reported regarding the musculoskeletal system. Circulation, motion, and sensation intact. 11:40 Reassessment: Patient appears in no apparent distress at this time. No changes from aj1 previously documented assessment. Patient and/or family updated on plan of care and expected duration. Pain level reassessed. Patient is alert, oriented x 3, equal unlabored respirations, skin warm/dry/pink. 12:26 Reassessment: Patient and/or family updated on plan of care and expected duration. Pain aj1 level reassessed. General: Appears in no apparent distress. uncomfortable, ill, Behavior is calm, cooperative, appropriate for age. Pain: Denies pain. Neuro: Level of Consciousness is awake, alert, obeys commands, Oriented to person, place, time, situation, Moves all extremities. Speech slow. Cardiovascular: Patient's skin is warm and dry. Rhythm is sinus rhythm. Respiratory: Airway is patent Respiratory effort is even, unlabored, Respiratory pattern is regular, symmetrical. GI: Abdomen is round non-distended. Derm: Skin is pale. Musculoskeletal: Circulation, motion, and sensation intact. 12:45 Reassessment: Patient transported to CT via stretcher. aj1 13:00 Reassessment: Patient returned to ER bed 2. Notified Dr. Donohue of patient's current aj1 vital signs. Order received to continue fluid bolus and monitor improvement in blood pressure. 13:30 Reassessment: Order received to obtain consent for central line placement. Dr. Donohue at aj1 bedside to explain procedure to patient. 13:30 Reassessment: Patient and/or family updated on plan of care and expected duration. Pain aj1 level reassessed. General: Appears in no apparent distress. uncomfortable, ill, Behavior is calm, cooperative, appropriate for age. Pain: Denies pain. Neuro: Level of Consciousness is awake, alert, obeys commands, Oriented to person, place, time, situation, Operator Bearer Systems are weak bilaterally Moves all extremities. Speech is normal, Facial symmetry appears normal. Cardiovascular: Patient's skin is warm and dry. Rhythm is sinus rhythm. Respiratory: Airway is patent Respiratory effort is even, unlabored, Respiratory pattern is regular, symmetrical. GI: Abdomen is round distended, Bowel sounds present X 4 quads. Abd is soft X 4 quads Abdomen is tender to palpation X 4 quads. Derm: Skin is pale. 13:35 Reassessment: Consent obtained for central line placement and placed on chart. aj1 13:45 Reassessment: Dr. Donohue at bedside, patient's blood pressure has improved at this time. aj1 Order received that we will hold central line placement, give patient an additional 500cc NS bolus and continue to monitor blood pressure. 14:17 Reassessment: Patient appears in no apparent distress at this time. No changes from aj1 previously documented assessment. Patient and/or family updated on plan of care and expected duration. Pain level reassessed. Patient is alert, oriented x 3, equal unlabored respirations, skin warm/dry/pink. 15:15 Reassessment: Patient appears in no apparent distress at this time. No changes from aj1 previously documented assessment. Patient and/or family updated on plan of care and expected duration. Pain level reassessed. Patient is alert, oriented x 3, equal unlabored respirations, skin warm/dry/pink. 16:01 Reassessment: Patient and/or family updated on plan of care and expected duration. Pain aj1 level reassessed. General: Appears in no apparent distress. comfortable, Behavior is calm, cooperative, appropriate for age. Pain: Denies pain. Neuro: Level of Consciousness is awake, alert, obeys commands, Oriented to person, place, time, situation, Speech is normal, Facial symmetry appears normal. Cardiovascular: Patient's skin is warm and dry. Respiratory: Airway is patent Respiratory effort is even, unlabored, Respiratory pattern is regular, symmetrical. GI: Abdomen is non-distended. Derm: Skin is pink, warm \T\ dry. normal. Musculoskeletal: Circulation, motion, and sensation intact. 17:15 Reassessment: Patient appears in no apparent distress at this time. No changes from aj1 previously documented assessment. Patient and/or family updated on plan of care and expected duration. Pain level reassessed. Patient is alert, oriented x 3, equal unlabored respirations, skin warm/dry/pink. Vital Signs: 10:40 BP 71 / 41; Pulse 88; Resp 20; Temp 97.5; Pulse Ox 96% on R/A; Weight 65.32 kg (R); aj1 Height 5 ft. 2 in. (157.48 cm) (R); Pain 0/10; 11:43 BP 77 / 54; Pulse 82; Resp 15; Pulse Ox 98% on R/A; aj1 12:00 BP 76 / 48; Pulse 89; Resp 18; Pulse Ox 100% on R/A; aj1 12:22 BP 84 / 45; Pulse 89; Resp 16; Pulse Ox 95% on R/A; aj1 12:45 BP 85 / 38; Pulse 88; Resp 18; Pulse Ox 97% on R/A; aj1 13:00 BP 78 / 39; Pulse 86; Resp 20; Pulse Ox 94% on R/A; aj1 13:15 BP 92 / 42; Pulse 82; Resp 20; Pulse Ox 94% on R/A; aj1 13:30 BP 81 / 45; Pulse 92; Resp 12; Pulse Ox 99% on R/A; aj1 13:45 BP 104 / 48; Pulse 90; Resp 20; Pulse Ox 97% on R/A; aj1 13:57 BP 110 / 53; Pulse 88; Resp 13; Pulse Ox 97% on R/A; aj1 14:15 BP 109 / 49; Pulse 92; Resp 14; Pulse Ox 96% on R/A; aj1 14:30 BP 125 / 69; Pulse 92; Resp 20; Pulse Ox 95% on R/A; aj1 14:45 BP 100 / 48; Pulse 95; Resp 20; Pulse Ox 96% on R/A; aj1 15:00 BP 112 / 62; Pulse 97; Resp 18; Pulse Ox 96% on R/A; aj1 15:15 BP 103 / 47; Pulse 84; Resp 20; Pulse Ox 97% on R/A; aj1 15:30 BP 100 / 51; Pulse 97; Resp 18; Pulse Ox 97% on R/A; aj1 16:02 BP 121 / 48; Pulse 100; Resp 18; Pulse Ox 95% on R/A; aj1 16:15 BP 124 / 80; Pulse 102; Resp 18; Pulse Ox 95% on R/A; aj1 16:30 BP 121 / 55; Pulse 103; Resp 18; Pulse Ox 95% on R/A; aj1 16:45 BP 117 / 65; Pulse 103; Resp 20; Pulse Ox 95% on R/A; aj1 17:00 BP 108 / 75; Pulse 102; Resp 20; Pulse Ox 96% on R/A; aj1 17:15 BP 112 / 67; Pulse 103; Resp 20; Pulse Ox 95% on R/A; aj1 10:40 Body Mass Index 26.34 (65.32 kg, 157.48 cm) aj1 ED Course: 10:36 Patient arrived in ED. mr 10:37 Sue Jose DO is Private Physician. mr 10:39 Martín Donohue MD is Attending Physician. rn 10:40 No provider procedures requiring assistance completed. aj1 10:40 Arm band placed on. aj1 10:40 Patient has correct armband on for positive identification. Bed in low position. Call aj1 light in reach. Side rails up X 1. edge worker on. Pulse ox on. NIBP on. 10:41 Alma Delia Birch, RN is Primary Nurse. aj1 11:08 EKG done, by echo technician. reviewed by Martín Donohue MD. at1 11:16 Triage completed. aj1 11:35 Initial lab(s) drawn, by me, sent to lab. T\T\S collected, blood band applied to patient. jb1 Inserted saline lock: 22 gauge in right forearm, using aseptic technique. Blood collected. 12:52 Abdomen In Process Unspecified. EDMS 14:19 Melly Anglin MD is Hospitalizing Provider. rn 15:00 Inserted saline lock: 20 gauge in left EJ, using aseptic technique. ,using aseptic aj1 technique. by FABIANO Melo. 17:38 Report given to TAM Gonzalez in ICU. aj1 17:40 Patient admitted, IV remains in place. aj1 Administered Medications: 11:00 Drug: NS 0.9% 500 ml Route: IV; Rate: bolus; Site: right forearm; aj1 12:00 Follow up: IV Status: Completed infusion; IV Intake: 500ml aj1 11:36 Drug: ProTONIX 40 mg Route: IVP; Site: right forearm; aj1 12:00 Follow up: Response: No adverse reaction aj1 11:36 Drug: ProTONIX 8 mg/hr Route: IV; Rate: 25 ml/hr; Site: right forearm; aj1 11:43 Drug: Zofran 4 mg Route: IVP; Site: right forearm; aj1 12:15 Follow up: Response: No adverse reaction aj1 12:00 Drug: NS 0.9% 1000 ml Route: IV; Rate: 1000 ml; Site: right forearm; aj1 17:42 Follow up: IV Status: Infusion continued upon admission aj1 13:58 Drug: NS 0.9% 500 ml Route: IV; Rate: bolus; Site: right forearm; aj1 15:00 Follow up: IV Status: Completed infusion; IV Intake: 500ml aj1 15:30 Drug: Rocephin - (cefTRIAXone) 1 grams {Note: Given SIVP per hospital policy.} Route: aj1 IVPB; Infused Over: 30 mins; Site: left jugular; 15:35 Follow up: IV Status: Completed infusion; IV Intake: 10ml aj1 15:45 Drug: Flagyl 500 mg Volume: 100 ml; Route: IVPB; Rate: 200 ml/hr; Infused Over: 30 aj1 mins; Site: left jugular; 16:45 Follow up: IV Status: Completed infusion; IV Intake: 100ml aj1 Intake: 12:00 IV: 500ml; Total: 500ml. aj1 15:00 IV: 500ml; Total: 1000ml. aj1 15:35 IV: 10ml; Total: 1010ml. aj1 16:45 IV: 100ml; Total: 1110ml. aj1 Outcome: 14:20 Decision to Hospitalize by Provider. rn 17:41 Admitted to ICU accompanied by nurse, accompanied by tech, via stretcher, with chart. aj1 17:41 critical 17:41 Discharge instructions given to patient, family, Instructed on the need for admit, Demonstrated understanding of instructions. 17:44 Patient left the ED. aj1 Signatures: Dispatcher [employer] EDStefan Unger jb1 Alma Delia Birch, RN RN aj1 Arminda Brambila Roman, MD MD rn Gonzales, Amanda, asset protection associate EKG Tat1 Corrections: (The following items were deleted from the chart) 15:36 14:30 BP 125 / 69; Pulse 9bpm; Resp 20bpm; Pulse Ox 95% RA; aj1 aj1 17:43 13:45 Flagyl 500 mg 100 ml IVPB at 200 ml/hr in left jugular over 30 mins 100 ml aj1 aj1
--- NOTE | 2019-02-22 17:31 | P.HP ---
Certification for Inpatient Patient admitted to: Inpatient With expected LOS: >2 Midnights Practitioner: I am a practitioner with admitting privileges, knowledge of patient current condition, hospital course, and medical plan of care. Services: Services provided to patient in accordance with Admission requirements found in Title 42 Section 412.3 of the Code of Federal Regulations Patient History Date of Service: 02/22/19 Reason for admission: Vomiting, Melena History of Present Illness: This is a 78 year old female with a PMH of HTN, depression admitted for melena and 1 week long vomiting along with JASON. Patient states that she started with vomiting 1 week ago, has been pretty persistent. It was non billious and non bloody but the more concerning thing for her was that she was having dark, bloody stools for the past week. She is complaing of feeling weak and lethargic. In the ED, she was hypotensive to SBP of 70, which was responsive to 2.5 L IVF bolus. Her H&H were stable at 13.7/42.0, her creatinine was 9.11 but otherwise was unremarkable. Her lipase was elevated to 742 and alk phos was elevated to 241. CT scan of her abdomen/pelvis showed a moderate hiatal hernia, mild colitis of transverse colon along with diverticulitis and a thoracic aneurysm. At the time of my exam, patient looked weak/ill, was not really in acute distress, SBP had improved though was still around 100. She was also tachycardic. She will be admitted to the ICU for further monitoring/evaluation and treatment. Allergies codeine Allergy (Verified 07/26/16 14:37) unknown iodine Allergy (Verified 07/26/16 14:37) unknown Penicillins Allergy (Verified 07/26/16 14:37) unknown Iodine-Iodine Containing Allergy (Uncoded 07/26/16 14:37) Unknown IODINE; IODINE CONTAINING Allergy (Uncoded 07/26/16 14:37) Unknown No Known Allergy (Uncoded 05/18/18 16:49) Unknown No Known Aller Allergy (Uncoded 08/02/16 20:00) Unknown Home medications list reviewed: Yes Home Medications: Aspirin Tab [Madi Aspirin*] 325 mg PO DAILY #30 tab 06/15/16 Baclofen [Lioresal*] 10 mg PO DAILY AT SUPPER #30 tab 06/15/16 Citalopram [Celexa*] 5 mg PO DAILY #30 tablet 06/15/16 Memantine HCl [Namenda*] 5 mg PO BID #60 tablet 06/15/16 Rosuvastatin [Crestor*] 20 mg PO BEDTIME #30 tab 06/15/16 Hydralazine [Apresoline*] 25 mg PO BID 07/26/16 Nebivolol HCl [Bystolic*] 10 mg PO BID 07/26/16 Gabapentin [Neurontin*] 300 mg PO BID #90 cap 07/28/16 - Past Medical/Surgical History Diabetic: No -: HTN -: Hyperlipidemia -: GERD with hiatal hernia -: History of esophageal stenosis -: Depression with anxiety -: Anemia -: History of left renal cyst -: Chronic kidney disease -: Severe lumbar spinal stenosis -: 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 She has a large extended family. - Family History Father -: Seizures Mother -: Heart disease, Hypertension, Cancer - Social History Alcohol use: No CD- Drugs: No Caffeine use: No Review of Systems 10-point ROS is otherwise unremarkable Physical Examination - Physical Exam General: Alert, In no apparent distress, Oriented x3, Other (ill appearing) HEENT: Other (dry mucous membranes) Neck: Supple, JVD not distended Respiratory: Clear to auscultation bilaterally, Normal air movement Cardiovascular: No edema, Irregular heart rate/rhythm Gastrointestinal: Normal bowel sounds, No tenderness Integumentary: No rashes Neurological: Normal speech, Normal tone Lymphatics: No axilla or inguinal lymphadenopathy - Studies Laboratory Data (last 24 hrs) 02/22/19 11:20: WBC 9.4, Hgb 13.7, Hct 42.0, Plt Count 280 02/22/19 11:20: Sodium 135 L, Potassium 5.0, BUN 100 H, Creatinine 9.11 H*, Glucose 131 H, Total Bilirubin 0.4, AST 17, ALT 16, Alkaline Phosphatase 241 H, Lipase 742 H Assessment and Plan - Problems (Diagnosis) (1) Acute renal failure Onset Date: 02/22/19 Current Visit: Yes Status: Acute Qualifiers: Acute renal failure type: unspecified Qualified Code(s): N17.9 - Acute kidney failure, unspecified (2) Hypotension Current Visit: Yes Status: Acute Qualifiers: Hypotension type: hypotension due to hypovolemia Qualified Code(s): I95.89 - Other hypotension; E86.1 - Hypovolemia (3) Diverticulitis Current Visit: Yes Status: Acute (4) GIB (gastrointestinal bleeding) Current Visit: Yes Status: Acute Qualifiers: GI bleed type/associated pathology: melena Qualified Code(s): K92.1 - Melena (5) Dehydration Onset Date: 07/27/16 Current Visit: No Status: Acute (6) Carotid artery disease Current Visit: Yes Status: Chronic Qualifiers: Carotid artery disease type: unspecified Laterality: unspecified laterality Qualified Code(s): I77.9 - Disorder of arteries and arterioles, unspecified (7) Vomiting Current Visit: No Status: Acute (8) Depression with anxiety Onset Date: 07/27/16 Current Visit: No Status: Chronic (9) Hiatal hernia with GERD Onset Date: 07/27/16 Current Visit: No Status: Chronic (10) Hypertension Onset Date: 07/27/16 Current Visit: No Status: Chronic Qualifiers: Hypertension type: essential hypertension Qualified Code(s): I10 - Essential (primary) hypertension (11) Weakness Onset Date: 06/06/16 Current Visit: No Status: Acute - Plan Patient Problems: Acute renal failure (Acute 02/22/19) Dehydration (Acute 06/06/16) E86.0 Patient s/p 2/5 L bolus in ER. Recheck labs at 7 pm Nephrology consulted. Avoid nephrotoxic drugs. Hypotension (Acute) I95.9 Likely secondary to hypovolemia from persistent vomiting. BP improved. Hold BP medications at this time. Monitor closely in the ICU If patient gets hypotensive again, may require pressors. Diverticulitis (Acute) K57.92 Continue IV antibiotics at this time. Keep NPO GIB (gastrointestinal bleeding) (Acute) K92.2 H&H stable at this time. Continue to [facility] H&H GI consult. IV protonix Vomiting (Acute) R11.10 No episodes since here zofran for nausea Depression with anxiety (Chronic 07/27/16) F41.8 Will restart home medications Stable at this time. Denies SI or HI Hiatal hernia with GERD (Chronic 08/31/16) K21.9, K44.9 Protinix as above Hypertension (Chronic 07/27/16) I10 Hold BP meds at this time 2/2 hypotension. Will restart as tolerated. Carotid artery disease (Chronic) I77.9 Stable DVT Prophylaxis: Hold d/t GIB GI Prophylaxis: IV protonix Diet: NPO Disposition: Admit to ICU, monitor labs and vital signs closely. Pending GI and Nephro consultation - Advance Directives Does patient have a Living Will: No Does patient have a Durable POA for Healthcare: No Critical Care: Yes Time Spent Managing Pts Care (In Minutes): 65
[2019-02-22] MEDS ORDERED: NA CHLORIDE 0.9% 1,000 ML IV SCH (17:51)
[2019-02-22] MEDS ORDERED: ONDANSETRON 4 MG/2 ML VIAL IV PRN (17:51)
[2019-02-22] MEDS ORDERED: METRONIDAZOLE 500mg IVPB 500 MG/100 ML BAG IV SCH (19:00)
[2019-02-22 19:39] LABS: Urine Appearance CLOUDY; Urine Blood NEGATIVE (NEG); Urine Color DK YELLOW; Urine Glucose NEGATIVE (NEG); Urine Protein 2+ (NEG); Urine Urobilinogen 0.2 mg/dL (0.2-1.0)
[2019-02-22 19:43] LABS: Urine Bilirubin 1+ (NEG)
[2019-02-22 20:04] LABS: Urine Bacteria <20 /HPF (<20); Urine Culture Reflex Order NOT NEEDED; Urine RBC <5 /HPF (NONE SEEN)
[2019-02-22 20:04] LABS: Absolute Lymphocytes (CBC) 1.5 K/uL (0.7-4.9); Absolute Monocytes 0.9 K/uL (0.1-1.3); Absolute Neutrophil 8.3 K/uL (1.8-8.0); Basophils % 0.3 % (0-1.3); Hematocrit 34.4 % (36.0-45.0); Lymphocytes % 13.8 % (15.3-44.8); MPV 9.7 fL (7.6-11.3); Monocytes % 8.1 % (3.3-12.3); RBC Red Blood Cell Count 3.79 M/uL (3.86-4.86)
--- NOTE | 2019-02-22 20:05 | RAD REPORT ---
EXAM DESCRIPTION: US - Renal Ultrasound-Complete - 02/22/2019 6:47 pm CLINICAL HISTORY: Acute kidney injury COMPARISON: , CT study February 22 FINDINGS: The right kidney measures 10.2 x 5.5 x 4.7 cm. The left kidney measures 11.4 x 5.0 x 4.4 cm.. Cortical echogenicity is increased. Cortical thickness is normal. No hydronephrosis or suspiciou s renal mass. Bilateral renal cysts are present. These are too numerous on the left. Largest on the r ight is 4 cm. Largest on the left approximately 4.2 cm. No bladder wall thickening or mass. No intraluminal stone or mass. IMPRESSION: Medical renal disease is identified in both kidneys. No hydronephrosis or solid mass. Numerous bilateral renal cysts are present without suspicious sonographic characteristics.
[2019-02-22 20:25] LABS: Potassium 5.4 mmol/L (3.5-5.1)
[2019-02-22] MEDS: PANTOPRAZOLE INJ 80 MG in NA CHLORIDE 0.9% 250 ML IV SCH (20:28)
[2019-02-22] MEDS: D5W 1,000 ML with NA BICARB 8.4% 100 MEQ IV SCH ×2 (22:46)
[2019-02-22] MEDS ORDERED: D5W 1,000 ML IV ONE (22:48)
[2019-02-23] MEDS: METRONIDAZOLE 500mg IVPB 500 MG/100 ML BAG IV SCH ×3 (00:22→17:26)
[2019-02-23] MEDS: PANTOPRAZOLE INJ 80 MG in NA CHLORIDE 0.9% 250 ML IV SCH ×3 (05:00→20:53)
[2019-02-23 05:18] LABS: Absolute Lymphocytes (CBC) 1.6 K/uL (0.7-4.9); Absolute Monocytes 1.1 K/uL (0.1-1.3); Absolute Neutrophil 5.2 K/uL (1.8-8.0); Basophils % 0.6 % (0-1.3); Eosinophils % 0.7 % (0-4.4); Hematocrit 34.2 % (36.0-45.0); Lymphocytes % 19.6 % (15.3-44.8); MPV 9.9 fL (7.6-11.3); Monocytes % 13.5 % (3.3-12.3); RBC Red Blood Cell Count 3.81 M/uL (3.86-4.86)
[2019-02-23 05:38] LABS: Albumin 3.1 g/dL (3.4-5.0); Bilirubin Total 0.4 mg/dL (0.2-1.0); Potassium 4.7 mmol/L (3.5-5.1); Protein, Total 6.2 g/dL (6.4-8.2)
[2019-02-23] MEDS: CEFTRIAXONE/SWI 1gm 1 GM/10 ML SYR IVP SCH (09:27)
[2019-02-23 11:58] LABS: Ferritin 98.8 ng/mL (8-388)
--- NOTE | 2019-02-23 12:43 | P.PN ---
Subjective Date of Service: 02/23/19 Chief Complaint: Vomiting, Melena Patient seen and examined at bedside. family at bedside. Chart reviewed and case discussed with nursing staff. Patient states she is doing well. Denies any dizziness, shortness of breath, chest pain, nausea or vomiting. States she has been more sleepy than usual because she is tired. No acute events overnight Review of Systems 10-point ROS is otherwise unremarkable Physical Examination - Vital Signs Temperature: 97.9 F Blood Pressure: 109/54 Pulse: 68 Respirations: 14 Pulse Ox (%): 90 - Physical Exam General: Alert, In no apparent distress, Oriented x3, Other (Sleepy in, arousable able answer all questions appropriately) HEENT: Atraumatic, PERRLA, EOMI Neck: Supple, JVD not distended Respiratory: Clear to auscultation bilaterally, Normal air movement Cardiovascular: Regular rate/rhythm, Normal S1 S2 Gastrointestinal: Normal bowel sounds, No tenderness - Studies Laboratory Data (last 24 hrs) 02/22/19 11:20: WBC 9.4, Hgb 13.7, Hct 42.0, Plt Count 280 Assessment And Plan - Current Problems (Diagnosis) (1) Acute renal failure Onset Date: 02/22/19 Current Visit: Yes Status: Acute Qualifiers: Acute renal failure type: unspecified Qualified Code(s): N17.9 - Acute kidney failure, unspecified (2) Hypotension Current Visit: Yes Status: Acute Qualifiers: Hypotension type: hypotension due to hypovolemia Qualified Code(s): I95.89 - Other hypotension; E86.1 - Hypovolemia (3) Diverticulitis Current Visit: Yes Status: Acute (4) GIB (gastrointestinal bleeding) Current Visit: Yes Status: Acute Qualifiers: GI bleed type/associated pathology: melena Qualified Code(s): K92.1 - Melena (5) Dehydration Onset Date: 07/27/16 Current Visit: No Status: Acute (6) Carotid artery disease Current Visit: Yes Status: Chronic Qualifiers: Carotid artery disease type: unspecified Laterality: unspecified laterality Qualified Code(s): I77.9 - Disorder of arteries and arterioles, unspecified (7) Vomiting Current Visit: No Status: Acute (8) Depression with anxiety Onset Date: 07/27/16 Current Visit: No Status: Chronic (9) Hiatal hernia with GERD Onset Date: 07/27/16 Current Visit: No Status: Chronic (10) Hypertension Onset Date: 07/27/16 Current Visit: No Status: Chronic Qualifiers: Hypertension type: essential hypertension Qualified Code(s): I10 - Essential (primary) hypertension (11) Weakness Onset Date: 06/06/16 Current Visit: No Status: Acute - Plan Patient Problems: Acute renal failure (Acute 02/22/19) Dehydration (Acute 06/06/16) E86.0 IV fluids suggestive nephrology. Continue. Nephrology consulted. Recommendations appreciated Avoid nephrotoxic drugs. Hypotension (Acute) I95.9 Likely secondary to hypovolemia from persistent vomiting. BP improved. Hold BP medications at this time. Will continue to Monitor closely in the ICU If patient gets hypotensive again, may require pressors. Diverticulitis (Acute) K57.92 Continue IV antibiotics at this time. Per GI, start clear liquid diet. Will advance as tolerated GIB (gastrointestinal bleeding) (Acute) K92.2 H&H stable at this time. Continue to [facility] H&H GI consult. Recommendations appreciated. Patient may need a scope down the line when she is more stable. Continue IV protonix Vomiting (Acute) R11.10 No episodes since here zofran for nausea Depression with anxiety (Chronic 07/27/16) F41.8 Will restart home medications Stable at this time. Denies SI or HI Hiatal hernia with GERD (Chronic 07/27/16) K21.9, K44.9 Protinix as above Hypertension (Chronic 07/27/16) I10 Hold BP meds at this time 2/2 hypotension. Will restart as tolerated. Carotid artery disease (Chronic) I77.9 Stable DVT Prophylaxis: Hold d/t GIB GI Prophylaxis: IV protonix Diet: Clear liquid diet, advance as tolerated Disposition: Continue to monitor in ICU. Pending symptomatic improvement
[2019-02-23] MEDS: D5W 1,000 ML with NA BICARB 8.4% 100 MEQ IV SCH ×2 (13:31)
[2019-02-23 13:46] LABS: Protime INR 1.13
[2019-02-23] MEDS ORDERED: ACETAMINOPHEN 500 MG TAB PO PRN (18:05)
[2019-02-23] MEDS: HYDRALAZINE HCL 25 MG TABLET PO SCH ×2 (18:21→20:54)
[2019-02-24] MEDS: METRONIDAZOLE 500mg IVPB 500 MG/100 ML BAG IV SCH ×3 (00:24→16:14)
--- NOTE | 2019-02-24 01:40 | CON ---
Date of Consultation: 02/23/2019 History Of Present Illness: Acute kidney injury. History Of Present Illness: Acute kidney injury, nonoliguric, severe, in the setting of chronic kidney disease stage 3. Baseline creatinine level back in October 2019 was ranging from 1.2 to 1.5. On presentation to the hospital, creatinine level was 9.11 and BUN was 100. Electrolytes as follows: Sodium 141 , potassium 5.4, CO2 13, chloride 112, calcium 7.9. The patient has severe acute kidney injury, nonoliguric, associated with hyperkalemia, metabolic acidosis. Renal function has not improved significantly since yesterday. BUN today is 97, creatinine 7.51. The patient has history of acute kidney injury. Several years ago she developed acute kidney injury, and she did not require dialysis. Renal ultrasound was done and it showed medical renal disease, right kidney 10.2 x 5.5 cm in length, left kidney 11.4 x 5.0. Cortical echogenicity was increased. Cortical thickness is normal. The patient has bilateral kidney cysts, largest cyst on the left approximately 4.2 cm in length. The patient had CT scan of the abdomen and pelvis done without contrast and it showed moderate hiatal hernia, diverticular changes, minimal stranding adjacent to sigmoid. Wall of the transverse colon appeared to be mildly thickened. The liver, pancreas, adrenal glands appear normal. Bilateral renal cysts, the largest of the right kidney measuring 4 cm in length was present. Apparent mild thickening of the wall of the transverse colon, might indicate mild colitis secondary to incomplete distention. The patient came to the hospital on February 22. She was complaining of generalized weakness. She is admitted to ICU. She developed nausea, vomiting, and melena. Past Medical History: Significant for hypertension, depression. She developed melena about 1 week ago and was complaining of vomiting for several days. She denies hematemesis, although she has dark stools. She was lethargic and had decreased p.o. intake. On arrival to the hospital, she was found to have severe hypotension. Systolic blood pressure was 70. She responded to IV fluid resuscitation, received 2.5 L of normal saline bolus. Creatinine was 9.11. Electrolytes showed some hyperkalemia and metabolic acidosis. Hemoglobin level was 13.7. The patient is admitted to ICU for Protonix drip and treatment of possible diverticulitis. The patient remains on pressors, and she has IV fluids for volume resuscitation. She remained hemodynamically stable. Review of Systems: Constitutional: She denies fever, chills. Eyes: Denies vision changes. Ears, Nose, Mouth and Throat: Denies sore throat, earache. Respiratory: Denies PND, orthopnea. Cardiovascular: Denies chest pain or palpitation. GI: She had melena, nausea, vomiting, decreased p.o. intake. Neurological: She was complaining of generalized weakness. Denies speech problems. : She denied dysuria, hematuria, incomplete voiding. All other systems reviewed and all are negative. Past Medical History: Hypertension, hyperlipidemia, GERD, history of esophageal stenosis, depression with anxiety, anemia, chronic history of left renal cyst and right renal cyst, bilateral multiple kidney cysts, chronic kidney disease stage 3, history of acute kidney injury several years ago, degenerative disk disease and joint disease, carotid surgery, hysterectomy, appendicectomy, uterus removed, carotid arterial disease. Family History: Father, seizure. Mother, heart disease, hypertension, and cancer. Social History: Denies tobacco, alcohol, or illicit drugs. Physical Examination: General: The patient is awake, alert, lethargic. Eyes: Anicteric sclerae. EOMI. Ears, Nose, Mouth, and Throat: Oral mucosa moist. No pallor. Neck: Supple. No JVD. No bruits. Lungs: Few crackles at bases. No rhonchi. Heart: S1, S2. No pericardial friction rub. Abdomen: Soft. There is generalized tenderness. Extremities: Slight edema. No cellulitis Neurological: Moving extremities. Cranial nerves intact. Psychiatric: Alert, oriented x3. Normal affect. Laboratory Data: Sodium 139, potassium 4.7, chloride 111, CO2 15, BUN is 97, creatinine is 7.51, total bilirubin 0.4, uric acid 9.0, CK level 425, troponin is less than 0.02, albumin 3.1, total protein is 6.2, lipase 742, amylase is pending. Impression And Plan: 1. Acute kidney injury, severe nonoliguric. The patient was found to have severe hypotension on arrival to the hospital was treated for severe volume depletion. The patient received IV fluids to control severe renal hypoperfusion and hypotension. The patient currently is on sodium bicarbonate for treatment of metabolic acidosis secondary to acute kidney injury and diarrhea. Continue to monitor electrolytes. Adjust bicarbonate drip accordingly. 2. Severe hypotension, blood pressure improving. 3. Melena. The patient will have workup to rule out colon cancer. The patient likely has diverticulitis and possible diverticular bleeding. Monitor hemoglobin level. Continue IV fluids as needed and blood transfusion according to hemoglobin level. 4. Check PT/INR to rule out coagulopathy. 5. The patient will continue Protonix drip for possible upper gastrointestinal bleeding. 6. Severe acute kidney injury, nonoliguric. The patient may require dialysis if renal function does not stabilize over the next few days. Currently, the patient does not have hyperkalemia. Metabolic acidosis is treated with bicarbonate drip. Continue current treatment. EB/MODL Voice ID: [id number] Report ID: [id number] MTDD
[2019-02-24] MEDS: D5W 1,000 ML with NA BICARB 8.4% 100 MEQ IV SCH ×2 (05:15)
[2019-02-24 05:55] LABS: Hematocrit 32.6 % (36.0-45.0); MPV 9.6 fL (7.6-11.3); RBC Red Blood Cell Count 3.66 M/uL (3.86-4.86)
[2019-02-24 06:02] LABS: Albumin 3.1 g/dL (3.4-5.0); Bilirubin Total 0.5 mg/dL (0.2-1.0); Potassium 4.2 mmol/L (3.5-5.1)
[2019-02-24 08:08] LABS: Anisocytosis 1+; Blood Morphology Comment NOTED (NOT SEEN); Burr Cells 1+; Platelet Estimate ADEQ; Polychromasia 1+
[2019-02-24] MEDS: CEFTRIAXONE/SWI 1gm 1 GM/10 ML SYR IVP SCH (09:25)
[2019-02-24] MEDS: HYDRALAZINE HCL 25 MG TABLET PO SCH ×3 (09:25→20:01)
[2019-02-24] MEDS: PANTOPRAZOLE INJ 80 MG in NA CHLORIDE 0.9% 250 ML IV SCH (10:37)
--- NOTE | 2019-02-24 11:06 | P.PN ---
Subjective Date of Service: 02/24/19 Chief Complaint: Vomiting, Melena Subjective: Improving (Improving in ICU, no longer with acidemia, renal failure improving slowly, more energetic. No blood seen today, though hgb slowly drifting down, now at 10.8.) Review of Systems 10-point ROS is otherwise unremarkable General: Weakness (Improving ), Malaise Physical Examination - Vital Signs Temperature: 98.3 F Blood Pressure: 110/66 Pulse: 91 Respirations: 16 Pulse Ox (%): 95 - Physical Exam General: Alert, In no apparent distress, Oriented x3, Cooperative HEENT: Atraumatic, Normocephalic, PERRLA, EOMI Neck: Supple Respiratory: Normal air movement Cardiovascular: Normal pulses Gastrointestinal: Soft and benign, No tenderness, No rebound, No guarding Neurological: Normal speech, Normal strength at 5/5 x4 extr Assessment And Plan - Current Problems (Diagnosis) (1) Melena Current Visit: Yes Status: Acute Comment: Improved, though hgb down to 10.8 (2) Acidemia Current Visit: Yes Status: Acute Comment: Resolved. (3) Acute renal failure Onset Date: 02/22/19 Current Visit: Yes Status: Acute Comment: Slowly improving Qualifiers: Acute renal failure type: unspecified Qualified Code(s): N17.9 - Acute kidney failure, unspecified (4) GIB (gastrointestinal bleeding) Current Visit: Yes Status: Acute Qualifiers: GI bleed type/associated pathology: melena Qualified Code(s): K92.1 - Melena - Plan REC: 1) continue PPI therapy and IVFs 2) EGD soon 3) serial H&Hs and transfuse prn 4) diet CL to FLs
[2019-02-24] MEDS: NA CHLORIDE 0.9% 1,000 ML IV SCH (16:14)
[2019-02-24] MEDS: METOPROLOL XL 50 MG TAB PO SCH (16:14)
[2019-02-24] MEDS: LISINOPRIL 20 MG TAB PO SCH (16:14)
--- NOTE | 2019-02-24 19:48 | P.PN ---
Subjective Date of Service: 02/24/19 Chief Complaint: Vomiting, Melena Subjective: Improving Patient seen and examined at bedside. family at bedside. Chart reviewed and case discussed with nursing staff. Patient states she is doing well. Denies any dizziness, shortness of breath, chest pain, nausea or vomiting. Sitting up in chair comfortably. No acute events overnight Review of Systems 10-point ROS is otherwise unremarkable Physical Examination - Vital Signs Temperature: 98.0 F Blood Pressure: 164/78 Pulse: 76 Respirations: 14 Pulse Ox (%): 93 - Physical Exam General: Alert, In no apparent distress Neck: Supple, JVD not distended Respiratory: Clear to auscultation bilaterally, Normal air movement Cardiovascular: Regular rate/rhythm, Normal S1 S2 Assessment And Plan - Current Problems (Diagnosis) (1) Acute renal failure Onset Date: 02/22/19 Current Visit: Yes Status: Acute Qualifiers: Acute renal failure type: unspecified Qualified Code(s): N17.9 - Acute kidney failure, unspecified (2) Hypotension Current Visit: Yes Status: Acute Qualifiers: Hypotension type: hypotension due to hypovolemia Qualified Code(s): I95.89 - Other hypotension; E86.1 - Hypovolemia (3) Diverticulitis Current Visit: Yes Status: Acute (4) GIB (gastrointestinal bleeding) Current Visit: Yes Status: Acute Qualifiers: GI bleed type/associated pathology: melena Qualified Code(s): K92.1 - Melena (5) Dehydration Onset Date: 07/27/16 Current Visit: No Status: Acute (6) Carotid artery disease Current Visit: Yes Status: Chronic Qualifiers: Carotid artery disease type: unspecified Laterality: unspecified laterality Qualified Code(s): I77.9 - Disorder of arteries and arterioles, unspecified (7) Vomiting Current Visit: No Status: Acute (8) Depression with anxiety Onset Date: 07/27/16 Current Visit: No Status: Chronic (9) Hiatal hernia with GERD Onset Date: 07/27/16 Current Visit: No Status: Chronic (10) Hypertension Onset Date: 07/27/16 Current Visit: No Status: Chronic Qualifiers: Hypertension type: essential hypertension Qualified Code(s): I10 - Essential (primary) hypertension (11) Weakness Onset Date: 06/06/16 Current Visit: No Status: Acute - Plan Patient Problems: Acute renal failure (Acute 02/22/19) Dehydration (Acute 06/06/16) E86.0 IV fluids adjusted by nephrology. Continue. Nephrology consulted. Recommendations appreciated Avoid nephrotoxic drugs. Hypotension (Acute) I95.9 Likely secondary to hypovolemia from persistent vomiting. BP improved. Now blood pressure starting to increase. Will restart home medications as tolerated May transfer to the floor Diverticulitis (Acute) K57.92 Continue IV antibiotics at this time. Per GI, start clear liquid diet. Will advance as tolerated GIB (gastrointestinal bleeding) (Acute) K92.2 H&H stable at this time. Continue to [facility] H&H GI consult. Recommendations appreciated. Patient may need a scope down the line when she is more stable. Continue IV protonix Vomiting (Acute) R11.10 No episodes since here zofran for nausea Depression with anxiety (Chronic 07/27/16) F41.8 Will restart home medications Stable at this time. Denies SI or HI Hiatal hernia with GERD (Chronic 07/27/16) K21.9, K44.9 Protinix as above Hypertension (Chronic 07/27/16) I10 Restart medications as tolerated. Blood pressure now starting to increase. Carotid artery disease (Chronic) I77.9 Stable DVT Prophylaxis: Hold d/t GIB GI Prophylaxis: IV protonix Diet: Clear liquid diet, advance as tolerated Disposition: Transferred to the floor. Pending symptomatic improvement
[2019-02-25] MEDS: PANTOPRAZOLE INJ 80 MG in NA CHLORIDE 0.9% 250 ML IV SCH ×3 (01:31→16:49)
[2019-02-25] MEDS: METRONIDAZOLE 500mg IVPB 500 MG/100 ML BAG IV SCH ×3 (01:32→16:49)
[2019-02-25] MEDS: NA CHLORIDE 0.9% 1,000 ML IV SCH ×2 (04:20→09:27)
[2019-02-25 04:27] LABS: Absolute Lymphocytes (CBC) 1.8 K/uL (0.7-4.9); Absolute Monocytes 1.5 K/uL (0.1-1.3); Absolute Neutrophil 4.8 K/uL (1.8-8.0); Basophils % 0.9 % (0-1.3); Hematocrit 32.1 % (36.0-45.0); MPV 9.7 fL (7.6-11.3)
[2019-02-25 04:33] LABS: Monocytes % 18.5 % (3.3-12.3)
--- NOTE | 2019-02-25 04:53 | PN ---
Date of Progress Note: 02/24/2019 Chief Complaint: Acute kidney injury, severe, nonoliguric associated with renal hypoperfusion and nonoliguric ATN. History Of Present Illness: The patient is responding to IV fluids. Renal function has not improved significantly. The patient was found to have severe metabolic acidosis and was started on bicarbonate drip. Bicarbonate level has improved and bicarbonate drip was terminated. The patient is on normal saline fluid for hydration. The patient has multiple medical problems. She came to the hospital because she developed lower GI bleeding with melena and she is undergoing workup to rule out colon cancer. The patient is started on Protonix drip for possible upper gastrointestinal bleeding. Review of Systems: Denies fever, chills. Denies nausea, vomiting. Physical Examination: Lungs: Clear to auscultation bilaterally. Heart: S1, S2. Abdomen: Soft, benign. Extremities: No edema. Laboratory Data: Blood work today show sodium 131, potassium 4.2, chloride 111 , CO2 20, glucose 105, BUN 75, creatinine 4.19, calcium 7.7. Impression And Plan: 1. Acute kidney injury, severe. Renal function has not improved significantly over the last 24 hours. The patient remains in ICU. She is hemodynamically stable. She will continue IV fluids. She developed gastrointestinal bleeding. She may require blood transfusion. She is undergoing treatment for diverticulitis. 2. Hypertension. Blood pressure in acceptable control. 3. Generalized weakness. Monitor hemoglobin level. At this point, the patient does not require transfusion. Hemoglobin level is 10.3. 4. Metabolic acidosis. Bicarbonate on arrival to the hospital was 12, subsequently improved to 15. Potassium level improved from 5.4 to 4.2. Metabolic acidosis is controlled. Bicarbonate is 20 today. Plan is to stop drip with bicarbonate and continue IV normal saline. The patient did not want to start dialysis. Renal function is improving in response to IV fluids. The patient has underlying chronic kidney stage 3. Monitor renal function and fluid balance. Continue IV fluids. I spent total 36 min including 25 min to coordinate care plan. EL/LOUIS Voice ID: [id number] Report ID: [id number] WENDY
[2019-02-25 05:13] LABS: Bilirubin Total 0.6 mg/dL (0.2-1.0); Potassium 4.1 mmol/L (3.5-5.1); Protein, Total 5.9 g/dL (6.4-8.2)
[2019-02-25] MEDS: METOPROLOL XL 50 MG TAB PO SCH (06:19)
[2019-02-25] MEDS: CEFTRIAXONE/SWI 1gm 1 GM/10 ML SYR IVP SCH (09:25)
[2019-02-25] MEDS: HYDRALAZINE HCL 25 MG TABLET PO SCH ×3 (09:26→21:53)
[2019-02-25] MEDS: LISINOPRIL 20 MG TAB PO SCH (09:26)
--- NOTE | 2019-02-25 19:29 | P.PN ---
Subjective Date of Service: 02/25/19 Chief Complaint: Vomiting, Melena Subjective: Improving Patient seen and examined at bedside. family at bedside. Chart reviewed and case discussed with nursing staff. Patient states she is doing well. Denies any dizziness, shortness of breath, chest pain, nausea or vomiting. Sitting up in chair comfortably. No acute events overnight Denies any episodes of melena overnight, though she is not sure. Review of Systems 10-point ROS is otherwise unremarkable Physical Examination - Vital Signs Temperature: 98.6 F Blood Pressure: 164/79 Pulse: 66 Respirations: 18 Pulse Ox (%): 96 - Physical Exam General: Alert, In no apparent distress HEENT: Atraumatic, PERRLA, EOMI Neck: Supple, JVD not distended Respiratory: Clear to auscultation bilaterally, Normal air movement Cardiovascular: Regular rate/rhythm, Normal S1 S2 Gastrointestinal: Normal bowel sounds, No tenderness Assessment And Plan - Current Problems (Diagnosis) (1) Acute renal failure Onset Date: 02/22/19 Current Visit: Yes Status: Acute Qualifiers: Acute renal failure type: unspecified Qualified Code(s): N17.9 - Acute kidney failure, unspecified (2) Hypotension Current Visit: Yes Status: Acute Qualifiers: Hypotension type: hypotension due to hypovolemia Qualified Code(s): I95.89 - Other hypotension; E86.1 - Hypovolemia (3) Diverticulitis Current Visit: Yes Status: Acute (4) GIB (gastrointestinal bleeding) Current Visit: Yes Status: Acute Qualifiers: GI bleed type/associated pathology: melena Qualified Code(s): K92.1 - Melena (5) Dehydration Onset Date: 07/27/16 Current Visit: No Status: Acute (6) Carotid artery disease Current Visit: Yes Status: Chronic Qualifiers: Carotid artery disease type: unspecified Laterality: unspecified laterality Qualified Code(s): I77.9 - Disorder of arteries and arterioles, unspecified (7) Vomiting Current Visit: No Status: Acute (8) Depression with anxiety Onset Date: 07/27/16 Current Visit: No Status: Chronic (9) Hiatal hernia with GERD Onset Date: 07/27/16 Current Visit: No Status: Chronic (10) Hypertension Onset Date: 07/27/16 Current Visit: No Status: Chronic Qualifiers: Hypertension type: essential hypertension Qualified Code(s): I10 - Essential (primary) hypertension (11) Weakness Onset Date: 06/06/16 Current Visit: No Status: Acute - Plan Patient Problems: Acute renal failure (Acute 02/22/19) Dehydration (Acute 06/06/16) E86.0 Creatinine improving. IV fluids adjusted by nephrology. Continue. Nephrology consulted. Recommendations appreciated Avoid nephrotoxic drugs. Hypotension (Acute) I95.9 Likely secondary to hypovolemia from persistent vomiting. BP improved. Now blood pressure starting to increase. Will restart home medications as tolerated Transferred to the floor from the ICU, blood pressure remained stable. Diverticulitis (Acute) K57.92 Continue IV antibiotics at this time. Per GI, continue clear liquid diet. GIB (gastrointestinal bleeding) (Acute) K92.2 H&H stable at this time. Continue to [facility] H&H GI consult. Recommendations appreciated. Patient may need a scope soon when she is more stable. Continue IV protonix Vomiting (Acute) R11.10 No episodes since here zofran for nausea Depression with anxiety (Chronic 07/27/16) F41.8 Will restart home medications Stable at this time. Denies SI or HI Hiatal hernia with GERD (Chronic 07/27/16) K21.9, K44.9 Protonix as above Hypertension (Chronic 07/27/16) I10 Continue medications as tolerated. Blood pressure now starting to increase. Carotid artery disease (Chronic) I77.9 Stable DVT Prophylaxis: Hold d/t GIB GI Prophylaxis: IV protonix Diet: Clear liquid diet Disposition: Pending symptomatic improvement and GI workup for GI bleed. Discharge Plan: Home
[2019-02-26] MEDS ORDERED: HYDRALAZINE HCL 20 MG/ML VIAL IV ONE ×4 (00:48→13:11)
[2019-02-26] MEDS: METRONIDAZOLE 500mg IVPB 500 MG/100 ML BAG IV SCH ×3 (01:22→16:25)
[2019-02-26] MEDS: NA CHLORIDE 0.9% 1,000 ML IV SCH ×3 (01:26→15:25)
--- NOTE | 2019-02-26 03:33 | PN ---
Date of Progress Note: 02/25/2019 Chief Complaint: Acute kidney injury. History Of Present Illness: Acute kidney injury, nonoliguric, severe. Renal function has gradually improved. Urine output is nonoliguric. Primarily when she came to the hospital, creatinine was 9.11 and BUN was 100. The patient has a history of acute kidney injury several years ago. She developed acute kidney injury and did not require dialysis. Renal ultrasound showed medical renal disease, right kidney at 10.2 cm in length, left kidney is 11.4. Review of Systems: Denies fever, chills. Physical Examination: Lungs: Few crackles at bases. Heart: S1, S2. Abdomen: Soft, benign. Extremities: Slight edema. Impression And Plan: 1. End-stage renal disease. Continue to monitor fluid balance and urine output. 2. Avoid nonsteroidal anti-inflammatory medication. 3. Hypertension. Blood pressure is in acceptable control. Monitor blood pressure and add diuretic as needed for volume control. 4. Severe hypertension. Blood pressure is improving. 5. Melena. The patient will have a surgery for colon cancer. 6. Acute kidney injury. The patient has responded to IV fluids. Avoid nonsteroidal anti-inflammatory medication. EL/LOUIS Voice ID: [id number] Report ID: [id number] WENDY
[2019-02-26] MEDS: METOPROLOL XL 50 MG TAB PO SCH (06:07)
[2019-02-26] MEDS: PANTOPRAZOLE INJ 80 MG in NA CHLORIDE 0.9% 250 ML IV SCH ×3 (06:07→18:14)
[2019-02-26 06:14] LABS: Potassium 4.3 mmol/L (3.5-5.1)
[2019-02-26 06:18] LABS: Hematocrit 32.3 % (36.0-45.0); MPV 9.2 fL (7.6-11.3); RBC Red Blood Cell Count 3.61 M/uL (3.86-4.86)
[2019-02-26] MEDS: CEFTRIAXONE/SWI 1gm 1 GM/10 ML SYR IVP SCH (08:20)
[2019-02-26 08:57] LABS: Anisocytosis 2+; Blood Morphology Comment NOTED (NOT SEEN); Burr Cells 2+; Elliptocytes 1+; Platelet Estimate ADEQ
[2019-02-26] MEDS: HYDRALAZINE HCL 25 MG TABLET PO SCH ×3 (09:00→22:31)
[2019-02-26] MEDS ORDERED: LIDOCAINE 1% MPF 5 ML VIAL ONE (12:15)
[2019-02-26] MEDS ORDERED: PROPOFOL 200 MG/20 ML VIAL IV ONE (12:15)
--- NOTE | 2019-02-26 12:36 | ENDO RPT ---
[address], [address] EGD PROCEDURE REPORT EXAM DATE: 02/26/2019 PATIENT NAME: Safia Christensen MR#: [id number] BIRTHDATE: 1940 ATTENDING: Al Eduardo Dr STATUS: inpatient - 7 RN L AND D: Starla Curry and Meg Duque RN INDICATIONS: The patient is a 78 yr old Female here for an EGD due to melenic bleeding and anemia PROCEDURE PERFORMED: EGD with biopsy MEDICATIONS: Per Anesthesia. TOPICAL ANESTHETIC: none CONSENT: The patient understands the risks and benefits of the procedure and understands that these risks include, but are not limited to: sedation, allergic reaction, infection, perforation and/or bleeding. Alternative means of evaluation and treatment include, among others: physical exam, x-rays, and/or surgical intervention. The patient elects to proceed with this endoscopic procedure. DESCRIPTION OF PROCEDURE: During intra-op preparation period all mechanical medical equipment was checked for proper function. Hand hygiene and appropriate measures for infection prevention was taken. Procedure, possible complications, and alternatives including but not limited to the possibility of bleeding, perforation, tear, infection, sepsis, need for surgery, need for blood transfusion, and anesthesia related complications were explained to the patient. After the risks, benefits and alternatives of the procedure were thoroughly explained, Informed consent was verified, confirmed and timeout was successfully executed by the treatment team. The patient was placed in the left lateral position. The patient was anesthetized with topical anesthesia. Through the anesthetized oropharyngeal area, the scope was passed without any difficulty. The [id number] ([id number]) endoscope was introduced through the mouth and advanced to the third portion of the duodenum. Retroflexed views revealed a moderate sized hiatal hernia. The gastroscope was then slowly withdrawn and removed. A Schatzki's ring was found in the lower esophagus. A moderate sized hiatal hernia was found Nodular mucosa was found in the body of the stomach. Multiple biopsies were obtained and sent to pathology. Multiple erosions were found in the antrum. Multiple biopsies were obtained and sent to pathology. Duodenitis was found in the bulb and descending duodenum. Multiple erosions were found in the descending duodenum. Mild notching of small bowel folds, s/p biopsies. ADVERSE EVENTS: There were no complications. IMPRESSIONS: 1. Schatzki's ring in the lower esophagus (no history of dysphagia) 2. Moderate sized hiatal hernia 3. Nodular mucosa in the body of the stomach, s/p biopsies 4. Multiple ( 30) erosions in the antrum, s/p biopsies 5. Duodenitis in the bulb and descending duodenum 6. Multiple ( 4) erosions in the descending duodenum 7. Mild notching of small bowel folds, s/p biopsies RECOMMENDATIONS: 1. await biopsy results 2. acid suppression therapy 3. check celiac panel REPEAT EXAM: Al Eduardo Dr eSigned: Al Eduardo Dr 02/26/2019 12:35 PM cc: CPT CODES: ICD9 CODES: PATIENT NAME: Safia Christensen MR#: [id number]
[2019-02-26] MEDS: LISINOPRIL 20 MG TAB PO SCH (13:26)
[2019-02-26] MEDS ORDERED: cloNIDine HCl 0.1 MG TAB PO PRN (15:04)
[2019-02-26] MEDS: AMLODIPINE 10 MG TAB PO SCH (15:22)
[2019-02-26] MEDS: HYDRALAZINE HCL 20 MG/ML VIAL IV PRN ×2 (15:24→22:31)
--- NOTE | 2019-02-26 17:03 | PN ---
Date of Progress Note: 02/26/2019 Subjective: The patient came with GI bleed. Kidney function being around baseline. The patient has no nausea, no vomiting. No recent change of her medication. Physical Examination: Vital Signs: Blood pressure 162/67, pulse of 61. Afebrile. Chest: Clear to auscultation. Heart: S1, S2, regular. Abdomen: Soft, nontender. Extremities: Trace edema. Laboratory Data: WBC 8.5, H and H 10.6/32.3, platelet of 183. Sodium 147, potassium 4.3, bicarb 23, BUN 1.2, GFR of 24, calcium 7.9. Current Medications: The patient on its include: 1.Hydralazine 100 t.i.d. 2.Lisinopril 20 mg b.i.d. 3.Metoprolol 50 b.i.d. 4.Tylenol. 5.Zofran. 6.IV fluid 75 per hour. Assessment And Plan: 1.Acute kidney injury secondary to prerenal, secondary to the gastrointestinal loss, back to her bas kayli, looked to me close to normal volume. I going to decrease IV fluid to 50 per hour, given that the patient is going to be n.p.o. for the time being for the EGD. Next, I going to keep holding the lisinopril given the recent acute kidney injury and we will monitor the patient. 2.Hypertension, not controlled. We will add calcium channel luz again because of the recent acu te kidney injury. I am going to hold on the AMERICA inhibitor for the time being. 3.Gastrointestinal bleed. Plan for EGD. We will follow up with GI. Gaines for using PPI for the donaldo e being. MERARI Voice ID: [id number] Report ID: [id number]
--- NOTE | 2019-02-26 17:18 | PN ---
Date of Progress Note: 02/26/2019 Subjective: Patient is seen and examined. Chart reviewed and case discussed with RN. The patient w ent for EGD today, has uncontrolled blood pressure, likely as she was n.p.o. Did not receive her blo od pressure medications this morning. Code Status: Full. Physical Examination: Vital Signs: Temperature 98, heart rate 65, blood pressure 162/67, respirations 16, O2 97% on room a ir. General: Awake, alert, oriented x3 elderly female. CV: S1, S2. Regular rate and rhythm. Peripheral pulses present. Respiratory: Moving air well bilaterally. No wheezing. Gastrointestinal: Abdomen is soft, nontender, nondistended. Positive bowel sounds. Extremities: No clubbing, cyanosis, or edema. Neurologic: Nonfocal. Laboratory Data: Sodium 147, potassium 4.3, chloride 117, CO2 23, BUN 24, creatinine 1.29, glucose 1 04, calcium 7.9. WBC 8.5, H and H 10.6 and 32.3, platelets 183, neutrophils not present. Assessment And Plan: An 78-year-old female with. 1.Acute kidney injury, creatinine improving, likely secondary to hypotension. We will continue to a void nephrotoxins. Monitor creatinine. Appreciate Nephrology input. 2.Acute hypotension secondary to hypovolemia from persistent vomiting. Blood pressure now on the un controlled side. We will continue with blood pressure medications p.o. and IV hydralazine. The tigre ent was in ICU previously. 3.Diverticulitis. The patient has had esophagogastroduodenoscopy today. Advance diet per GI. 4.Gastrointestinal bleed. H and H are stable. Hemoccult was positive now status post esophagogastr oduodenoscopy. We will continue with IV Protonix. Monitor for signs of bleeding. 5.Intractable nausea and vomiting, resolved. Continue antiemetics p.r.n. 6.Depression with anxiety, stable. 7.Hiatal hernia with gastroesophageal reflux disease. We will continue with Protonix. 8.Essential hypertension, uncontrolled. Blood pressure initially was low due to hypovolemia and vom iting but however now has been uncontrolled in the 200 systolic. p.r.n. medications added. 9.Carotid artery disease, chronic, currently stable. 10.Deep vein thrombosis prophylaxis. Hold Lovenox due to gastrointestinal bleed. Continue SCDs and GI prophylaxis with Protonix. Plan: Adjust blood pressure medications. Follow up with GI and Nephrology. Likely discharge in the next 24-48 hours depending on clinical response. /LOUIS Voice ID: [id number] Report ID: [id number]
[2019-02-26] MEDS ORDERED: ROSUVASTATIN 10 MG TAB PO SCH (21:00)
[2019-02-26 22:13] VITALS: O2SAT 94
[2019-02-26] MEDS: MEMANTINE HCL 10 MG TABLET PO SCH (22:31)
[2019-02-26] MEDS: GABAPENTIN 300 MG CAP PO SCH (22:32)
[2019-02-27] MEDS: METRONIDAZOLE 500mg IVPB 500 MG/100 ML BAG IV SCH ×3 (02:03→16:11)
[2019-02-27] MEDS: PANTOPRAZOLE INJ 80 MG in NA CHLORIDE 0.9% 250 ML IV SCH ×2 (05:00→09:00)
[2019-02-27] MEDS: METOPROLOL XL 50 MG TAB PO SCH (06:03)
[2019-02-27 06:33] VITALS: BMI 24.7
[2019-02-27] MEDS: MEMANTINE HCL 10 MG TABLET PO SCH (08:24)
[2019-02-27] MEDS: GABAPENTIN 300 MG CAP PO SCH (08:25)
[2019-02-27] MEDS: HYDRALAZINE HCL 25 MG TABLET PO SCH ×2 (08:25→13:05)
[2019-02-27] MEDS: AMLODIPINE 10 MG TAB PO SCH (08:26)
[2019-02-27 08:47] VITALS: BP 164/78; TEMP 98.3
[2019-02-27] MEDS ORDERED: LISINOPRIL 20 MG TAB PO SCH (09:00)
[2019-02-27] MEDS ORDERED: CITALOPRAM 10 MG TABLET PO SCH (09:00)
[2019-02-27] MEDS: CEFTRIAXONE/SWI 1gm 1 GM/10 ML SYR IVP SCH (09:32)
[2019-02-27] MEDS: NA CHLORIDE 0.9% 1,000 ML IV SCH ×2 (10:00→13:08)
--- NOTE | 2019-02-27 12:36 | P.PN ---
Subjective Date of Service: 02/27/19 Chief Complaint: Vomiting, Melena Subjective: Improving (No GI bleeding noted. On floor, out of ICU. Tolerating po diet well.) Review of Systems 10-point ROS is otherwise unremarkable General: Weakness (Improved) Physical Examination - Vital Signs Temperature: 98.3 F Blood Pressure: 164/78 Pulse: 71 Respirations: 18 Pulse Ox (%): 98 - Physical Exam General: Alert, In no apparent distress, Oriented x3, Cooperative HEENT: Atraumatic, Normocephalic, PERRLA, EOMI Neck: Supple Respiratory: Normal air movement Cardiovascular: Normal pulses Gastrointestinal: Soft and benign, No tenderness, No rebound, No guarding Neurological: Normal speech Assessment And Plan - Current Problems (Diagnosis) (1) Melena Current Visit: Yes Status: Acute Comment: Hgb stable at 10.6. No further bleeding. Probable due to numerous erosions in the antrum and duodenum; now on PPI therapy. (2) Acidemia Current Visit: Yes Status: Acute Comment: Resolved. 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
[2019-02-27] MEDS ORDERED: CARVEDILOL 25 MG TAB PO SCH (18:00)
--- NOTE | 2019-02-27 19:57 | PN ---
Subjective: The patient is doing well. More awake. No nausea, no vomiting. Physical Examination: Vital Signs: Blood pressure 164/78, pulse of 71. Chest: Clear to auscultation. Heart: S1, S2. Regular. Abdomen: Soft, nontender. Extremities: No edema. Laboratory Data: H and H 10.6 over 32.3. Sodium 147, potassium 4.3, bicarb 23, BUN 24, creatinine 1 .2. GFR of 48, calcium 7.9. Current Medications: 1.Amlodipine. 2.Clonidine 0.1 t.i.d. 3.Hydralazine 100 t.i.d. 4.Lisinopril 20 b.i.d. 5.Metoprolol. 6.Gabapentin. Assessment And Plan: 1.Acute kidney injury secondary to prerenal, recovered and resolved. I am going to go ahead and dis continue IV fluid. Hold on adding any AMERICA inhibitor for the time being and we will monitor. 2.Hypertension. We just adjust hydralazine, discontinue lisinopril given the acute kidney injury. I can switch her metoprolol to carvedilol and we will discontinue IV fluid. We will follow up. 3.Gastrointestinal bleed, status post EGD. We will follow up with GI and primary. JUANA/LOUIS Voice ID: [id number] Report ID: [id number]
--- NOTE | 2019-02-28 06:04 | DS ---
Date of Discharge: 02/27/2019 Fusing Line Inspector: Dr. Murphy with Nephrology, Dr. Eduardo with GI, Dr. Zaman with Nephrology as well. Procedures: Endoscopy on 02/26/2019 with findings of hiatal hernia. Schatzki's ring in lower esopha juliann, nodular mucosa in the stomach, multiple erosions in the antrum, duodenitis, notching of the smal l bowel folds. Admitting Diagnoses: 1.Acute kidney injury. 2.Hypertension. 3.Diverticulitis. 4.Gastrointestinal bleed. 5.Dehydration. 6.Carotid artery disease. 7.Nausea and vomiting. 8.Depression with anxiety. 9.Hiatal hernia with gastroesophageal reflux disease. 10.Essential hypertension, currently hypotensive. 11.Generalized weakness. Discharge Diagnoses: 1.Acute kidney injury, resolved, due to hypotension. 2.Acute hypotension, secondary to hypovolemia from persistent vomiting, resolved. 3.Diverticulitis. 4.Duodenitis. 5.Gastrointestinal bleed. Hemoglobin and hematocrit stable, status post esophagogastroduodenoscopy. 6.Intractable nausea and vomiting, resolved. 7.Depression with anxiety, stable. 8.Hiatal hernia with gastroesophageal reflux disease. We will continue with proton pump inhibitor. 9.Essential hypertension, not well controlled. 10.Carotid artery disease, on aspirin and Plavix. 11.Schatzki's ring. Hospital Course: The patient is an 78-year-old female who comes in with vomiting and melena with savannah k bloody stools and the patient was found to be hypotensive with systolic blood pressure in the 70s. The patient responded to IV fluid boluses and her blood pressure improved. The patient's hemoglobin initially started at 13.7. CT scan showed moderate hiatal hernia and colitis and diverticulitis as well as a thoracic aneurysm. The patient was admitted to the ICU. The patient did well. Over the c ourse of the hospital stay, her blood pressure improved. She was able to be transferred out of the [facility]. Her blood pressure then went on the opposite spectrum and was difficult to control. Regarding h er kidney function, Dr. Murphy and Dr. Zaman were consulted. This was due to hypotension . Creatinine normalized after rehydration and resuscitation; initially it was 9.11. The patient was also seen by GI, Dr. Eduardo, and the procedure was done as mentioned above. She tolerated the EGD w ell with findings of duodenitis, Schatzki's ring, and erosions in the stomach. Her C. diff assay was negative. Fecal occult blood was however positive. The patient was doing well. Her hemoglobin rem ained stable, did not require any blood transfusions. She was then cleared for discharge from Nephro logy and GI standpoint. She was sent home in a stable condition. Activity: As tolerated. Fall precautions. Medications: As per medication reconciliation list. The patient will continue PPI b.i.d. Followup: Will follow up with primary care physician in 2-3 days. Follow up with GI, Dr. Eduardo, in 2 weeks. Follow up with document control associate, Dr. Murphy, in 2 weeks. Return to ER for worsening conditi on. Diet: Heart healthy. Activity: Fall precautions. Physical Examination: General: Awake, alert, oriented x3. No acute distress. CV: S1, S2. No murmurs. Respiratory: Moving air well bilaterally. Abdomen: Abdomen is soft, nontender, nondistended. Positive bowel sounds. Extremities: No clubbing, cyanosis, or edema. Neurologic: Nonfocal. Total time spent discharging the patient was 38 minutes. /LOUIS Voice ID: [id number] Report ID: [id number]
== END 2019-02-27 17:53 | disposition home or self-care (01) | DRG 682 ==
LOC: ER 10:32 → ERHOLD 14:56 → 3RD-ICU 17:14 → 4TH 02-24 21:10
PROVIDERS: ADMIT Family Medicine; ATTEND Family Medicine
PROC: 0DB78ZX Excision of Stomach, Pylorus, Via Natural or Artificial Opening Endoscopic, Diagnostic (ICD-10-PCS; 2019-02-26)
PROC: 0DB68ZX Excision of Stomach, Via Natural or Artificial Opening Endoscopic, Diagnostic (ICD-10-PCS; 2019-02-26)
PROC: 0DB98ZX Excision of Duodenum, Via Natural or Artificial Opening Endoscopic, Diagnostic (ICD-10-PCS; principal; 2019-02-26 11:30)
DX: N17.9 Acute kidney failure, unspecified (principal); K25.4 Chronic or unspecified gastric ulcer with hemorrhage; K26.4 Chronic or unspecified duodenal ulcer with hemorrhage; K57.32 Diverticulitis of large intestine without perforation or abscess without bleeding; E87.2 Acidosis; I95.9 Hypotension, unspecified; E86.1 Hypovolemia; E86.0 Dehydration; K29.80 Duodenitis without bleeding; R11.10 Vomiting, unspecified; E87.5 Hyperkalemia; D64.9 Anemia, unspecified; I12.9 Hypertensive chronic kidney disease with stage 1 through stage 4 chronic kidney disease, or unspecified chronic kidney disease; N18.3 Chronic kidney disease, stage 3 (moderate); I77.89 Other specified disorders of arteries and arterioles; F41.8 Other specified anxiety disorders; R53.1 Weakness; K21.9 Gastro-esophageal reflux disease without esophagitis; K44.9 Diaphragmatic hernia without obstruction or gangrene; I71.2 Thoracic aortic aneurysm, without rupture; N28.1 Cyst of kidney, acquired; K22.2 Esophageal obstruction; F17.210 Nicotine dependence, cigarettes, uncomplicated; Z79.82 Long term (current) use of aspirin; Z88.5 Allergy status to narcotic agent; Z88.0 Allergy status to penicillin
CPT/HCPCS: 36415; 74176; 76770; 80048; 80053; 80076; 81001; 82274; 82550; 82728; 83540; 83690; 84466; 84550; 85025; 85610; 85730; 86850; 86900; 86901; 87493; 88305; 88312; 93005; 97116; 97162; 97530; 99285; C9113; J0360; J0696; J2405; J2704; J7030

== ENCOUNTER 2020-03-18 17:02 | Inpatient (IN) | payer OTHER ==
--- OUTSIDE RECORDS SUMMARY | 2020-03-18 17:05 | XMS REPORT ---
:1940 Author Organization [facility] t Address [address] [place] [address] Care Team Providers Name Role Phone Bladimir JEFFERSON Unavailable Unavailable Problems This patient has no known problems. Allergies, Adverse Reactions, Alerts This patient has no known allergies or adverse reactions. Medications This patient has no known medications. Results Test Description Test Time Test Comments Text Results Atomic Results Result Comments TISSUE EXAM 2018-05-22 09:29:00 Surgical Pathology Re port Case: [id number] Authorizing Provider: Heather Leyva MD Collected: [id number] Ordering Location: [address] Received: 018 0830 Service Pathologist: Jeet Soria MD Specimen: Biopsy, Gastric , raondom bx r/o H PYLORI STOMACH, RANDOM, BIOPSY- N O DIAGNOSTIC ALTERATION- NEGATIVE FOR HE LICOBACTER ON WARTHIN-STARRY STAIN Si seaning Pathologist Direct Phone Line: [phone] b leeding, rule out H. pyloriA. Random gastric biop syThe specimen is received in a formalin-fille d container and labeled with the patient's i nformation and labeled "random gastric biop sy" and consists of four fragments of dao tissue ranging from less than 0.1 to 0.3 cm, submitte d entirely A1. CG/pl Performed. TSH/FREE T4 IF INDICATED 2018-05-19 13:03:00 Test Item Value Reference Range Comments THYROID STIMULATING HORMONE (BEAKER) (test code = 772) 1.13 uIU/ mL 0.35-4.94 BASIC METABOLIC [id number] 12:43:00 Test Item Value Reference Range Comments SODIUM (BEAKER) (test 141 meq/L 136-145 code = 381) POTASSIUM (BEAKER) (test 4.4 meq/L 3.5-5.1 code = 379) CHLORIDE (BEAKER) (test 117 meq/L 98-107 code = 382) CO2 (BEAKER) (test code = 16 meq/L 22-29 355) BLOOD UREA NITROGEN 22 mg/dL 7-21 (BEAKER) (test code = 354) CREATININE (BEAKER) (test 0.95 mg/dL 0.57-1.25 code = 358) GLUCOSE RANDOM (BEAKER) 81 mg/dL 70-105 (test code = 652) CALCIUM (BEAKER) (test 8.7 mg/dL 8.4-10.2 code = 697) EGFR (BEAKER) (test code 69 mL/min/1.73 sq m EST IMATED GFR IS NOT = 1092) ACCURATE CREA TININE CLEARANCE IN PRE DICTING GLOMERULAR FILTR ATION RATE. ESTIMATED GFR IS NOT APPLICABLE F OR DIALYSIS PATIENT S. HEMOGLOBIN AND [id number] 11:34:00 Test Item Value Reference Range Comments HEMOGLOBIN (BEAKER) (test code = 410) 8.9 GM/DL 11.2-15.7 HEMATOCRIT (BEAKER) (test code = 411) 28.7 % 34.1-44.9 POCT-GLUCOSE [id number] 11:29:00 Test Item Value Reference Range Comments POC-GLUCOSE METER (BEAKER) 103 mg/dL 70-110 TESTE D AT [address] (test code = 1538) [place] [id number] POCT-GLUCOSE [id number] 06:18:00 Test Item Value Reference Range Comments POC-GLUCOSE METER (BEAKER) 81 mg/dL 70-110 TESTE D AT [address] (test code = 1538) [place] [id number] HEMOGLOBIN AND [id number] 05:44:00 Test Item Value Reference Range Comments HEMOGLOBIN (BEAKER) (test code = 410) 8.6 GM/DL 11.2-15.7 HEMATOCRIT (BEAKER) (test code = 411) 27.4 % 34.1-44.9 POCT-GLUCOSE [id number] 23:11:00 Test Item Value Reference Range Comments POC-GLUCOSE METER (BEAKER) 91 mg/dL 70-110 [address]E D [address] (test code = 1538) [facility] [address] TROPONIN [id number] 22:21:00 Test Item Value Reference Range Comments TROPONIN I (BEAKER) (test code = 397) 0.03 ng/mL 0.00-0.03 Troponin I (TnI) levels [...] disease, and persistent tachyarrhythmia.B-TYPE NATRIURETIC FACTOR (BNP) 2018-05-18 22:21:00 Test Item Value Reference Range Comments B-TYPE NATRIURETIC PEPTIDE (BEAKER) (test code = 432 pg/mL 0-100 700) HEPATIC FUNCTION [id number] 22:15:00 Test Item Value Reference Range Comments TOTAL PROTEIN (BEAKER) (test code = 770) 6.1 gm/dL 6.0-8.3 ALBUMIN (BEAKER) (test code = 1145) 3.8 g/dL 3.5-5.0 BILIRUBIN TOTAL (BEAKER) (test code = 377) 0.6 mg/dL 0.2-1 .2 BILIRUBIN DIRECT (BEAKER) (test code = 706) 0.3 mg/dL 0.1- 0.5 ALKALINE PHOSPHATASE (BEAKER) (test code = 346) 164 U/L 40-150 AST (SGOT) (BEAKER) (test code = 353) 24 U/L 5-34 ALT (SGPT) (BEAKER) (test code = 347) 18 U/L 6-55 BASIC METABOLIC [id number] 22:15:00 Test Item Value Reference Range Comments SODIUM (BEAKER) (test 141 meq/L 136-145 code = 381) POTASSIUM (BEAKER) (test 4.6 meq/L 3.5-5.1 code = 379) CHLORIDE (BEAKER) (test 117 meq/L 98-107 code = 382) CO2 (BEAKER) (test code = 14 meq/L 22-29 355) BLOOD UREA NITROGEN 32 mg/dL 7-21 (BEAKER) (test code = 354) CREATININE (BEAKER) (test 1.14 mg/dL 0.57-1.25 code = 358) GLUCOSE RANDOM (BEAKER) 90 mg/dL 70-105 (test code = 652) CALCIUM (BEAKER) (test 8.6 mg/dL 8.4-10.2 code = 697) EGFR (BEAKER) (test code 56 mL/min/1.73 sq m EST IMATED GFR IS NOT = 1092) ACCURATE CREA TININE CLEARANCE IN PRE DICTING GLOMERULAR FILTR ATION RATE. ESTIMATED GFR IS NOT APPLICABLE F OR DIALYSIS PATIENT S. [id number] 22:06:00 Test Item Value Reference Range Comments PROTIME (BEAKER) (test code = 759) 16.5 seconds 11.7-14.7 INR (BEAKER) (test code = 370) 1.3 <=5.9 PARTIAL THROMBOPLASTIN TIME (BEAKER) (test code 30.0 seconds 22.5-36.0 = 760) RECOMMENDED COUMADIN/WARFARIN INR THERAPY RANGESSTANDARD DOSE: 2.0 - 3.0 Includes: PROPHYLAXIS forvenous thrombosis, systemic embolization; TREATMENT for venous thrombosis and/or pulmonary embolus.HIGH RISK: Target INR is 2.5-3.5 for patients with mechanical heart valves.CBC W/PLT COUNT & AUTO DIFFERENTIAL 2018-05-18 22:00:00 Test Item Value Reference Range Comments WHITE BLOOD CELL COUNT (BEAKER) (test code = 7.0 K/ L 3.5 -10.5 775) RED BLOOD CELL COUNT (BEAKER) (test code = 761) 2.78 M/ L 3.93-5.22 HEMOGLOBIN (BEAKER) (test code = 410) 7.4 GM/DL 11.2-15.7 HEMATOCRIT (BEAKER) (test code = 411) 24.0 % 34.1-44.9 MEAN CORPUSCULAR VOLUME (BEAKER) (test code = 86.3 fL 79 .4-94.8 753) MEAN CORPUSCULAR HEMOGLOBIN (BEAKER) (test code 26.6 pg 25.6-32.2 = 751) MEAN CORPUSCULAR HEMOGLOBIN CONC (BEAKER) (test 30.8 GM/DL 32.2-35.5 code = 752) RED CELL DISTRIBUTION WIDTH (BEAKER) (test code 17.2 % 11.7-14.4 = 412) PLATELET COUNT (BEAKER) (test code = 756) 256 K/CU MM 150-45 0 MEAN PLATELET VOLUME (BEAKER) (test code = 754) 10.8 fL 9.4-12.3 NUCLEATED RED BLOOD CELLS (BEAKER) (test code = 1 /100 WBC 0-0 413) NEUTROPHILS RELATIVE PERCENT (BEAKER) (test code 67 % = 429) LYMPHOCYTES RELATIVE PERCENT (BEAKER) (test code 20 % = 430) MONOCYTES RELATIVE PERCENT (BEAKER) (test code = 11 % 431) EOSINOPHILS RELATIVE PERCENT (BEAKER) (test code 2 % = 432) BASOPHILS RELATIVE PERCENT (BEAKER) (test code = 0 % 437) NEUTROPHILS ABSOLUTE COUNT (BEAKER) (test code = 4.70 K/ L 1.56-6.13 670) LYMPHOCYTES ABSOLUTE COUNT (BEAKER) (test code = 1.37 K/ L 1.18-3.74 414) MONOCYTES ABSOLUTE COUNT (BEAKER) (test code = 0.79 K/ L 0 .24-0.36 415) EOSINOPHILS ABSOLUTE COUNT (BEAKER) (test code = 0.15 K/ L 0.04-0.36 416) BASOPHILS ABSOLUTE COUNT (BEAKER) (test code = 0.02 K/ L 0 .01-0.08 417) IMMATURE GRANULOCYTES-RELATIVE PERCENT (BEAKER) 0 % 0-1 (test code = 2801)
[2020-03-18] MEDS ORDERED: NA CHLORIDE 0.9% 500 ML ONE (17:36)
[2020-03-18 18:05] LABS: Basophils % 0.4 % (0-1.3); Hematocrit 36.7 % (36.0-45.0); Lymphocytes % 9.8 % (15.3-44.8); RBC Red Blood Cell Count 3.85 M/uL (3.86-4.86)
--- NOTE | 2020-03-18 18:05 | RAD REPORT ---
EXAM DESCRIPTION: [facility] Single View03/18/2020 5:47 pm CLINICAL HISTORY: Chest pain COMPARISON: 2016 FINDINGS: The lungs appear clear of acute infiltrate. The heart is mildly enlarged. Aorta is tortuous/ectatic IMPRESSION: No acute abnormalities displayed
[2020-03-18 18:18] LABS: ALT/SGPT 16 U/L (12-78); AST/SGOT 18 U/L (15-37); Albumin 3.4 g/dL (3.4-5.0); Alkaline Phosphatase 217 U/L (45-117); BUN Blood Urea Nitrogen 80 mg/dL (7-18); Bicarbonate 16 mmol/L (21-32); Bilirubin Direct 0.1 mg/dL (0-0.2); Bilirubin Total 0.3 mg/dL (0.2-1.0); Glucose Level 112 mg/dL (74-106); Potassium 5.3 mmol/L (3.5-5.1); Protein, Total 7.3 g/dL (6.4-8.2); Sodium Level 138 mmol/L (136-145); Troponin (Emerg Dept Use Only) < 0.02 ng/mL (0.0-0.045)
--- NOTE | 2020-03-18 18:47 | RAD REPORT ---
EXAM DESCRIPTION: CT - Abdomen Pelvis Wo Contrast - 03/18/2020 6:24 pm CLINICAL HISTORY: Abdominal pain COMPARISON: 2019 TECHNIQUE: Computed axial tomography of the abdomen and pelvis was obtained. IV and oral contrast we re not requested. All CT scans are performed using dose optimization technique as appropriate and may include automated exposure control or mA/KV adjustment according to patient size. FINDINGS: The evaluation of solid organs, vessels and bowel is limited secondary to the lack of con trast administration. The liver, pancreas, and adrenals appear grossly normal. Splenectomy Multiple, bilateral renal cysts without significant change. Small to moderate hiatal hernia. Aorto bi femoral graft.Spondylosis involves the lumbar spine resulti ng in spinal stenosis 3.8 centimeter descending thoracic aortic aneurysm unchanged Small gallstone. 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 Paget's disease involves the right hemipelvis. IMPRESSION: Cholelithiasis without cholecystitis
--- NOTE | 2020-03-18 18:55 | ER ---
Nurse's Notes [facility] Name: Safia Christensen Age: 79 yrs Sex: Female : 1940 Arrival Date: 03/18/2020 Time: 17:05 Bed 7 Private MD: Diagnosis: Acute Renal Failure, Dehydration, weakness Presentation: 03/18 17:06 Chief complaint: Patient states: v/d started Monday. Denies abd pain. Coronavirus sv screen: Proceed with normal triage. Patient denies a cough. Patient denies shortness of breath or difficulty breathing. Patient denies measured and/or subjective temperature greater than 100.4F prior to today's visit. Patient denies travel on a cruise ship or to a country the [facility] currently lists as an affected area. Patient denies contact with known and/or suspected case of COVID-19. Ebola Screen: No symptoms or risks identified at this time. Risk Assessment: Do you want to hurt yourself or someone else? Patient reports no desire to harm self or others. Onset of symptoms was March 16, 2020. 17:06 Method Of Arrival: Wheelchair sv 17:06 Acuity: DARSHAN 2 sv 17:06 Initial Sepsis Screen: Does the patient meet any 2 criteria? Systolic BP < 90 mmHg. HR sv > 90 bpm. Yes Does the patient have a suspected source of infection? No. Patient's initial sepsis screen is negative. Triage Assessment: 17:10 General: Appears in no apparent distress. comfortable, Behavior is calm, cooperative, sv appropriate for age. Pain: Denies pain. Neuro: Level of Consciousness is awake, alert, obeys commands. Respiratory: Respiratory effort is even, unlabored. GI: Reports nausea, vomiting, Patient currently denies abdominal pain. Historical: - Allergies: 17:08 PENICILLINS; sv 17:08 Iodine; sv 17:08 Codeine; sv - PMHx: 17:08 Arthritis; High Cholesterol; Hypertension; sv - PSHx: 17:08 Hysterectomy; sv - Immunization history:: Flu vaccine is up to date. - Social history:: Smoking status: Patient reports the use of cigarette tobacco products, denies chronic smoking, but will smoke occasionally. Screenin:49 Abuse screen: Denies threats or abuse. Denies injuries from another. Nutritional ls4 screening: No deficits noted. Tuberculosis screening: No symptoms or risk factors identified. Fall Risk None identified. Assessment: 18:50 General: Appears in no apparent distress. comfortable, Behavior is calm, cooperative. ls4 Neuro: Level of Consciousness is awake, alert, obeys commands, Oriented to person, place, time, situation. Respiratory: Airway is patent Respiratory effort is even, unlabored, Respiratory pattern is regular. GI: Abdomen is flat, non-distended, obese, Bowel sounds present X 4 quads. Abd is soft and non tender X 4 quads. Reports nausea. : No deficits noted. No signs and/or symptoms were reported regarding the genitourinary system. Derm: No deficits noted. Musculoskeletal: No deficits noted. 19:30 Reassessment: Patient appears in no apparent distress at this time. Patient is alert, lp1 oriented x 3, equal unlabored respirations, skin warm/dry/pink. Patient denies any N/V at this time Patient denies pain at this time. 20:24 Reassessment: Jes daughter of the patient called and updated for the plan of care. rr5 20:45 Reassessment: Patient appears in no apparent distress at this time. Patient and/or lp1 family updated on plan of care and expected duration. Pain level reassessed. Patient aware of pending admission. Vital Signs: 17:06 BP 79 / 50; Pulse 92; Resp 16; Temp 98; Pulse Ox 98% ; Weight 70.31 kg; Height 5 ft. 4 sv in. (162.56 cm); 19:42 BP 104 / 56 LA Supine (auto/pedi); Pulse 88 MON; Pulse Ox 97% on R/A; ds4 19:45 BP 118 / 62 LA Sitting (auto/pedi); Pulse 94 MON; Pulse Ox 97% on R/A; ds4 19:48 BP 115 / 67 LA Standing (auto/pedi); Pulse 100 MON; Pulse Ox 97% on R/A; ds4 20:30 BP 108 / 51; Pulse 94; Resp 18; Temp 99.3(O); Pulse Ox 98% on R/A; Pain 0/10; lp1 17:06 Body Mass Index 26.61 (70.31 kg, 162.56 cm) sv ED Course: 17:05 Patient arrived in ED. ag5 17:08 Triage completed. sv 17:08 Arm band placed on. sv 17:16 Rittger, Adrian, MD is Attending Physician. kdr 17:26 Ina Mccormick, RN is Primary Nurse. ls4 17:48 XRAY Chest (1 view) In Process Unspecified. EDMS 18:24 CT Abd/Pelvis - Without Contrast In Process Unspecified. EDMS 18:49 Patient has correct armband on for positive identification. Bed in low position. Call ls4 light in reach. Side rails up X 1. 18:49 No provider procedures requiring assistance completed. Initial lab(s) drawn, by ks, ls4 sent to lab. Inserted saline lock: 18 gauge in right antecubital area, using aseptic technique. Blood collected. Patient maintains SpO2 saturation greater than 95% on room air. 18:52 Mariusz Short MD is Hospitalizing Provider. kdr 19:30 Straight cath inserted, using sterile technique, 14 Fr. Specimen obtained. lp1 20:43 Patient admitted, IV remains in place. lp1 Administered Medications: 20:00 Drug: NS 0.9% 500 ml Route: IV; Rate: bolus; Site: right forearm; lp1 21:15 Follow up: IV Status: Completed infusion; IV Intake: 500ml lp1 Intake: 21:15 IV: 500ml; Total: 500ml. lp1 Outcome: 18:54 Decision to Hospitalize by Provider. kdr 20:38 Condition: stable lp1 20:38 Instructed on the need for admit. 21:00 Admitted to Med/surg room 201, with chart, Report called to Deb Khanna RN lp1 21:30 Patient left the ED. lp1 Signatures: Dispatcher [employer] EDOR Deb Noriega RN RN sv Rittger, Kevin, MD MD kdr Ballard, Brenda, RN RN bb Melissa Wills, RN RN lp1 Tod Lorenz ds4 Ina Mccormick, RN RN ls4 Spenser Bahena RN RN rr5 Sherice Arias 5 Corrections: (The following items were deleted from the chart) 17:10 17:06 70.31 kg; Height 5 ft. 4 in.; BMI: 26.6; sv sv 17:11 17:06 Acuity: DARSHAN 3 sv sv 17:11 17:06 Pulse 92bpm; Resp 16bpm; Pulse Ox 98%; Temp 98F; 70.31 kg; Height 5 ft. 4 in.; sv BMI: 26.6; sv 20:43 17:35 NS 0.9% 500 ml IV at bolus in right forearm ls4 lp1 03/19 00:17 03/18 21:48 Patient left the ED. bb lp1
--- NOTE | 2020-03-18 18:55 | EDPHYS ---
Physician Documentation [facility] Name: Safia Christensen Age: 79 yrs Sex: Female : 1940 Arrival Date: 03/18/2020 Time: 17:05 Bed 7 Private MD: ED Physician Adrian Reza HPI: 03/18 17:51 This 79 yrs old Black Female presents to ER via Wheelchair with complaints of kdr Nausea/Vomiting, Decreased Appetite. 17:51 The patient presents to the emergency department with vomiting, that is intermittent. kdr Onset: The symptoms/episode began/occurred Last Monday - has not had much of an appetite since. She stated that she had a dream on Monday that she was dying and since then, she has had poor appetite and PO intake - generally getting weak and slightly light headed. Possible causes: unknown. The symptoms are aggravated by movement, Getting up The symptoms are alleviated by remaining still. Associated signs and symptoms: Pertinent positives: abdominal pain, anorexia, vomiting, Pertinent negatives: belching, constipation, diarrhea, dysuria, fever, flatulence, GI bleeding, hematuria, vaginal discharge. Severity of symptoms: At their worst the symptoms were mild moderate in the emergency department the symptoms are unchanged. The patient has not experienced similar symptoms in the past. The patient has not recently seen a physician. Historical: - Allergies: 17:08 PENICILLINS; sv 17:08 Iodine; sv 17:08 Codeine; sv - PMHx: 17:08 Arthritis; High Cholesterol; Hypertension; sv - PSHx: 17:08 Hysterectomy; sv - Immunization history:: Flu vaccine is up to date. - Social history:: Smoking status: Patient reports the use of cigarette tobacco products, denies chronic smoking, but will smoke occasionally. ROS: 17:51 Constitutional: Negative for fever, chills, and weight loss, Eyes: Negative for injury, kdr pain, redness, and discharge, ENT: Negative for injury, pain, and discharge, Neck: Negative for injury, pain, and swelling, Cardiovascular: Negative for chest pain, palpitations, and edema, Respiratory: Negative for shortness of breath, cough, wheezing, and pleuritic chest pain, Back: Negative for injury and pain, : Negative for injury, bleeding, discharge, and swelling, MS/Extremity: Negative for injury and deformity, Skin: Negative for injury, rash, and discoloration, Neuro: Negative for headache, weakness, numbness, tingling, and seizure activity. Psych: Negative for depression, anxiety, suicide ideation, homicidal ideation, and hallucinations, Allergy/Immunology: Negative for hives, rash, and allergies, Endocrine: Negative for neck swelling, polydipsia, polyuria, polyphagia, and marked weight changes, Hematologic/Lymphatic: Negative for swollen nodes, abnormal bleeding, and unusual bruising. 17:51 Abdomen/GI: Positive for abdominal pain, vomiting, anorexia, Negative for diarrhea, constipation, abdominal cramps, black/tarry stool, rectal pain, rectal bleeding, bowel incontinence. Exam: 17:51 Constitutional: This is a well developed, well nourished patient who is awake, alert, kdr and in no acute distress. Head/Face: Normocephalic, atraumatic. Eyes: Pupils equal round and reactive to light, extra-ocular motions intact. Lids and lashes normal. Conjunctiva and sclera are non-icteric and not injected. Cornea within normal limits. Periorbital areas with no swelling, redness, or edema. Neck: Trachea midline, no thyromegaly or masses palpated, and no cervical lymphadenopathy. Supple, full range of motion without nuchal rigidity, or vertebral point tenderness. No Meningismus. Chest/axilla: Normal chest wall appearance and motion. Nontender with no deformity. No lesions are appreciated. Cardiovascular: Regular rate and rhythm with a normal S1 and S2. No gallops, murmurs, or rubs. Normal PMI, no JVD. No pulse deficits. Respiratory: Lungs have equal breath sounds bilaterally, clear to auscultation and percussion. No rales, rhonchi or wheezes noted. No increased work of breathing, no retractions or nasal flaring. Back: No spinal tenderness. No costovertebral tenderness. Full range of motion. Skin: Warm, dry with normal turgor. Normal color with no rashes, no lesions, and no evidence of cellulitis. MS/ Extremity: Pulses equal, no cyanosis. Neurovascular intact. Full, normal range of motion. Neuro: Awake and alert, GCS 15, oriented to person, place, time, and situation. Cranial nerves II-XII grossly intact. Motor strength 5/5 in all extremities. Sensory grossly intact. Cerebellar exam normal. Normal gait. Psych: Awake, alert, with orientation to person, place and time. Behavior, mood, and affect are within normal limits. 17:51 Abdomen/GI: Inspection: obese Bowel sounds: diminished, in all quadrants, Palpation: soft, mild abdominal tenderness, in the right lower quadrant and left lower quadrant. Vital Signs: 17:06 BP 79 / 50; Pulse 92; Resp 16; Temp 98; Pulse Ox 98% ; Weight 70.31 kg; Height 5 ft. 4 sv in. (162.56 cm); 19:42 BP 104 / 56 LA Supine (auto/pedi); Pulse 88 MON; Pulse Ox 97% on R/A; ds4 19:45 BP 118 / 62 LA Sitting (auto/pedi); Pulse 94 MON; Pulse Ox 97% on R/A; ds4 19:48 BP 115 / 67 LA Standing (auto/pedi); Pulse 100 MON; Pulse Ox 97% on R/A; ds4 20:30 BP 108 / 51; Pulse 94; Resp 18; Temp 99.3(O); Pulse Ox 98% on R/A; Pain 0/10; lp1 17:06 Body Mass Index 26.61 (70.31 kg, 162.56 cm) sv MDM: 17:51 Data reviewed: vital signs, nurses notes, lab test result(s), radiologic studies. kdr Counseling: I had a detailed discussion with the patient and/or guardian regarding: the historical points, exam findings, and any diagnostic results supporting the discharge/admit diagnosis, lab results, radiology results, the need for outpatient follow up. 18:54 Patient medically screened. kdr 03/18 17:28 Order name: Basic Metabolic Panel; Complete Time: 18:50 kdr 03/18 17:28 Order name: CBC with Diff; Complete Time: 18:50 kdr 03/18 17:28 Order name: LFT's; Complete Time: 18:50 kdr 03/18 17:28 Order name: Magnesium; Complete Time: 18:50 kdr 03/18 17:28 Order name: Troponin (emerg Dept Use Only); Complete Time: 18:50 kdr 03/18 17:28 Order name: Procalcitonin; Complete Time: 18:50 kdr 03/18 17:28 Order name: Lactate; Complete Time: 18:50 kdr 03/18 19:59 Order name: CBC with Automated Diff [facility] 03/18 19:59 Order name: CBC with Automated Diff [facility] 03/18 19:59 Order name: Comprehensive Metabolic Panel [facility] 03/18 19:59 Order name: Comprehensive Metabolic Panel [facility] 03/18 19:59 Order name: Protime (+INR) [facility] 03/18 19:59 Order name: Protime (+INR) [facility] 03/18 19:59 Order name: PTT, Activated Partial Thromb [facility] 03/18 17:28 Order name: XRAY Chest (1 view); Complete Time: 18:50 kdr 03/18 17:28 Order name: EKG; Complete Time: 17:29 kdr 03/18 17:28 Order name: Cardiac monitoring; Complete Time: 17:46 kdr 03/18 17:28 Order name: EKG - Nurse/Tech; Complete Time: 18:09 kdr 03/18 18:10 Order name: CT Abd/Pelvis - Without Contrast; Complete Time: 18:50 kdr 03/18 19:59 Order name: CONS Pharmacy Consult [facility] 03/18 19:59 Order name: CONS Physician Consult [facility] 03/18 19:59 Order name: Renal [facility] 03/18 19:59 Order name: PTT, Activated Partial Thromb [facility] 03/18 20:00 Order name: Urine Dipstick--Ancillary (enter results) ar5 03/18 20:01 Order name: Echo with Doppler [facility] 03/18 20:01 Order name: NT PRO-BNP [facility] 03/18 20:01 Order name: NT PRO-BNP [facility] 03/18 20:01 Order name: Renal Ultrasound-Complete [facility] 03/18 20:32 Order name: Urine Dipstick-Ancillary [facility] 03/18 17:28 Order name: IV Saline Lock; Complete Time: 18:09 kdr 03/18 17:28 Order name: Labs collected and sent; Complete Time: 18:09 kdr 03/18 17:28 Order name: O2 Per Protocol; Complete Time: 18:09 kdr 03/18 17:28 Order name: O2 Sat Monitoring; Complete Time: 18:09 kdr 03/18 17:28 Order name: Urine Dipstick-Ancillary (obtain specimen); Complete Time: 19:59 kdr 03/18 17:38 Order name: Orthostatic Blood Pressure; Complete Time: 19:59 kdr Administered Medications: 20:00 Drug: NS 0.9% 500 ml Route: IV; Rate: bolus; Site: right forearm; lp1 21:15 Follow up: IV Status: Completed infusion; IV Intake: 500ml lp1 Disposition: 03/18/20 18:54 Hospitalization ordered by Mariusz Short for Inpatient Admission. Preliminary diagnosis is Acute Renal Failure, Dehydration, weakness. - Bed requested for Telemetry/MedSurg (Inpatient). - Status is Inpatient Admission. bb - Condition is Fair. - Problem is an acute exacerbation. - Symptoms are unchanged. Signatures: Dispatcher [employer] EDDeb Gallardo, RN RN sv Adrian Reza MD MD kdr Jessi Sosa RN RN bb Melissa Wills RN RN lp1 Ina Mccormick RN RN ls4 Corine Mayer ar5 Corrections: (The following items were deleted from the chart) 20:34 18:54 Hospitalization Ordered by Mariusz Short MD for Inpatient Admission. Preliminary ar5 diagnosis is Acute Renal Failure, Dehydration, weakness. Bed requested for Telemetry/MedSurg (Inpatient). Status is Inpatient Admission. Condition is Fair. Problem is an acute exacerbation. Symptoms are unchanged. kdr 21:48 20:34 03/18/2020 18:54 Hospitalization Ordered by Mariusz Short MD for Inpatient bb Admission. Preliminary diagnosis is Acute Renal Failure, Dehydration, weakness. Bed requested for Telemetry/MedSurg (Inpatient). Status is Inpatient Admission. Condition is Fair. Problem is an acute exacerbation. Symptoms are unchanged. ar5
[2020-03-18] MEDS ORDERED: ONDANSETRON 4 MG/2 ML VIAL IV PRN (19:56)
[2020-03-18] MEDS ORDERED: ACETAMINOPHEN 500 MG TAB PO PRN (19:56)
[2020-03-18] MEDS ORDERED: MORPHINE 2 MG/ML SYR IV PRN (19:56)
[2020-03-18 20:31] LABS: Urine Blood NEGATIVE (NEG); Urine Glucose NEGATIVE (NEG); Urine Protein 2+ (NEG); Urine Specific Gravity >1.030 (1.005-1.030); Urine pH 5.5 (5.0-7.0)
[2020-03-18] MEDS: NA CHLORIDE 0.9% 1,000 ML IV SCH (22:33)
[2020-03-19 05:07] LABS: Absolute Lymphocytes (CBC) 1.4 K/uL (0.7-4.9); Basophils % 0.3 % (0-1.3); Hematocrit 33.8 % (36.0-45.0); Lymphocytes % 12.5 % (15.3-44.8); MPV 9.5 fL (7.6-11.3); RBC Red Blood Cell Count 3.56 M/uL (3.86-4.86)
[2020-03-19 05:14] LABS: Protime INR 1.1
[2020-03-19 05:37] LABS: Bilirubin Total 0.3 mg/dL (0.2-1.0); Potassium 5.8 mmol/L (3.5-5.1); Protein, Total 6.6 g/dL (6.4-8.2)
[2020-03-19] MEDS: NA CHLORIDE 0.9% 1,000 ML IV SCH (05:51)
[2020-03-19] MEDS ORDERED: D50W 25 GM/50 ML SYRINGE/VIAL IV ONE (05:57)
[2020-03-19] MEDS ORDERED: D50W 25 GM/50 ML SYRINGE/VIAL IV PRN (05:57)
[2020-03-19] MEDS ORDERED: GLUCAGON 1 MG/VIAL IM PRN (05:57)
[2020-03-19] MEDS ORDERED: INSULIN -REGULAR HUMAN 50 UNIT/0.5 ML ML IV ONE (05:58)
[2020-03-19] MEDS ORDERED: NA CHLORIDE 0.9% 250 ML IV ONE (05:59)
[2020-03-19] MEDS ORDERED: FUROSEMIDE 20 MG/ 2ML VIAL IV ONE (05:59)
[2020-03-19] MEDS ORDERED: SODIUM BICARB 50 MEQ/50ML VIAL IV ONE (07:30)
--- NOTE | 2020-03-19 07:39 | P.HP ---
Certification for Inpatient Patient admitted to: Inpatient With expected LOS: >2 Midnights Patient will require the following post-hospital care: None Practitioner: I am a practitioner with admitting privileges, knowledge of patient current condition, hospital course, and medical plan of care. Services: Services provided to patient in accordance with Admission requirements found in Title 42 Section 412.3 of the Code of Federal Regulations Patient History Date of Service: 03/18/20 Reason for admission: Acute kidney injury History of Present Illness: Patient is a 79-year-old female who presents to the hospital with severe dehydration. Patient apparently has not been eating or drinking like she normally does. Patient was found to have acute kidney injury. Patient BUN and creatinine was significantly elevated. Patient had a similar episode a year ago. At that time patient's BUN and creatinine was also significantly elevated. patient be admitted to the hospital for hydration. It does not appear patient is on any diuretics. It appears she is just not taking in enough fluids. Will need to clinical mental health counselor her regarding this going forward. Allergies codeine Allergy (Verified 07/26/16 14:37) unknown iodine Allergy (Verified 07/26/16 14:37) unknown Penicillins Allergy (Verified 07/26/16 14:37) unknown Iodine-Iodine Containing Allergy (Uncoded 07/26/16 14:37) Unknown IODINE; IODINE CONTAINING Allergy (Uncoded 07/26/16 14:37) Unknown No Known Allergy (Uncoded 05/18/18 16:49) Unknown No Known Aller Allergy (Uncoded 08/02/16 20:00) Unknown Home Medications: Citalopram [Celexa*] 5 mg PO DAILY #30 tablet 06/15/16 Memantine HCl [Namenda*] 5 mg PO BID #60 tablet 06/15/16 Rosuvastatin [Crestor*] 20 mg PO BEDTIME #30 tab 06/15/16 Clopidogrel Bisulfate [Plavix*] 75 mg PO DAILY 02/22/19 Aspirin 81 mg PO DAILY 02/23/19 Hydralazine HCl [Apresoline] 50 mg PO TID 02/23/19 Pantoprazole [Protonix Tab*] 40 mg PO DAILY 02/23/19 lisinopriL [Prinivil*] 20 mg PO BID 02/23/19 Nebivolol HCl [Bystolic*] 10 mg PO DAILY 03/18/20 - Past Medical/Surgical History Has patient received pneumonia vaccine in the past: No Diabetic: No -: HTN -: Hyperlipidemia -: GERD with hiatal hernia -: History of esophageal stenosis -: Depression with anxiety -: Anemia -: History of left renal cyst -: Chronic kidney disease -: Severe lumbar spinal stenosis -: 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 She has a large extended family. - Family History Father Medical History: Seizures Mother Medical History: Heart disease, Hypertension, Cancer - Social History Smoking Status: Current every day smoker Alcohol use: No CD- Drugs: No Caffeine use: Yes Place of Residence: Home Review of Systems 10-point ROS is otherwise unremarkable Physical Examination - Vital Signs Temperature: 98.2 F Blood Pressure: 146/65 Pulse: 100 Respirations: 16 Pulse Ox (%): 94 - Physical Exam General: Alert, In no apparent distress, Oriented x3 HEENT: Atraumatic, PERRLA, Mucous membr. moist/pink, EOMI, Sclerae nonicteric Neck: Supple, 2+ carotid pulse no bruit, No LAD, Without JVD or thyroid abnormality Respiratory: Clear to auscultation bilaterally, Normal air movement Cardiovascular: Regular rate/rhythm, Normal S1 S2, No murmurs Gastrointestinal: Normal bowel sounds, Soft and benign, Non-distended, No tenderness, No rebound, No guarding Musculoskeletal: No clubbing, No swelling, No tenderness Integumentary: Other (Decreased skin turgor) Neurological: Normal gait, Normal speech, Normal strength at 5/5 x4 extr, Normal tone, Sensation intact, Cranial nerves 3-12 intact, Normal affect Lymphatics: No axilla or inguinal lymphadenopathy - Studies Laboratory Data (last 24 hrs) 03/18/20 17:42: WBC 10.2, Hgb 11.8 L, Hct 36.7, Plt Count 259 03/18/20 17:42: Sodium 138, Potassium 5.3 H, BUN 80 H D, Creatinine 3.11 H D, Glucose 112 H, Magnesium 2.0, Total Bilirubin 0.3, AST 18, ALT 16, Alkaline Phosphatase 217 H Assessment & Plan - Problems (Diagnosis) (1) Severe dehydration Current Visit: Yes Status: Acute (2) Acute kidney injury Current Visit: Yes Status: Acute (3) Depression Current Visit: No Status: Acute Qualifiers: (4) Dementia Onset Date: 07/27/16 Current Visit: No Status: Chronic Qualifiers: (5) Hypertension Onset Date: 07/27/16 Current Visit: No Status: Chronic Qualifiers: (6) Hyperkalemia Onset Date: 06/06/16 Current Visit: No Status: Resolved - Plan Plan: 1. Patient be hydrated aggressively 2. Monitor hemodynamics closely 3. Monitor potassium and BUN and creatinine 4. Continue with antidepressant and dementia medication 5. Monitor blood pressure closely 6. Continue statin therapy 7. GI and DVT prophylaxis Discharge Plan: Home Plan to discharge in: Greater than 2 days - Advance Directives Does patient have a Living Will: No Does patient have a Durable POA for Healthcare: No - Code Status/Comfort Care Code Status Assessed: Yes Code Status: Full Code Critical Care: No Time Spent Managing PTS Care (In Minutes): 45
[2020-03-19] MEDS ORDERED: ALBUTEROL 2.5 MG/3 ML NEB SOL NEB ONE (07:56)
--- NOTE | 2020-03-19 07:59 | EKG ---
Test Date: 2020-03-18 Test Time: 18:16:21 Brass Molder: JOSÉ MEASUREMENT RESULTS: Intervals: Rate: 89 IL: 174 QRSD: 92 QT: 368 QTc: 447 [place]: P: 21 IL: 174 QRS: -38 T: 54 INTERPRETIVE STATEMENTS: Normal sinus rhythm with sinus arrhythmia Left axis deviation Voltage criteria for left ventricular hypertrophy Inferior infarct, age undetermined Abnormal ECG Compared to ECG 02/22/2019 10:59:30 Left-axis deviation now present Myocardial infarct finding now present T-wave abnormality no longer present Electronically Signed On 03-19-20 07:58:20 CDT by Nathaniel Grajeda
[2020-03-19] MEDS ORDERED: SOD POLYSTYREN SUL 15 GM/60 ML UCUP PO ONE (08:00)
[2020-03-19] MEDS: D5 0.45 NS 1,000 ML IV SCH ×2 (08:39→21:13)
[2020-03-19 08:46] LABS: CKMB Creatine Kinase MB 1.3 ng/mL (0.3-3.6); Thyroid Stimulating Hormone 0.903 uIU/mL (0.360-3.740); Uric Acid 7.5 mg/dL (2.6-6.0)
[2020-03-19] MEDS: PANTOPRAZOLE 40MG TABLET PO SCH (08:46)
[2020-03-19] MEDS: MEMANTINE HCL 10 MG TABLET PO SCH ×2 (08:46→21:13)
[2020-03-19] MEDS: CITALOPRAM 10 MG TABLET PO SCH (08:47)
[2020-03-19] MEDS: CLOPIDOGREL 75 MG TABLET PO SCH (08:47)
[2020-03-19] MEDS: NEBIVOLOL HCL 5 MG TAB PO SCH (08:47)
[2020-03-19] MEDS: ASPIRIN 81 MG CHEWABLE TABLET PO SCH (08:48)
[2020-03-19] MEDS ORDERED: NEBIVOLOL HCL 5 MG TAB PO SCH (09:00)
--- NOTE | 2020-03-19 11:02 | RAD REPORT ---
EXAM DESCRIPTION: US - Renal Ultrasound-Complete - 03/19/2020 7:16 am CLINICAL HISTORY: JASON Flank pain COMPARISON: Renal Ultrasound-Complete dated 02/22/2019 FINDINGS: Both kidneys are mildly echogenic. The right kidney measures 10.2 x 5.9 x 5.1 cm. Multiple benign appearing stable renal cysts. No hydro nephrosis. The left kidney measures 10.7 x 5.0 x 4.7 cm. Multiple benign-appearing stable renal cysts. No hydron ephrosis. The urinary bladder is incompletely distended without gross abnormality seen. IMPRESSION: Mildly echogenic kidneys bilaterally compatible with medical renal disease. Multiple benign bilateral renal cysts, unchanged.
--- NOTE | 2020-03-19 12:18 | P.PN ---
Subjective Date of Service: 03/19/20 Chief Complaint: Acute kidney injury Subjective: Improving Physical Examination - Vital Signs Temperature: 99.2 F Blood Pressure: 146/65 Pulse: 100 Respirations: 18 Pulse Ox (%): 96 - Physical Exam General: Alert, In no apparent distress, Oriented x3, Cooperative HEENT: Atraumatic Neck: Supple Respiratory: Clear to auscultation bilaterally, Normal air movement Cardiovascular: Normal pulses, Regular rate/rhythm Gastrointestinal: Normal bowel sounds, Soft and benign, Non-distended Integumentary: No tenderness/swelling, No erythema, No warmth, No cyanosis Neurological: Normal speech, Normal strength at 5/5 x4 extr, Normal tone, Normal affect - Studies Laboratory Data (last 24 hrs) 03/18/20 17:42: WBC 10.2, Hgb 11.8 L, Hct 36.7, Plt Count 259 03/18/20 17:42: Sodium 138, Potassium 5.3 H, BUN 80 H D, Creatinine 3.11 H D, Glucose 112 H, Magnesium 2.0, Total Bilirubin 0.3, AST 18, ALT 16, Alkaline Phosphatase 217 H Medications List Reviewed: Yes Assessment & Plan Discharge Plan: Home Plan to discharge in: 24 Hours Physician Review Additional Text: Impression: Acute on chronic renal disease stage 2 with hyperkalemia likely with underlying dehydration Hypertension Anemia of chronic disease Cholelithiasis without cholecystitis 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 Patient given medication for hyperkalemia. Nephrology to further monitor and adjust medication. Anticipate improvement over the next 24 hr. Hypertension: Will adjust medication. Anemia of chronic disease: Will monitor closely. Cholelithiasis without cholecystitis: Overall stable. This can be addressed as an outpatient. 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 GERD with hiatal hernia: Will provide medication. Diabetes mellitus type 2 insulin-dependent.: Continue medication. Will monitor and adjust appropriately. CAD: Continue medication. Time Spent Managing Pts Care (In Minutes): 55
[2020-03-19 12:25] LABS: Urine Protein/Creatinine Ratio 0.41 ratio (<0.15)
[2020-03-19 12:43] LABS: Potassium 4.4 mmol/L (3.5-5.1)
--- NOTE | 2020-03-19 13:03 | CON ---
Date of Consultation: 03/19/2020 Reason For Consultation: Hyperkalemia, elevated BUN and creatinine. History Of Present Illness: This is a pleasant 79-year-old female, well known to me from the office with significant past medical history of hypertension; coronary artery disease, status post NC/PTCA b ack in September 2013; carotid stenosis; hyperlipidemia; chronic kidney disease, baseline creatinine a round 1.4 early this month with GFR of 43. Patient was in her regular state of health. Yesterday, ke nunez saw her in virtual visit. She was complaining of feeling weak, epigastric pain, not eating, and lo sing balance. Her lab did not show any abnormality, but with her symptoms saying she is not eating, not drinking. We directed her to the emergency room. Upon arrival to the emergency room, her creati nine was 3 jump up from 1.4 one week ago with GFR dropped to 17 from 43 one week ago. Patient also f ound to have hyperkalemia with potassium 5.8. For that reason, we have been consulted. Patient nikkie ed taking any diuresis. Denied taking any nonsteroidal. No other change in her medication. Patient 's blood pressure was okay. There is no hypotension. Patient was started on IV hydration. Kidney f unction slightly started trending down, patient hyperkalemic further. Patient had the same episode a lmost 1 year ago as a prerenal. Past Medical History: 1.Chronic kidney disease stage 3 secondary to hypertension, nephrosclerosis, renal vascular disease, baseline creatinine 1.4, GFR of 46. 2.Coronary artery disease, status post NC/PTCA back in September 2013. 3.Carotid stenosis, status post endarterectomy back in 2013. 4.Hypertension. 5.Hyperlipidemia. 6.Congestive heart failure. Social History: Denies smoking. Denies drinking. Denies drugs abuse. Family History: Positive for hypertension and coronary artery disease. Allergies: TO PENICILLIN, IODINE, AND CODEINE. Review of Systems: Head and Neck: No red eye. No ear pain. GI: Decreased intake. : No polyuria. No dysuria. No hematuria. 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 Respiratory: No shortness of breath. Cardiovascular: No chest pain. No leg swelling. Endocrine: No polydipsia. Skin: No rash. Neuro: Has losing memory, losing balance. Musculoskeletal: Feeling fatigued. Home Medications: Include citalopram, Namenda, rosuvastatin, Plavix, aspirin, hydralazine 50 t.i.d., lisinopril, pantoprazole, Bystolic. Past Surgical History: 1.Endarterectomy. 2.PTCA. 3.Appendectomy. 4.Hysterectomy. Physical Examination: General: When I saw the patient, patient lying in bed, comfortable, not in any distress. Vital Signs: Blood pressure 146/65, pulse of 100, afebrile. Chest: Clear to auscultation. Heart: S1, S2. Regular. Abdomen: Soft, nontender. Extremities: No edema. Neurologic: Alert. No focal. No tremor. Laboratory Data: Sodium 138, potassium 5.3, bicarb 16, BUN 80, creatinine 3.1, GFR of 17, calcium 8. 9. H and H 11.8/36.7. Today's lab data: Sodium 144, potassium 5.8, bicarb 16, chloride 119, BUN 75 , creatinine 2.5, calcium 8.2. Uric acid 7.5, CPK 189. TSH 0.9. H and H 10.8/33.8. Urinalysis was negative for infection. Specific gravity more than 1.030. PC ratio of 1+2. Current Medications: In the hospital include Plavix, Bystolic, rosuvastatin, citalopram, Namenda. P atient received Lasix and continue on hydration. Assessment And Plan: Acute kidney injury secondary to prerenal superimposed with AMERICA inhibitor compl icated with hyperkalemia and acidosis. 1.I am going to go ahead agreed with holding all diuresis and AMERICA inhibitor. Continue hydration for the time being. We will follow up the workup including repeated chemistry. Patient's obstructive u ropathy has been ruled out as CT was negative. 2.Hypertension with the presence of acute kidney injury. Hold AMERICA inhibitor. Continue hydration an d we will follow up. 3.Hyperkalemia secondary to renal failure/AMERICA inhibitor. Hold AMERICA inhibitor. Start hydration. 4.Congestive heart failure, currently on the dry side. Keep holding all diuresis. We will continue hydration. 5.Cholelithiasis, no cholecystitis as by primary. 6.Acidosis secondary to renal failure. I do not see the need for bicarb drip. I going to start bic arb oral. Case discussed with the patient, verbalized understanding, discussed with staff, agreed on the plan. MERARI Voice ID: [id number] Report ID: [id number]
[2020-03-19] MEDS ORDERED: ROSUVASTATIN 10 MG TAB PO SCH (21:00)
[2020-03-19] MEDS: SODIUM BICARB 325 MG TAB PO SCH (21:14)
[2020-03-20 05:51] LABS: Absolute Lymphocytes (CBC) 1.2 K/uL (0.7-4.9); Basophils % 0.6 % (0-1.3); Hematocrit 28.4 % (36.0-45.0); Lymphocytes % 15.7 % (15.3-44.8); MPV 9.6 fL (7.6-11.3); RBC Red Blood Cell Count 3.01 M/uL (3.86-4.86)
[2020-03-20 06:07] LABS: Albumin 2.6 g/dL (3.4-5.0); Magnesium 1.8 mg/dL (1.8-2.4); Phosphorus 3.9 mg/dL (2.5-4.9); Potassium 5.2 mmol/L (3.5-5.1)
[2020-03-20 06:37] VITALS: BMI 26.2
[2020-03-20] MEDS ORDERED: MAGNESIUM SULFATE 1 gm IVPB 1 GM/100 ML BAG IV ONE (06:38)
[2020-03-20] MEDS: SODIUM BICARB 325 MG TAB PO SCH (08:08)
[2020-03-20] MEDS: CLOPIDOGREL 75 MG TABLET PO SCH (08:08)
[2020-03-20] MEDS: NEBIVOLOL HCL 5 MG TAB PO SCH (08:08)
[2020-03-20] MEDS: CITALOPRAM 10 MG TABLET PO SCH (08:08)
[2020-03-20] MEDS: PANTOPRAZOLE 40MG TABLET PO SCH (08:10)
[2020-03-20] MEDS: ASPIRIN 81 MG CHEWABLE TABLET PO SCH (08:10)
[2020-03-20] MEDS: MEMANTINE HCL 10 MG TABLET PO SCH (08:10)
[2020-03-20 09:03] VITALS: O2SAT 95
--- NOTE | 2020-03-20 09:08 | ECHO ---
HEIGHT: 5 ft 4 in WEIGHT: 153 lb 1 oz DATE OF STUDY: 03/19/[address]: Mariusz Short MD 2-DIMENSIONAL: YES M.MODE: YES DOPPLER: YES COLOR FLOW: YES TDS: NO PORTABLE: NO DEFINITY: NO BUBBLE STUDY: NO DIAGNOSIS: CONGESTIVE HEART FAILURE, JASON CARDIAC HISTORY: CATHERIZATION: NO SURGERY: NO PROSTHETIC VALVE: NO PACEMAKER: NO MEASUREMENTS (cm) DIASTOLIC (NORMALS) SYSTOLIC (NORMALS) IVSd 1.0 (0.6-1.2) LA Diam 2.5 (1.9-4.0) LVEF 52% LVIDd 2.3 (3.5-5.7) LVIDs 1.7 (2.0-3.5) %FS 25% LVPWd 1.0 (0.6-1.2) Ao Diam 2.5 (2.0-3.7) 2 DIMENSIONAL ASSESSMENT: RIGHT ATRIUM: NORMAL LEFT ATRIUM: NORMAL RIGHT VENTRICLE: NORMAL LEFT VENTRICLE: NORMAL TRICUSPID VALVE: NORMAL MITRAL VALVE: MITRAL ANNULAR CALCIFICATION PULMONIC VALVE: NORMAL AORTIC VALVE: SCLEROSIS PERICARDIAL EFFUSION: NONE AORTIC ROOT: NORMAL LEFT VENTRICULAR WALL MOTION: NORMAL DOPPLER/COLOR FLOW: MILD AORTIC AND TRICUSPID REGURGITATION. COMMENTS: MILD AORTIC AND TRICUSPID REGURGITATION. NORMAL LEFT VENTRICULAR SIZE AND FUNCTION. NO EVIDENCE OF CONGESTIVE HEART FAILURE. MITRAL ANNULAR CALCIFICATION. AORTIC SCLEROSIS WITH NO STENOSIS. TECHNOLOGIST: Vi EASON
--- NOTE | 2020-03-20 11:24 | P.PN ---
Subjective Date of Service: 03/20/20 Chief Complaint: Acute kidney injury Subjective An 79-year-old woman, with PMHx of CAD, CKD III baseline Cr 1.4 , HTN, DM and CHF on lasix and AMERICA admitted or weakness and poor appetiate , CR 3.1 , K 5.8 on admission today No new complaints stable VS Cr down to 1.9, K 4.9 can be discharged from nephrology point of view cont to hold diuretics and AMERICA Cont bicarb as an oP f/u as an OP in 2-3 wks Social History: Denies smoking. Denies drinking. Denies drugs abuse. Family History: Positive for hypertension and coronary artery disease. Allergies: TO PENICILLIN, IODINE, AND CODEINE. Physical Examination: General: AAOX3, NAD neck: supple, no elevated JVD Heart: RRR, normal S1,2 no murmur or rub chest CTAB, no rales or whezes Abdomen: soft , NT ext : no edema A/P JASON improving due to dehydration and poor oral intake US: no hydro cont to hold diuretics an AMERICA take lasix only as needed for edema Hyperkalemia resolved con to hold AMERICA HAGMA cont o bicarb for now HTN controlled total donaldo spent 30min Physical Examination - Vital Signs Temperature: 97.1 F Blood Pressure: 143/66 Pulse: 77 Respirations: 19 Pulse Ox (%): 97 - Studies Medications List Reviewed: Yes
[2020-03-20] MEDS: D5 0.45 NS 1,000 ML IV SCH (12:01)
--- NOTE | 2020-03-20 12:02 | P.DS ---
Admission Date: 03/18/20 Discharge Date: 03/20/20 Primary Care Provider: unknown Disposition: DC HOME/HOME HEALTH CARE Discharge Condition: GOOD Reason for Admission: Acute kidney injury Consultations: Nephrology-Dr. Murphy Procedures: ECHO: EF 52% LEFT VENTRICULAR WALL MOTION: NORMAL DOPPLER/COLOR FLOW: MILD AORTIC AND TRICUSPID REGURGITATION. COMMENTS: MILD AORTIC AND TRICUSPID REGURGITATION. NORMAL LEFT VENTRICULAR SIZE AND FUNCTION. NO EVIDENCE OF CONGESTIVE HEART FAILURE. MITRAL ANNULAR CALCIFICATION. AORTIC SCLEROSIS WITH NO STENOSIS. Renal US: FINDINGS: Both kidneys are mildly echogenic. The right kidney measures 10.2 x 5.9 x 5.1 cm. Multiple benign appearing stable renal cysts. No hydronephrosis. The left kidney measures 10.7 x 5.0 x 4.7 cm. Multiple benign-appearing stable renal cysts. No hydronephrosis. The urinary bladder is incompletely distended without gross abnormality seen. IMPRESSION: Mildly echogenic kidneys bilaterally compatible with medical renal disease. Multiple benign bilateral renal cysts, unchanged. CT scan: FINDINGS: The evaluation of solid organs, vessels and bowel is limited secondary to the lack of contrast administration. The liver, pancreas, and adrenals appear grossly normal. Splenectomy Multiple, bilateral renal cysts without significant change. Small to moderate hiatal hernia. Aorto bi femoral graft.Spondylosis involves the lumbar spine resulting in spinal stenosis 3.8 centimeter descending thoracic aortic aneurysm unchanged Small gallstone. 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 Paget's disease involves the right hemipelvis. IMPRESSION: Cholelithiasis without cholecystitis Medical Problem List: Acute on chronic renal disease stage 2 with hyperkalemia likely with underlying dehydration Hypertension Anemia of chronic disease Cholelithiasis without cholecystitis History 3.8 cm descending thoracic aortic aneurysm GERD with hiatal hernia Diabetes mellitus type 2 insulin-dependent CAD Brief History of Present Illness: 79-year-old female presented to the emergency room with abnormal lab in dehydration. Patient with chronic renal disease. Patient admitted for further evaluation. Hospital Course: Patient presented with abnormal lab and dehydration related to acute on chronic renal disease stage II with noted hyperkalemia. Patient was given IV fluids. Nephrology was consulted. Hyperkalemia was corrected. Patient has done well. At discharge medications have been adjusted. She will no longer take [id number]. At discharge she will continue with sodium bicarb 650 mg 1 pill twice daily. Recommend to recheck lab-BMP in 1 week to monitor progress. This can be followed up with her supply chain logistics manager. Follow up with nephrology in 1-2 weeks. Patient with hypertension. Medications have been adjusted. As recommended above patient will no longer take [id number]. Will also discontinue hydralazine. Blood pressures have been well controlled with Bystolic 10 mg daily. Patient will continue with his medication at discharge. Recommend to monitor her blood pressures daily. Recommend to maintain blood pressures less 150/80. Further adjustment can be done by her PCP or nephrology. Patient with hyperlipidemia. At discharge she will continue with Crestor 20 mg daily. Patient with CAD. At discharge she will continue with aspirin 81 mg daily and Plavix 75 mg daily. Patient with depression. At discharge she will continue with Celexa 5 mg daily. This also component of dementia. She will continue with Namenda 5 mg 1 pill twice daily. Patient with GERD. At discharge she will continue with Protonix 40 mg daily. Patient has history of 3.8 cm descending thoracic aortic aneurysm. This can be followed up as an outpatient. CT scan also revealed cholelithiasis. This can be further addressed as an outpatient with surgery if symptoms present. Vital Signs/Physical Exam: Temp Pulse Resp BP Pulse Ox 97.1 F 77 19 143/66 H 97 03/20/20 11:24 03/20/20 11:24 03/20/20 11:24 03/20/20 11:24 03/20/20 11:24 General: Alert, In no apparent distress, Oriented x3, Cooperative HEENT: Atraumatic Neck: Supple Respiratory: Clear to auscultation bilaterally, Normal air movement Cardiovascular: Normal pulses, Regular rate/rhythm Gastrointestinal: Normal bowel sounds, Soft and benign, Non-distended, No tenderness, No masses, No rebound, No guarding Integumentary: No erythema, No warmth, No cyanosis Neurological: Normal speech, Normal strength at 5/5 x4 extr, Normal tone, Normal affect Laboratory Data at Discharge: WBC 7.6 K/uL (4.3-10.9) D 03/20/20 05:28 Hgb 9.2 g/dL (12.0-15.0) L 03/20/20 05:28 Hct 28.4 % (36.0-45.0) L D 03/20/20 05:28 Plt Count 216 K/uL (152-406) 03/20/20 05:28 PT 12.9 SECONDS (9.5-12.5) H 03/19/20 04:44 INR 1.10 03/19/20 04:44 APTT 26.1 SECONDS (24.3-36.9) 03/19/20 04:44 Sodium 145 mmol/L (136-145) 03/20/20 05:28 Potassium 4.9 mmol/L (3.5-5.1) 03/20/20 07:52 BUN 63 mg/dL (7-18) H 03/20/20 05:28 Creatinine 1.90 mg/dL (0.55-1.3) H 03/20/20 05:28 Glucose 109 mg/dL (74-106) H 03/20/20 05:28 Uric Acid 7.5 mg/dL (2.6-6.0) H 03/19/20 04:44 Phosphorus 3.9 mg/dL (2.5-4.9) 03/20/20 05:28 Magnesium 1.8 mg/dL (1.8-2.4) 03/20/20 05:28 Total Bilirubin 0.3 mg/dL (0.2-1.0) 03/19/20 04:44 AST 16 U/L (15-37) 03/19/20 04:44 ALT 14 U/L (12-78) 03/19/20 04:44 Alkaline Phosphatase 189 U/L (45-117) H 03/19/20 04:44 Home Medications: Citalopram [Celexa*] 5 mg PO DAILY #30 tablet 06/15/16 Memantine HCl [Namenda*] 5 mg PO BID #60 tablet 06/15/16 Rosuvastatin [Crestor*] 20 mg PO BEDTIME #30 tab 06/15/16 Clopidogrel Bisulfate [Plavix*] 75 mg PO DAILY 02/22/19 Aspirin 81 mg PO DAILY 02/23/19 Pantoprazole [Protonix Tab*] 40 mg PO DAILY 02/23/19 Nebivolol HCl [Bystolic*] 10 mg PO DAILY 03/18/20 Na Bicarb Tab [Sodium Bicarb 325 MG Tab*] 650 mg PO BID #60 tab 03/20/20 New Medications: Na Bicarb Tab [Sodium Bicarb 325 MG Tab*] 650 mg PO BID #60 tab Patient Discharge Instructions: 1. Follow up with PCP in one week. 2. Patient presented with abnormal lab and dehydration related to acute on chronic renal di sease stage II with noted hyperkalemia. Patient was given IV fluids. Nephrology was consulted. Hyperkalemia was corrected. Patient has done well. At discharge medications have been adjusted. She will no longer take [id number]. At discharge she will continue with sodium bicarb 650 mg 1 pill twice daily. Recommend to recheck lab-BMP in 1 week to monitor progress. This can be followed up with her supply chain logistics manager. Follow up with nephrology in 1-2 weeks. 3. Patient with hypertension. Medications have been adjusted. As recommended above patient will no longer take AMERICA-inhibitor- lisinopril. Will also discontinue hydralazine. Blood pressures have been well controlled with Bystolic 10 mg daily. Patient will continue with his medication at discharge. Recommend to monitor her blood pressures daily. Recommend to maintain blood pressures less 150/80. Further adjustment can be done by her PCP or nephrology. 4. Patient with hyperlipidemia. At discharge she will continue with Crestor 20 mg daily. 5. Patient with CAD. At discharge she will continue with aspirin 81 mg daily and Plavix 75 mg daily. 6. Patient with depression. At discharge she will continue with Celexa 5 mg daily. This also component of dementia. She will continue with Namenda 5 mg 1 pill twice daily. 7. Patient with GERD. At discharge she will continue with Protonix 40 mg daily. 8. Meir alegria has history of 3.8 cm descending thoracic aortic aneurysm. This can be followed up as an outpatient. CT scan also revealed cholelithiasis. This can be further addressed as an outpatient with surgery if symptoms present. Diet: Renal Activity: Ad ramon Time spent managing pt's care (in minutes): 55
[2020-03-20 12:11] VITALS: TEMP 98.3
[2020-03-20 14:45] VITALS: BP 150/80
== END 2020-03-20 14:44 | disposition home health service (06) | DRG 683 ==
LOC: ER 17:02 → ERHOLD 20:00 → 2ND 21:02
PROVIDERS: ADMIT Hospitalist; ATTEND Family Medicine
DX: N17.9 Acute kidney failure, unspecified (principal); E87.2 Acidosis; I12.9 Hypertensive chronic kidney disease with stage 1 through stage 4 chronic kidney disease, or unspecified chronic kidney disease; E87.5 Hyperkalemia; E86.0 Dehydration; D63.8 Anemia in other chronic diseases classified elsewhere; K80.20 Calculus of gallbladder without cholecystitis without obstruction; K21.9 Gastro-esophageal reflux disease without esophagitis; K44.9 Diaphragmatic hernia without obstruction or gangrene; E11.22 Type 2 diabetes mellitus with diabetic chronic kidney disease; I25.10 Atherosclerotic heart disease of native coronary artery without angina pectoris; F32.9 Major depressive disorder, single episode, unspecified; Z79.02 Long term (current) use of antithrombotics/antiplatelets; Z79.82 Long term (current) use of aspirin; Z79.899 Other long term (current) drug therapy; Z88.5 Allergy status to narcotic agent; Z88.0 Allergy status to penicillin; Z91.09 Other allergy status, other than to drugs and biological substances; Z90.710 Acquired absence of both cervix and uterus; Z90.49 Acquired absence of other specified parts of digestive tract; F17.200 Nicotine dependence, unspecified, uncomplicated; F03.90 Unspecified dementia, unspecified severity, without behavioral disturbance, psychotic disturbance, mood disturbance, and anxiety; I25.2 Old myocardial infarction; N18.2 Chronic kidney disease, stage 2 (mild)
CPT/HCPCS: 36415; 51702; 71045; 74176; 76770; 80048; 80053; 80069; 80076; 81003; 82553; 82570; 83605; 83735; 83880; 84132; 84145; 84156; 84443; 84484; 84550; 85025; 85610; 85730; 93005; 93306; 94640; 96360; 97110; 97116; 97161; 97530; 99285; J1940; J3475; J7030; J7040; J7799